=== PATIENT | male | born 1950 | race Caucasian/White ===

== ENCOUNTER 2016-12-28 08:33 | Emergency (ER) | payer MEDICARE, MEDICAID ==
[~2016-12-28 08:33] MED LIST: AMLO10TA2 PO; LORA-475 PO; PROT40TA PO
[2016-12-28 08:36] VITALS: BP 144/77; PULSE 81; RESP 14; TEMP 98; O2SAT 97
--- NOTE | 2016-12-28 09:43 | PD ---
HPI Chief Complaint: GI Complaint Time Seen by Provider: 09:16 Travel History International Travel<30 days: No Contact w/Intl Traveler<30days: No Traveled to known affect area: No History of Present Illness HPI This patient complains of having a hernia. He's had it for one month. He had extensive workup 4 days ago in [facility] emergency room including lab studies and CT of abdomen and pelvis. He was referred to general surgeon. He says he called the surgeon and they couldn't see him for a month so he came to the ER today demanding that this hernia be fix today. Patient immediately develops a hostile demeanor. He is challenging to evaluate or frankly even talk to. He is very insistent and critical and demanding. His symptoms seem quite mild. PFSH Past Medical History Anemia: Yes Anxiety: Yes Depression: Yes Cancer: No Cardiac Catheterization: Yes (stents) Cardiovascular Problems: Yes Diabetes: Yes Dialysis: Yes Endocrine: Yes Genitourinary: No Hepatitis: No Hiatal Hernia: No Immune Disorder: No Musculoskeletal: No Neurologic: No Psychiatric: No Respiratory: Yes (PULMONARY EDEMA) Myocardial Infarction: Yes Thyroid Disease: No Past Surgical History Abdominal Surgery: Yes (INGUINAL HERNIA REPAIR, CHOLECYSTECTOMY) AICD: Yes Body Medical Devices: LEFT ARM FISTULA Cardiac Surgery: Yes (AICD PLACEMENT, STENT PLACEMENT) Cholecystectomy: Yes Ear Surgery: No Endocrine Surgery: No Eye Surgery: No Genitourinary Surgery: No Gynecologic Surgery: No Joint Replacement: No Oral Surgery: No Pacemaker: No Thoracic Surgery: No Other Surgery: Yes (LUE fistula and R port) Social History Alcohol Use: No Tobacco Use: No Substance Use: No Allergies-Medications (Allergen,Severity, Reaction): Coded Allergies: penicillin G (Unverified Allergy, Severe, "WENT CRAZY" - NOT SURE OF REACTION, 10/29/16) Reported Meds & Prescriptions Reported Meds & Active Scripts Active Reported Amlodipine (Amlodipine Besylate) 10 Mg Tab 10 Mg PO NEEDED Ativan (Lorazepam) 2 Mg Tab 3 Mg PO DAILY PRN Protonix (Pantoprazole Sodium) 40 Mg Tab 1 Tab PO BID Review of Systems HENT: No: Headaches Cardiovascular: No: Chest Pain or Discomfort Respiratory: No: Cough Physical Exam Narrative GASTROINTESTINAL: Abdomen soft, non-tender, nondistended. Positive bowel sounds. No hepato-splenomegaly, or palpable masses. No guarding. He may have a very small umbilical hernia about 1 cm x 1 cm. Easily reducible. No erythema or warmth around it NECK: Symmetrical appearance, midline trachea. No mass or crepitus. Thyroid without enlargement, tenderness, or mass. Has dialysis graft in his left forearm SKIN: Focused skin assessment reveals no rash or ulcers. Skin is warm and dry. Palpation shows no induration or nodules. Data Data Last Documented VS Vital Signs Date Time Temp Pulse Resp B/P (MAP) Pulse Ox O2 Delivery O2 Flow Rate FiO2 12/28/16 08:36 98.0 81 14 144/77 (99) 97 MDM Medical Decision Making Medical Screen Exam Complete: Yes Emergency Medical Condition: Yes Medical Record Reviewed: Yes Differential Diagnosis Hernia, colitis, ileus Narrative Course I have reviewed the patient's electronic medical record. I reviewed his [place] paperwork from 4 days ago. He did have recent extensive workup I don't feel that workup is indicated to repeat. I suggested that he try a different general surgeon if the one he called couldn' t get him in for a month. He scoffed at this idea saying that he doesn't know any other surgeons. I offered to give him name and number of one to try. Patient made some disparaging remarks and stormed out of the emergency department without his paperwork He acted very immature Diagnosis Primary Impression: Umbilical hernia without obstruction and without gangrene Additional Impression: ESRD (end stage renal disease) Med/Other Pt SpecificInfo: Other Disposition: 01 DISCHARGE HOME Condition: Stable Avelino Kaur MD Dec 28, 2016 09:43
== END 2016-12-28 11:17 | disposition home or self-care (01) ==
LOC: NEPD 08:33
DX: K42.9 Umbilical hernia without obstruction or gangrene (principal); E11.22 Type 2 diabetes mellitus with diabetic chronic kidney disease; N18.6 End stage renal disease; Z99.2 Dependence on renal dialysis
CPT/HCPCS: 99281

== ENCOUNTER 2017-02-03 12:48 | Inpatient (IN) | payer MEDICARE, MEDICAID ==
[2017-02-03] VITALS (7 sets, daily range): BP systolic 105–119; BP diastolic 70–86; PULSE 64–122; RESP 16–20; TEMP 96.7–97.6; O2SAT 98–100
[~2017-02-03] VITALS: Ht 167.6 cm; Wt 59.0 kg
--- NOTE | 2017-02-03 13:14 | PD ---
HPI Chief Complaint: Respiratory Symptoms Time Seen by Provider: 13:01 Travel History International Travel<30 days: No Contact w/Intl Traveler<30days: No Traveled to known affect area: No History of Present Illness HPI 66-year-old male presents to the emergency department via EMS for evaluation of shortness of breath. Patient states he has felt short of breath for 1 month, but has been progressively worsening. Patient reports history of end-stage renal disease, liver disease, history of 5 cardiac stents, diabetes, pacemaker/ AICD. Patient denies any fevers or chills. He denies any chest pain. He states that his abdomen is getting more and more distended. He states he has had paracentesis and thoracentesis in the past, but has not had in probably 5-6 months. Patient states that he is feeling generally weak. No syncope. He is on 2 L O2 nasal cannula at home. He states he is supposed to wear 24 7, but does not wear it all the time. Patient states that he has not been eating as much because he doesn't want his abdomen to "get salcido". Patient is on hemodialysis with a fistula to the left upper extremity. He gets dialysis Thursday, , Thursday. He is due to get it today. He states that he missed 1 day last week, but does not remember which day it was. Severity is moderate. No exacerbating or alleviating factors. Patient states he is considering hospice, but is not on hospice as of yet. PFSH Past Medical History Anemia: Yes Anxiety: Yes Depression: Yes Cancer: No Cardiac Catheterization: Yes (stents) Cardiovascular Problems: Yes Diabetes: Yes Dialysis: Yes Endocrine: Yes Genitourinary: No Hepatitis: No Hiatal Hernia: No Immune Disorder: No Musculoskeletal: No Neurologic: No Psychiatric: No Respiratory: Yes (PULMONARY EDEMA) Myocardial Infarction: Yes Thyroid Disease: No Past Surgical History Abdominal Surgery: Yes (INGUINAL HERNIA REPAIR, CHOLECYSTECTOMY) AICD: Yes Body Medical Devices: LEFT ARM FISTULA Cardiac Surgery: Yes (AICD PLACEMENT, STENT PLACEMENT) Cholecystectomy: Yes Ear Surgery: No Endocrine Surgery: No Eye Surgery: No Genitourinary Surgery: No Gynecologic Surgery: No Joint Replacement: No Oral Surgery: No Pacemaker: No Thoracic Surgery: No Other Surgery: Yes (LUE fistula and R port) Social History Alcohol Use: No Tobacco Use: No Substance Use: No Allergies-Medications (Allergen,Severity, Reaction): Coded Allergies: penicillin G (Unverified Allergy, Severe, "WENT CRAZY" - NOT SURE OF REACTION, 02/03/17) Reported Meds & Prescriptions Reported Meds & Active Scripts Active Reported Carvedilol 6.25 Mg Tab 6.25 Mg PO BID [place] (Hydrocodone-Acetaminophen) 5 Mg-325 Mg Tab 1 Tab PO BID PRN Ativan (Lorazepam) 2 Mg Tab 3 Mg PO DAILY PRN Protonix (Pantoprazole Sodium) 40 Mg Tab 1 Tab PO DAILY Review of Systems Except as stated in HPI: all other systems reviewed are Neg Physical Exam Narrative GENERAL: Well-nourished, well-developed chronically ill male patient, afebrile. SKIN: Focused skin assessment warm/dry. Patient appears jaundiced. AV fistula noted to left upper extremity with positive bruit and thrill. HEAD: Normocephalic. Atraumatic. EYES: No scleral icterus. No injection or drainage. NECK: Supple, trachea midline. No JVD or lymphadenopathy. CARDIOVASCULAR: Regular rate and rhythm without murmurs, gallops, or rubs. RESPIRATORY: Breath sounds equal bilaterally. No accessory muscle use. Lungs sounds diminished in the bases. GASTROINTESTINAL: Abdomen distended, no tenderness to palpation. MUSCULOSKELETAL: No cyanosis, or edema. BACK: Nontender without obvious deformity. No CVA tenderness. Data Data Last Documented VS Vital Signs Date Time Temp Pulse Resp B/P (MAP) Pulse Ox O2 Delivery O2 Flow Rate FiO2 02/03/17 14:50 64 16 112/86 (95) 100 Room Air 02/03/17 14:37 2.00 02/03/17 13:01 97.6 Orders Orders Complete Blood Count With Diff (02/03/17 13:01) Comprehensive Metabolic Panel (02/03/17 13:01) B-Type Natriuretic Peptide (02/03/17 13:01) Act Partial Throm Time (Ptt) (02/03/17 13:01) Prothrombin Time / Inr (Pt) (02/03/17 13:01) Magnesium (Mg) (02/03/17 13:01) Ckmb (Isoenzyme) Profile (02/03/17 13:01) Troponin I (02/03/17 13:01) Iv Access Insert/Monitor (02/03/17 13:01) Electrocardiogram (02/03/17 13:01) Ecg Monitoring (02/03/17 13:01) Oximetry (02/03/17 13:01) Oxygen Administration (02/03/17 13:01) Chest, Single Ap (02/03/17 13:01) Sodium Chloride 0.9% Flush (Ns Flush) (02/03/17 13:15) Diltiazem Inj (Cardizem Inj) (02/03/17 14:45) Admit Order (Ed Use Only) (02/03/17 14:58) Consult Nephrology (02/03/17 ) Ns (Bolus) Inj (02/03/17 15:00) Labs Laboratory Tests Test 02/03/17 13:20 White Blood Count 9.9 TH/MM3 Red Blood Count 3.79 MIL/MM3 Hemoglobin 11.7 GM/DL Hematocrit 35.4 % Mean Corpuscular Volume 93.3 FL Mean Corpuscular Hemoglobin 30.8 PG Mean Corpuscular Hemoglobin Concent 33.0 % Red Cell Distribution Width 16.4 % Platelet Count 169 TH/MM3 Mean Platelet Volume 9.3 FL Neutrophils (%) (Auto) 77.9 % Lymphocytes (%) (Auto) 8.9 % Monocytes (%) (Auto) 9.0 % Eosinophils (%) (Auto) 3.0 % Basophils (%) (Auto) 1.2 % Neutrophils # (Auto) 7.7 TH/MM3 Lymphocytes # (Auto) 0.9 TH/MM3 Monocytes # (Auto) 0.9 TH/MM3 Eosinophils # (Auto) 0.3 TH/MM3 Basophils # (Auto) 0.1 TH/MM3 CBC Comment DIFF FINAL Differential Comment Prothrombin Time 13.3 SEC Prothromb Time International Ratio 1.2 RATIO Activated Partial Thromboplast Time 28.7 SEC Blood Urea Nitrogen 58 MG/DL Creatinine 5.87 MG/DL Random Glucose 197 MG/DL Total Protein 8.4 GM/DL Albumin 3.4 GM/DL Calcium Level 9.6 MG/DL Magnesium Level 1.8 MG/DL Alkaline Phosphatase 71 U/L Aspartate Amino Transf (AST/SGOT) 25 U/L Alanine Aminotransferase (ALT/SGPT) 21 U/L Total Bilirubin 0.8 MG/DL Sodium Level 132 MEQ/L Potassium Level 6.1 MEQ/L Chloride Level 100 MEQ/L Carbon Dioxide Level 24.1 MEQ/L Anion Gap 8 MEQ/L Estimat Glomerular Filtration Rate 10 ML/MIN Total Creatine Kinase 48 U/L Troponin I 0.04 NG/ML B-Type Natriuretic Peptide 2901 PG/ML MDM Medical Decision Making Medical Screen Exam Complete: Yes Emergency Medical Condition: Yes Medical Record Reviewed: Yes Interpretation(s) chest x-ray - FINDINGS: A single portable frontal view the chest shows cardiomegaly with pulmonary vascular engorgement. Small bilateral pleural effusions with bibasilar intra- alveolar infiltrates. Right-sided pacing device. No pneumothorax. Bony structures are unremarkable. CONCLUSION: Intra-alveolar pulmonary edema. Differential Diagnosis Chronic shortness breath versus pleural effusion versus ACS versus pneumonia Narrative Course 66-year-old male presents to the emergency department for evaluation of worsening shortness of breath for 1 month with history of ESRD, liver disease. EKG, CBC, CMP, BNP, CK, troponin, Magnesium, PTT, PT/INR, chest x-ray are ordered and pending. EKG shows atrial flutter/tachycardia with RVR, heart rate 107, no STEMI. CBC shows no acute abnormality. CMP . shows hyponatremia 132, hyperkalemia 6.1, BUN 58, currently 5.7, glucose 197. BNP is 2901. CK is 48. Troponin is 0.04. Magnesium is 1.8. Coags shows no acute abnormality. Chest x-ray shows and intraalveolar pulmonary edema. Patient's heart rate is in the 120s. He is given Cardizem 0.25 mg/kg. I spoke to patient's diesel mechanic, Dr. Ayala at [phone]. He recommended I contact Dr. Suarez who takes care of his patients here at [place]. Dr. Alberts accepted admission. After Cardizem, the patient became hypotensive with systolic blood pressures 69. He is given normal saline 250 mL's bolus. Blood pressure is up to [address] Alberts is at bedside and is aware. Diagnosis Primary Impression: ESRD (end stage renal disease) Additional Impressions: Pulmonary edema Qualified Codes: J81.0 - Acute pulmonary edema New onset atrial flutter Admitting Information Admitting Physician Requests: Admit Keaton Zacariasclint LEAL Feb 03, 2017 13:14
[2017-02-03] MEDS ORDERED: SODIUM CHLORIDE 0.9% FLUSH 10 ML FLUSH IVF PRN (13:15)
--- NOTE | 2017-02-03 13:40 | RADRPT ---
EXAM DATE/TIME: 02/03/2017 12:17 [facility] COMPARISON: No previous studies available for comparison. INDICATIONS : Short of breath, weakness, abdominal pain MEDICAL HISTORY : Cardiovascular disease. SURGICAL HISTORY : Pacemaker. ENCOUNTER: Initial ACUITY: 1 day PAIN SCORE: Non-responsive. LOCATION: Bilateral chest FINDINGS: A single portable frontal view the chest shows cardiomegaly with pulmonary vascular engorgement. Smal l bilateral pleural effusions with bibasilar intra-alveolar infiltrates. Right-sided pacing device. N o pneumothorax. Bony structures are unremarkable. CONCLUSION: Intra-alveolar pulmonary edema. Chico Ray Jr., MD on February 03, 2017 at 13:38 Board Certified Radiologist. This report was verified electronically.
[2017-02-03 13:55] LABS: AUTOMATED NEUTROPHIL # 7.7 TH/MM3 (1.8-7.7); BASOPHIL # 0.1 TH/MM3 (0-0.2); BASOPHIL % 1.2 % (0.0-2.0); EOSINOPHIL # 0.3 TH/MM3 (0-0.4); HEMATOCRIT 35.4 % (39.0-51.0); HEMO FLAGS DIFF FINAL; LYMPH % 8.9 % (9.0-44.0); LYMPHOCYTE # 0.9 TH/MM3 (1.0-4.8); MEAN CELL VOLUME 93.3 FL (80.0-100.0); MEAN CORPUSCULAR HEMOGLOBIN 30.8 PG (27.0-34.0); NEUT % 77.9 % (16.0-70.0); PLATELET COUNT 169 TH/MM3 (150-450); RED BLOOD COUNT 3.79 MIL/MM3 (4.50-5.90); RED CELL DISTRIBUTION WIDTH 16.4 % (11.6-17.2); WHITE BLOOD COUNT 9.9 TH/MM3 (4.0-11.0)
[2017-02-03 14:04] LABS: APTT (PATIENT) 28.7 SEC (24.3-30.1); INTERNATIONAL NORMALIZED RATIO 1.2 RATIO; PROTHROMBIN TIME - PATIENT 13.3 SEC (9.8-11.6)
[2017-02-03 14:12] LABS: ALT (GPT) 21 U/L (12-78); ANION GAP 8 MEQ/L (5-15); AST (GOT) 25 U/L (15-37); BICARBONATE 24.1 MEQ/L (21.0-32.0); BLOOD UREA NITROGEN 58 MG/DL (7-18); CHLORIDE 100 MEQ/L (98-107); GLOMERULAR FILTRATION RATE 10 ML/MIN (>89); MAGNESIUM 1.8 MG/DL (1.5-2.5); POTASSIUM 6.1 MEQ/L (3.5-5.1); SODIUM (NA) 132 MEQ/L (136-145)
[2017-02-03 14:16] LABS: ALKALINE PHOSPHATASE 71 U/L (45-117); TOTAL BILIRUBIN ADULT 0.8 MG/DL (0.2-1.0)
[2017-02-03 14:17] LABS: CREATINE KINASE 48 U/L (39-308)
[2017-02-03] MEDS ORDERED: CARV6.252 PO (14:26)
[2017-02-03] MEDS ORDERED: NORC5TAB PO (14:26)
[2017-02-03] MEDS ORDERED: DILTIAZEM HCL 25 MG/5 ML VIAL IV PUSH ONE (14:45)
[2017-02-03] MEDS ORDERED: SODIUM CHLOR 0.9% 250 ML INJ 250 ML IV ONE (15:00)
[2017-02-03] MEDS ORDERED: SODIUM CHLOR 0.9% 1000 ML INJ 1,000 ML OTHER PRN ×2 (15:09)
[2017-02-03] MEDS ORDERED: SODIUM CHLOR 0.9% 1000 ML INJ 1,000 ML IV PRN (15:09)
[2017-02-03] MEDS ORDERED: diphenhydrAMINE HCL 25 MG CAP PO PRN (15:15)
[2017-02-03] MEDS ORDERED: NALOXONE HCL 0.4 MG/ML AMP IV PUSH PRN (15:15)
[2017-02-03] MEDS ORDERED: SODIUM CHLORIDE 0.9% FLUSH 10 ML FLUSH IV FLUSH PRN ×2 (15:15)
[2017-02-03] MEDS ORDERED: ONDANSETRON HCL 4 MG/2 ML VIAL IVP PRN (15:15)
[2017-02-03] MEDS ORDERED: MANNITOL 12.5 GM/50 ML VIAL IV PRN (15:15)
[2017-02-03] MEDS ORDERED: ACETAMINOPHEN 325 MG TAB PO PRN ×3 (15:15)
[2017-02-03] MEDS ORDERED: ONDANSETRON HCL 4 MG/2 ML VIAL IV PUSH PRN (15:15)
[2017-02-03] MEDS ORDERED: PROCHLORPERAZINE 25 MG SUPP RECTAL PRN (15:15)
[2017-02-03] MEDS ORDERED: LACTULOSE SYRUP 20 GM/30 ML CUP PO PRN (15:15)
[2017-02-03] MEDS ORDERED: SENNOSIDES 8.6 MG TAB PO PRN (15:15)
[2017-02-03] MEDS ORDERED: MORPHINE SULFATE 4 MG/ML INJ IV PUSH PRN ×2 (15:15)
[2017-02-03] MEDS ORDERED: BISACODYL 10 MG SUPP RECTAL PRN (15:15)
[2017-02-03] MEDS ORDERED: MAGNESIUM HYDROXIDE SUSP 30 ML CUP PO PRN (15:15)
[2017-02-03] MEDS ORDERED: cloNIDine HCL 0.1 MG TAB PO PRN (15:15)
[2017-02-03] MEDS ORDERED: HEPARIN SODIUM - IV 10,000 UNITS/10 ML VIAL IV FLUSH PRN (15:15)
[2017-02-03] MEDS ORDERED: ALBUMIN 25% INJ 100 ML IV PRN (15:15)
[2017-02-03] MEDS ORDERED: oxyCODONE/ACETAMINOPHEN 5 MG/325 MG TAB PO PRN (15:15)
[2017-02-03] MEDS ORDERED: NITROGLYCERIN 0.4 MG SL 25 TABS/BTL SL PRN (15:15)
[2017-02-03] MEDS ORDERED: RESP: ALBUTEROL 2.5 MG/IPRATROPIUM 0.5 MG NEB (PRN) NEB (15:30)
--- NOTE | 2017-02-03 15:34 | HHI.HP ---
[facility] Primary Care Physician Unknown Admission Diagnosis ESRD on hemodialysis; hyperkalemia, pulmonary edema, atrial flutter Diagnoses: (1) Noncompliance with renal dialysis Diagnosis: Principal (2) Fluid overload Diagnosis: Principal (3) ESRD (end stage renal disease) (4) Pulmonary edema Diagnosis: Principal (5) New onset atrial flutter Diagnosis: Principal Travel History International Travel<30 Days: No Contact w/Intl Traveler <30 Da: No Traveled to Known Affected Are: No History of Present Illness Patient is a 66-year-old male who presents to the emergency department via EMS for evaluation of shortness of breath. He is felt short of breath for at least a month. Has had progressive worsening dyspnea. Patient reports history of end -stage renal disease and liver disease and history of 5 cardiac stents and diabetes and pacemaker AICD. Patient denies any fever, chills, patient denies any chest pain, and states his abdomen is getting distended states he's had a paracentesis and thoracentesis in the past 5-6 months. Patient has been feeling generally weak on 2 L by nasal cannula of oxygen at home supposed to wear 24/ does not wear it all the time. He states he has not been eating much does not want to have his abdomen get "salcido." Patient is on hemodialysis via a fistula to the left upper extremity. He is supposed to get dialysis on Thursday, , and Thursday but was due to get it today. He Missed a day last week has been poorly compliant with his dialysis Patient states he is considering hospice but not on hospice yet Review of Systems Constitutional: COMPLAINS OF: Fatigue, Change in appetite, DENIES: Diaphoretic episodes, Fever, Weight gain, Weight loss, Chills, Dizziness Endocrine: DENIES: Heat/cold intolerance, Polydipsia, Polyphagia Eyes: DENIES: Blurred vision, Diplopia Ears, nose, mouth, throat: DENIES: Tinnitus, Hearing loss, Vertigo, Nasal discharge Respiratory: COMPLAINS OF: Cough, DENIES: Apneas, Snoring, Wheezing Cardiovascular: DENIES: Chest pain, Palpitations, Syncope, Dyspnea on Exertion Gastrointestinal: COMPLAINS OF: Abdominal pain, DENIES: Black stools, Bloody stools, Constipation, Diarrhea, Nausea Genitourinary: DENIES: Sexual dysfunction, Urinary frequency Musculoskeletal: DENIES: Joint pain, Muscle aches, Stiffness Integumentary: DENIES: Abnormal pigmentation, Nail changes Hematologic/lymphatic: DENIES: Bruising, Lymphadenopathy Immunologic/allergic: DENIES: Eczema Neurologic: COMPLAINS OF: Abnormal gait, DENIES: Headache, Localized weakness, Paresthesias, Seizures, Speech Problems Psychiatric: COMPLAINS OF: Anxiety, Depression, Agitation, DENIES: Confusion, Mood changes, Hallucinations Except as stated in HPI: all other systems reviewed are Neg Past Family Social History Past Medical History Anemia Chronic anxiety Chronic depression History of cardiac catheterization history of 5 stents History of cardiovascular disease Diabetes mellitus History of end-stage renal disease on hemodialysis History of pulmonary edema history of myocardial infarction Past Surgical History Inguinal hernia repair Cholecystectomy AICD Left upper extremity AV fistula Cardiac stents 5 Multiple eye surgeries History of right-sided port Reported Medications Reported Meds & Active Scripts Active Reported Carvedilol 6.25 Mg Tab 6.25 Mg PO BID [place] (Hydrocodone-Acetaminophen) 5 Mg-325 Mg Tab 1 Tab PO BID PRN Ativan (Lorazepam) 2 Mg Tab 3 Mg PO DAILY PRN Protonix (Pantoprazole Sodium) 40 Mg Tab 1 Tab PO DAILY Allergies: Coded Allergies: penicillin G (Unverified Allergy, Severe, "WENT CRAZY" - NOT SURE OF REACTION, 02/03/17) Active Ordered Medications Current Medications Sodium Chloride (NS Flush) 2 ml UNSCH PRN IVF FLUSH AFTER USING IV ACCESS; Start 02/03/17 at 13:15 Diltiazem HCl (Cardizem Inj) 15 mg BOLUS ONCE IV PUSH Last administered on t 14:42; Start 02/03/17 at 14:45; Stop 02/03/17 at 14:46; Status DC Sodium Chloride 250 ml @ 250 mls/hr BOLUS ONCE IV ; Start 02/03/17 at 15:00; Stop 02/03/17 at 15:59 Sodium Chloride 1,000 ml @ 0 mls/hr Q0M PRN OTHER For Prime & Rinse Back; Start 02/03/17 at 15:09 Heparin Sodium (Porcine) (Heparin Inj) 8,000 units UNSCH PRN IV FLUSH WITH DIALYSIS; Start 02/03/17 at 15:15 Sodium Chloride 1,000 ml @ 200 mls/hr Q5H PRN IV WITH DIALYSIS; Start at 15:09; Status UNV Sodium Chloride 1,000 ml @ 0 mls/hr Q0M PRN OTHER WITH DIALYSIS; Start at 15:09; Status UNV Mannitol (Mannitol Inj) 12.5 gm UNSCH PRN IV WITH DIALYSIS; Start 02/03/17 at 15:15; Status UNV Albumin Human 100 ml @ 60 mls/hr UNSCH PRN IV WITH DIALYSIS; Start 02/03/17 at 15:15; Status UNV Sodium Chloride (NS Flush) 5 ml UNSCH PRN IV FLUSH WITH DIALYSIS; Start at 15:15; Status UNV Ondansetron HCl (Zofran Inj) 4 mg UNSCH PRN IV PUSH WITH DIALYSIS; Start 02/03 at 15:15; Status UNV Acetaminophen (Tylenol) 650 mg UNSCH PRN PO for headach, pain, temp > 101F; Start 02/03/17 at 15:15; Status UNV Diphenhydramine HCl (Benadryl) 25 mg UNSCH PRN PO for hives/itching/anaphylaxis ; Start 02/03/17 at 15:15; Status UNV Nitroglycerin (Nitrostat Sl) 0.4 mg UNSCH PRN SL CHEST PAIN; Start 02/03/17 at 15:15; Status UNV Clonidine (Catapres) 0.1 mg UNSCH PRN PO for BP > 180/100 X 2 readings; Start 02/03/17 at 15:15; Status UNV Epoetin Arias (Epogen Inj) 4,000 units UNSCH PRN IV PUSH WITH DIALYSIS; Start 02/03/17 at 15:15; Status UNV Gelatin (Gelfoam 12 Mm/7 Mm Top) 1 foam UNSCH PRN TOP SEE LABEL COMMENTS; Start 02/03/17 at 15:15; Status UNV Sodium Chloride (NS Flush) 2 ml UNSCH PRN IV FLUSH FLUSH AFTER USING IV ACCESS ; Start 02/03/17 at 15:15; Status UNV Sodium Chloride (NS Flush) 2 ml BID IV FLUSH ; Start 02/03/17 at 21:00; Status UNV Acetaminophen (Tylenol) 650 mg Q4H PRN PO TEMP > 100.4; Start 02/03/17 at 15: 15; Status UNV Ondansetron HCl (Zofran Inj) 4 mg Q6H PRN IVP NAUSEA OR VOMITING; Start at 15:15; Status UNV Prochlorperazine (Compazine Supp) 25 mg Q12H PRN AK NAUSEA OR VOMITING; Start 02/03/17 at 15:15; Status UNV Acetaminophen (Tylenol) 650 mg Q6H PRN PO PAIN SCALE 1 TO 2; Start 02/03/17 at 15:15; Status UNV Oxycodone/ Acetaminophen (Percocet 5-325 Mg) 1 tab Q6H PRN PO PAIN SCALE 3 TO 5; Start 02/03/17 at 15:15; Status UNV Oxycodone/ Acetaminophen (Percocet 10-325 Mg) 1 tab Q6H PRN PO PAIN SCALE 6 TO 10; Start 02/03/17 at 15:15; Status UNV Morphine Sulfate (Morphine Inj) 2 mg Q3H PRN IV PUSH Pain 3-5; if unable to take PO; Start 02/03/17 at 15:15; Status UNV Morphine Sulfate (Morphine Inj) 4 mg Q3H PRN IV PUSH Pain 6-10;if unable to take PO; Start 02/03/17 at 15:15; Status UNV Naloxone HCl (Narcan Inj) 0.4 mg UNSCH PRN IV PUSH SEE LABEL COMMENTS; Start 02/03/17 at 15:15; Status UNV Senna/Docusate Sodium (Althea-Colace) 1 tab BID PO ; Start 02/03/17 at 21:00; Status UNV Magnesium Hydroxide (Milk Of Magnesia Liq) 30 ml Q12H PRN PO Mild constipation ; Start 02/03/17 at 15:15; Status UNV Sennosides (Senokot) 17.2 mg Q12H PRN PO Moderate constipation; Start at 15:15; Status UNV Family History Noncontributory at this time Social History Denies any tobacco alcohol or illicits at this moment had done tobacco and alcohol previously Physical Exam Vital Signs Vital Signs Date Time Temp Pulse Resp B/P (MAP) Pulse Ox O2 Delivery O2 Flow Rate FiO2 02/03/17 14:50 64 16 112/86 (95) 100 Room Air 02/03/17 14:37 120 20 112/86 (95) 100 Nasal Cannula 2.00 02/03/17 13:03 121 17 106/75 (85) 100 Nasal Cannula 2.00 02/03/17 13:03 100 Nasal Cannula 2.00 02/03/17 13:01 97.6 122 18 106/75 (85) 98 Physical Exam GENERAL: This is a well-nourished, well-developed patient, in moderate distress. SKIN: No rashes, ecchymoses or lesions. Cool and dry. HEAD: Atraumatic. Normocephalic. No temporal or scalp tenderness. EYES: Pupils equal round and reactive. Extraocular motions intact. No scleral icterus. No injection or drainage. ENT: Nose without bleeding, purulent drainage or septal hematoma. Throat without erythema, tonsillar hypertrophy or exudate. Uvula midline. Airway patent. NECK: Trachea midline. No JVD or lymphadenopathy. Supple, nontender, no meningeal signs. CARDIOVASCULAR: IRRegular rate and rhythm without murmurs, gallops, or rubs. S1 and S2 no S3 or S4 RESPIRATORY: Some rhonchi No wheezes, rales, or rhonchi. Coarse breath sounds bilaterally GASTROINTESTINAL: Abdomen soft, non-tender, nondistended. No hepato-splenomegaly , or palpable masses. No guarding. MUSCULOSKELETAL: Extremities without clubbing, cyanosis, or edema. No joint tenderness, effusion, or edema noted. No calf tenderness. Negative Homans sign bilaterally. NEUROLOGICAL: Awake and alert. Cranial nerves II through XII intact. Motor and sensory grossly within normal limits. 4 out of 5 muscle strength in all muscle groups. Normal speech. Insight and judgment is limited Mood and behavior is somewhat appropriate Laboratory Laboratory Tests Test 02/03/17 13:20 White Blood Count 9.9 Red Blood Count 3.79 Hemoglobin 11.7 Hematocrit 35.4 Mean Corpuscular Volume 93.3 Mean Corpuscular Hemoglobin 30.8 Mean Corpuscular Hemoglobin Concent 33.0 Red Cell Distribution Width 16.4 Platelet Count 169 Mean Platelet Volume 9.3 Neutrophils (%) (Auto) 77.9 Lymphocytes (%) (Auto) 8.9 Monocytes (%) (Auto) 9.0 Eosinophils (%) (Auto) 3.0 Basophils (%) (Auto) 1.2 Neutrophils # (Auto) 7.7 Lymphocytes # (Auto) 0.9 Monocytes # (Auto) 0.9 Eosinophils # (Auto) 0.3 Basophils # (Auto) 0.1 CBC Comment DIFF FINAL Differential Comment Prothrombin Time 13.3 Prothromb Time International Ratio 1.2 Activated Partial Thromboplast Time 28.7 Blood Urea Nitrogen 58 Creatinine 5.87 Random Glucose 197 Total Protein 8.4 Albumin 3.4 Calcium Level 9.6 Magnesium Level 1.8 Alkaline Phosphatase 71 Aspartate Amino Transf (AST/SGOT) 25 Alanine Aminotransferase (ALT/SGPT) 21 Total Bilirubin 0.8 Sodium Level 132 Potassium Level 6.1 Chloride Level 100 Carbon Dioxide Level 24.1 Anion Gap 8 Estimat Glomerular Filtration Rate 10 Total Creatine Kinase 48 Troponin I 0.04 B-Type Natriuretic Peptide 2901 Result Diagram: 02/03/17 1320 02/03/17 1320 Imaging Last Impressions Chest X-Ray 02/03/17 1301 Signed Impressions: Service Date/Time: Friday, February 03, 2017 12:17 - CONCLUSION: Intra-alveolar pulmonary edema. MD Bree Aguirre Jr. VTE Risk Assessment Caprini VTE Risk Assessment: Mod/High Risk (score >= 2) Caprini Risk Assessment Model Point Value = 1 Point Value = 2 Point Value = 3 Point Value = 5 Age 41-60 Minor surgery BMI > 25 kg/m2 Swollen legs Varicose veins or History of unexplained or recurrent spontaneous Oral contraceptives or hormone replacement Sepsis (< 1 month) Serious lung disease, including pneumonia (< 1 month) Abnormal pulmonary function Acute myocardial infarction Congestive heart failure (< 1 month) History of inflammatory bowel disease Medical patient at bed rest Age 61-74 Arthroscopic surgery Major open surgery (> 45 min) Laparoscopic surgery (> 45 min) Malignancy Confined to bed (> 72 hours) Immobilizing plaster cast Central venous access Age >= 75 History of VTE Family history of VTE Factor V Leiden Prothrombin [id number] Lupus anticoagulant Anticardiolipin antibodies Elevated serum homocysteine Heparin-induced thrombocytopenia Other congenital or acquired thrombophilia Stroke (< 1 month) Elective arthroplasty Hip, pelvis, or leg fracture Acute spinal cord injury (< 1 month) Prophylaxis Regimen Total Risk Factor Score Risk Level Prophylaxis Regimen 0-1 Low Early ambulation 2 Moderate Order ONE of the following: *Sequential Compression Device (SCD) *Heparin 5000 units SQ BID 3-4 Higher Order ONE of the following medications: *Heparin 5000 units SQ TID *Enoxaparin/Lovenox 40 mg SQ daily (WT < 150 kg, CrCl > 30 mL/min) *Enoxaparin/Lovenox 30 mg SQ daily (WT < 150 kg, CrCl > 10-29 mL/min) *Enoxaparin/Lovenox 30 mg SQ BID (WT < 150 kg, CrCl > 30 mL/min) AND/OR *Sequential Compression Device (SCD) 5 or more Highest Order ONE of the following medications: *Heparin 5000 units SQ TID (Preferred with Epidurals) *Enoxaparin/Lovenox 40 mg SQ daily (WT < 150 kg, CrCl > 30 mL/min) *Enoxaparin/Lovenox 30 mg SQ daily (WT < 150 kg, CrCl > 10-29 mL/min) *Enoxaparin/Lovenox 30 mg SQ BID (WT < 150 kg, CrCl > 30 mL/min) AND *Sequential Compression Device (SCD) Assessment and Plan Assessment and Plan End-stage renal disease with noncompliance with fluid intake and dialysis Consult nephrology Hopefully to have hemodialysis today Hyperkalemia consult nephrology hopefully to have hemodialysis today Pulmonary edema due to noncompliance consult nephrology for dialysis Hypertension/A. fib/flutter by history continue on Coreg once blood pressure stable Noncompliance Hypotension currently will give fluids Physical therapy and occupational therapy to eval and treat Case management consult Palliative care consult Possible hospice consult Await nephrology eval and treat We'll check sugars before meals and at bedtime sliding scale coverage Code Status Full code at this time Discussed Condition With Discussed with the emergency room EXPLOSIVE OPERATOR GRENADE and patient and RN Physician Certification 2 Midnight Certification Type: Admission for Inpatient Services Order for Inpatient Services The services are ordered in accordance with Medicare regulations or non- Medicare payer requirements, as applicable. In the case of services not specified as inpatient-only, they are appropriately provided as inpatient services in accordance with the 2-midnight benchmark. Estimated LOS (days): 3 3 days is the estimated time the patient will need to remain in the hospital, assuming treatment plan goals are met and no additional complications. Post-Hospital Plan: Not yet determined Problem Qualifiers (1) Pulmonary edema: Qualified Codes: J81.0 - Acute pulmonary edema Amari Alberts DO Feb 03, 2017 15:34
[2017-02-03] MEDS ORDERED: DEXTROSE 50% IN WATER 50 ML VIAL(D50) IV PUSH PRN (15:45)
[2017-02-03] MEDS ORDERED: GLUCAGON 1 MG/ML VIAL OTHER PRN (15:45)
[2017-02-03] MEDS: GELATIN 12 MM/7 MM FOAM TOP PRN (16:40)
[2017-02-03] MEDS: INSULIN ASPART SUPPLEMENTAL SCALE SQ SCH ×2 (17:00→23:23)
--- NOTE | 2017-02-03 18:17 | PD.CONS ---
HPI Service Nephrology Consult Requested By [place] LEAL Reason for Consult ESRD CHF Primary Care Physician Unknown History of Present Illness Patient is a 66-year-old white male who has end-stage renal disease on hemodialysis, cardiomyopathy, congestive heart failure he stated that he was with Dr. QUIROS and then moved to this area and saw Dr. Amado, he misses dialysis yesterday and came to hospital with increasing shortness of breath, congestive heart failure, he was seen at dialysis and decided to sign off and go to the hospice as he is feeling sick he said that he has generalized anasarca , pleural effusion abdominal fluid buildup and he is not going to stay on dialysis Review of Systems Constitutional: COMPLAINS OF: Fatigue Respiratory: COMPLAINS OF: Shortness of breath Cardiovascular: COMPLAINS OF: Chest pain, Lower Extremity Edema, Orthopnea Gastrointestinal: COMPLAINS OF: Anorexia Musculoskeletal: COMPLAINS OF: Joint pain, Muscle aches Neurologic: COMPLAINS OF: Abnormal gait Psychiatric: COMPLAINS OF: Depression Past Family Social History Allergies: Coded Allergies: penicillin G (Verified Allergy, Severe, "WENT CRAZY" - NOT SURE OF REACTION, 02/03/17) Past Medical History Diabetes Hypertension Coronary artery disease Cardiomyopathy AICD CHF Anemia Anasarca Past Surgical History Inguinal hernia repair AV fistula left forearm Coronary artery stents 5 AICD placement Reported Medications Reported Meds & Active Scripts Active Reported Carvedilol 6.25 Mg Tab 6.25 Mg PO BID [place] (Hydrocodone-Acetaminophen) 5 Mg-325 Mg Tab 1 Tab PO BID PRN Ativan (Lorazepam) 2 Mg Tab 3 Mg PO DAILY PRN Protonix (Pantoprazole Sodium) 40 Mg Tab 1 Tab PO DAILY Active Ordered Medications Current Medications Medications (Trade) Dose Ordered Sig/Ayla Route Start Time Stop Time Status Last Admin Sodium Chloride 1,000 ml @ 0 mls/hr Q0M PRN OTHER 02/03/17 15:09 (Heparin Inj) 8,000 units UNSCH PRN IV FLUSH 02/03/17 15:15 Sodium Chloride 1,000 ml @ 200 mls/hr Q5H PRN IV 02/03/17 15:09 Sodium Chloride 1,000 ml @ 0 mls/hr Q0M PRN OTHER 02/03/17 15:09 (Mannitol Inj) 12.5 gm UNSCH PRN IV 02/03/17 15:15 Albumin Human 100 ml @ 60 mls/hr UNSCH PRN IV 02/03/17 15:15 (NS Flush) 5 ml UNSCH PRN IV FLUSH 02/03/17 15:15 (Zofran Inj) 4 mg UNSCH PRN IV PUSH 02/03/17 15:15 (Tylenol) 650 mg UNSCH PRN PO 02/03/17 15:15 (Benadryl) 25 mg UNSCH PRN PO 02/03/17 15:15 (Nitrostat Sl) 0.4 mg UNSCH PRN SL 02/03/17 15:15 (Catapres) 0.1 mg UNSCH PRN PO 02/03/17 15:15 (Epogen Inj) 4,000 units UNSCH PRN IV PUSH 02/03/17 15:15 (Gelfoam 12 Mm/7 Mm Top) 1 foam UNSCH PRN TOP 02/03/17 15:15 (NS Flush) 2 ml UNSCH PRN IV FLUSH 02/03/17 15:15 (NS Flush) 2 ml BID IV FLUSH 02/03/17 21:00 (Tylenol) 650 mg Q4H PRN PO 02/03/17 15:15 (Zofran Inj) 4 mg Q6H PRN IVP 02/03/17 15:15 (Compazine Supp) 25 mg Q12H PRN RECTAL 02/03/17 15:15 (Tylenol) 650 mg Q6H PRN PO 02/03/17 15:15 (Percocet 5-325 Mg) 1 tab Q6H PRN PO 02/03/17 15:15 (Percocet 10-325 Mg) 1 tab Q6H PRN PO 02/03/17 15:15 (Morphine Inj) 2 mg Q3H PRN IV PUSH 02/03/17 15:15 (Morphine Inj) 4 mg Q3H PRN IV PUSH 02/03/17 15:15 (Narcan Inj) 0.4 mg UNSCH PRN IV PUSH 02/03/17 15:15 (Althea-Colace) 1 tab BID PO 02/03/17 21:00 (Milk Of Magnesia Liq) 30 ml Q12H PRN PO 02/03/17 15:15 (Senokot) 17.2 mg Q12H PRN PO 02/03/17 15:15 (Dulcolax Supp) 10 mg DAILY PRN RECTAL 02/03/17 15:15 (Lactulose Liq) 30 ml DAILY PRN PO 02/03/17 15:15 (Coreg) 6.25 mg BID PO 02/03/17 21:00 (Protonix) 40 mg DAILY PO 02/04/17 09:00 (Duoneb Neb) 1 ampule Q4HR NEB PRN NEB 02/03/17 15:30 (D50w (Vial) Inj) 50 ml UNSCH PRN IV PUSH 02/03/17 15:45 (Glucagon Inj) 1 mg UNSCH PRN OTHER 02/03/17 15:45 (NovoLOG SUPPLEMENTAL SCALE) 1 ACHS SLIDING SCALE SQ 02/03/17 17:00 Family History Noncontributory Social History He denies smoking or alcohol use Physical Exam Vital Signs Vital Signs Date Time Temp Pulse Resp B/P (MAP) Pulse Ox O2 Delivery O2 Flow Rate FiO2 02/03/17 15:47 100 Nasal Cannula 2.00 02/03/17 14:50 64 16 112/86 (95) 100 Room Air 02/03/17 14:37 120 20 112/86 (95) 100 Nasal Cannula 2.00 02/03/17 13:03 121 17 106/75 (85) 100 Nasal Cannula 2.00 02/03/17 13:03 100 Nasal Cannula 2.00 02/03/17 13:01 97.6 122 18 106/75 (85) 98 Physical Exam GENERAL: Malnourished, well-developed patient. SKIN: Warm and dry. HEAD: Normocephalic. EYES: No scleral icterus. No injection or drainage. NECK: Supple, trachea midline. No JVD or lymphadenopathy. CARDIOVASCULAR: Irregular AICD in place RESPIRATORY: Diminished at bases GASTROINTESTINAL: Abdomen soft, non-tender, nondistended. EXTREMITIES: No cyanosis, mild edema. NEUROLOGICAL: Awake, alert, and oriented x 3. Non-focal. Laboratory Laboratory Tests Test 02/03/17 13:20 White Blood Count 9.9 Red Blood Count 3.79 Hemoglobin 11.7 Hematocrit 35.4 Mean Corpuscular Volume 93.3 Mean Corpuscular Hemoglobin 30.8 Mean Corpuscular Hemoglobin Concent 33.0 Red Cell Distribution Width 16.4 Platelet Count 169 Mean Platelet Volume 9.3 Neutrophils (%) (Auto) 77.9 Lymphocytes (%) (Auto) 8.9 Monocytes (%) (Auto) 9.0 Eosinophils (%) (Auto) 3.0 Basophils (%) (Auto) 1.2 Neutrophils # (Auto) 7.7 Lymphocytes # (Auto) 0.9 Monocytes # (Auto) 0.9 Eosinophils # (Auto) 0.3 Basophils # (Auto) 0.1 CBC Comment DIFF FINAL Differential Comment Prothrombin Time 13.3 Prothromb Time International Ratio 1.2 Activated Partial Thromboplast Time 28.7 Blood Urea Nitrogen 58 Creatinine 5.87 Random Glucose 197 Total Protein 8.4 Albumin 3.4 Calcium Level 9.6 Magnesium Level 1.8 Alkaline Phosphatase 71 Aspartate Amino Transf (AST/SGOT) 25 Alanine Aminotransferase (ALT/SGPT) 21 Total Bilirubin 0.8 Sodium Level 132 Potassium Level 6.1 Chloride Level 100 Carbon Dioxide Level 24.1 Anion Gap 8 Estimat Glomerular Filtration Rate 10 Total Creatine Kinase 48 Troponin I 0.04 B-Type Natriuretic Peptide 2901 Result Diagram: 02/03/17 1320 02/03/17 1320 Imaging Last Impressions Chest X-Ray 02/03/17 1301 Signed Impressions: Service Date/Time: Friday, February 03, 2017 12:17 - CONCLUSION: Intra-alveolar pulmonary edema. Chico Ray Jr., MD Assessment and Plan Problem List: (1) ESRD (end stage renal disease) ICD Codes: N18.6 - End stage renal disease Status: Acute Plan: Patient signed AMA and wanted to go to hospice, he stopped his dialysis and had partial dialysis with 400 cc removed He was told the consequences of not doing the dialysis including He is fully aware and wants to make that decision as he is not feeling any better (2) Pulmonary edema ICD Codes: J81.1 - Chronic pulmonary edema Status: Acute Plan: Patient stopping dialysis now and going to hospice Problem Qualifiers (1) Pulmonary edema: Qualified Codes: J81.0 - Acute pulmonary edema Ara Suarez MD Feb 03, 2017 18:17
[2017-02-03] MEDS: oxyCODONE/ACETAMINOPHEN 10 MG/325 MG TAB PO PRN (20:04)
[2017-02-03] MEDS: DOCUSATE SODIUM 50 MG/SENNA 8.6 MG TAB PO SCH (23:24)
[2017-02-03] MEDS: CARVEDILOL 6.25 MG TAB PO SCH (23:25)
[2017-02-04] MEDS: SODIUM CHLORIDE 0.9% FLUSH 10 ML FLUSH IV FLUSH SCH ×3 (01:29→21:39)
[2017-02-04] MEDS: oxyCODONE/ACETAMINOPHEN 10 MG/325 MG TAB PO PRN ×3 (03:10→17:24)
[2017-02-04 04:00] VITALS: BP 99/64; PULSE 93; RESP 20; TEMP 96.7; O2SAT 94
[2017-02-04 05:23] LABS: AUTOMATED NEUTROPHIL # 5.4 TH/MM3 (1.8-7.7); BASOPHIL # 0.1 TH/MM3 (0-0.2); BASOPHIL % 1.4 % (0.0-2.0); EOSINOPHIL # 0.3 TH/MM3 (0-0.4); EOSINOPHIL % 3.5 % (0.0-4.0); HEMATOCRIT 33.3 % (39.0-51.0); HEMO FLAGS DIFF FINAL; LYMPH % 14.3 % (9.0-44.0); LYMPHOCYTE # 1.1 TH/MM3 (1.0-4.8); MEAN CELL VOLUME 92.2 FL (80.0-100.0); MEAN CORPUSCULAR HEMOGLOBIN 30.2 PG (27.0-34.0); MEAN CORPUSCULAR HGB CONC 32.8 % (32.0-36.0); MONO % 13.1 % (0.0-8.0); NEUT % 67.7 % (16.0-70.0); PLATELET COUNT 133 TH/MM3 (150-450); RED BLOOD COUNT 3.61 MIL/MM3 (4.50-5.90); RED CELL DISTRIBUTION WIDTH 16.4 % (11.6-17.2)
[2017-02-04 05:50] LABS: ALT (GPT) 25 U/L (12-78); ANION GAP 11 MEQ/L (5-15); AST (GOT) 22 U/L (15-37); BICARBONATE 24.6 MEQ/L (21.0-32.0); BLOOD UREA NITROGEN 52 MG/DL (7-18); CHLORIDE 102 MEQ/L (98-107); GLOMERULAR FILTRATION RATE 10 ML/MIN (>89); MAGNESIUM 1.7 MG/DL (1.5-2.5); POTASSIUM 5.4 MEQ/L (3.5-5.1); SODIUM (NA) 138 MEQ/L (136-145)
[2017-02-04 05:59] LABS: ALKALINE PHOSPHATASE 64 U/L (45-117); FREE T4 1.05 NG/DL (0.76-1.46); TOTAL BILIRUBIN ADULT 0.8 MG/DL (0.2-1.0)
[2017-02-04 06:00] LABS: CREATINE KINASE 32 U/L (39-308)
[2017-02-04] MEDS: INSULIN ASPART SUPPLEMENTAL SCALE SQ SCH ×4 (08:00→21:23)
[2017-02-04 08:19] VITALS: BP 110/70; PULSE 97; RESP 17; TEMP 97.4; O2SAT 94
[2017-02-04] MEDS: DOCUSATE SODIUM 50 MG/SENNA 8.6 MG TAB PO SCH ×2 (08:25→21:39)
[2017-02-04] MEDS: CARVEDILOL 6.25 MG TAB PO SCH ×2 (09:00→21:39)
[2017-02-04] MEDS: PANTOPRAZOLE SOD 40 MG DELAYED RELEASE TAB PO SCH (09:13)
--- NOTE | 2017-02-04 09:58 | EKG ---
Date Performed: 02/03/2017 Time Performed: 15:14:58 PTAGE: 66 years EKG: ECTOPIC ATRIAL BRADYCARDIA LOW QRS VOLTAGE IN EXTREMITY LEADS SEPTAL MYOCARDIAL INFARCTION ABNORMAL ECG PREVIOUS TRACING : 02/03/2017 13.28 DOCTOR: Juan Pablo Krause Interpretating Date/Time 02/04/2017 09:56:01
--- NOTE | 2017-02-04 10:04 | EKG ---
Date Performed: 02/03/2017 Time Performed: 13:28:10 PTAGE: 66 years EKG: ATRIAL FLUTTER/TACHYCARDIA WITH RAPID VENTRICULAR RESPONSE LOW QRS VOLTAGE IN EXTREMITY MARIE DS SEPTAL MYOCARDIAL INFARCTION ABNORMAL ECG NO PREVIOUS TRACING DOCTOR: Juan Pablo Krause Interpretating Date/Time 02/04/2017 10:02:41
--- NOTE | 2017-02-04 11:22 | HHI.HCPN ---
Palliative care consulted to assist with goals of care for Mr. Vann. Appears later in the evening he indicated he wanted to transition to comfort focused care supported by hospice services. Hospice consult was placed. Palliative care will remain available should Mr. Vann decide not to engage hospice services. Sunshine Ray, SALVAGE INSPECTOR Feb 04, 2017 11:22
--- NOTE | 2017-02-04 11:38 | HHI.PR ---
Subjective Remarks Patient is a 66-year-old male who presents to the emergency department via EMS for evaluation of shortness of breath. He is felt short of breath for at least a month. Has had progressive worsening dyspnea. Patient reports history of end -stage renal disease and liver disease and history of 5 cardiac stents and diabetes and pacemaker AICD. Patient denies any fever, chills, patient denies any chest pain, and states his abdomen is getting distended states he's had a paracentesis and thoracentesis in the past 5-6 months. Patient has been feeling generally weak on 2 L by nasal cannula of oxygen at home supposed to wear 06/10 does not wear it all the time. He states he has not been eating much does not want to have his abdomen get "salcido." Patient is on hemodialysis via a fistula to the left upper extremity. He is supposed to get dialysis on Thursday, , and Thursday but was due to get it today. He Missed a day last week has been poorly compliant with his dialysis Patient states he is considering hospice but not on hospice yet Patient is a 66-year-old white male who has end-stage renal disease on hemodialysis, cardiomyopathy, congestive heart failure he stated that he was with Dr. QUIROS and then moved to this area and saw Dr. Amado, he misses dialysis yesterday and came to hospital with increasing shortness of breath, congestive heart failure, he was seen at dialysis and decided to sign off and go to the hospice as he is feeling sick he said that he has generalized anasarca , pleural effusion abdominal fluid buildup and he is not going to stay on dialysis 02-04 patient stopped dialysis yesterday Patient is considering hospice but per our discussion it appears he wants procedures done which does not fit with hospice Patient is very anxious. Wants Ativan We'll get physical therapy and occupational therapy to eval and treat We'll get a.m. labs Possible discharge later this week Objective Vitals Vital Signs Date Time Temp Pulse Resp B/P (MAP) Pulse Ox O2 Delivery O2 Flow Rate FiO2 02/04/17 10:13 18 02/04/17 08:19 97.4 97 17 110/70 (83) 94 02/04/17 04:00 96.7 93 20 99/64 (76) 94 02/03/17 23:16 96.7 86 105/70 (82) 98 02/03/17 20:00 97.0 85 20 119/71 (87) 99 02/03/17 15:47 100 Nasal Cannula 2.00 02/03/17 14:50 64 16 112/86 (95) 100 Room Air 02/03/17 14:37 120 20 112/86 (95) 100 Nasal Cannula 2.00 02/03/17 13:03 121 17 106/75 (85) 100 Nasal Cannula 2.00 02/03/17 13:03 100 Nasal Cannula 2.00 02/03/17 13:01 97.6 122 18 106/75 (85) 98 I/O 02/03/17 02/03/17 02/03/17 02/04/17 02/04/17 02/04/17 07:00 15:00 23:00 07:00 15:00 23:00 Intake Total 120 ml 120 ml Output Total 500 ml Balance -380 ml 120 ml Intake Oral 120 ml 120 ml Output Hemodialysis 500 ml Result Diagram: 02/04/17 0440 02/04/17 0440 Other Results Laboratory Tests Test 02/03/17 13:20 02/04/17 04:40 White Blood Count 9.9 TH/MM3 8.0 TH/MM3 Red Blood Count 3.79 MIL/MM3 3.61 MIL/MM3 Hemoglobin 11.7 GM/DL 10.9 GM/DL Hematocrit 35.4 % 33.3 % Mean Corpuscular Volume 93.3 FL 92.2 FL Mean Corpuscular Hemoglobin 30.8 PG 30.2 PG Mean Corpuscular Hemoglobin Concent 33.0 % 32.8 % Red Cell Distribution Width 16.4 % 16.4 % Platelet Count 169 TH/MM3 133 TH/MM3 Mean Platelet Volume 9.3 FL 9.5 FL Neutrophils (%) (Auto) 77.9 % 67.7 % Lymphocytes (%) (Auto) 8.9 % 14.3 % Monocytes (%) (Auto) 9.0 % 13.1 % Eosinophils (%) (Auto) 3.0 % 3.5 % Basophils (%) (Auto) 1.2 % 1.4 % Neutrophils # (Auto) 7.7 TH/MM3 5.4 TH/MM3 Lymphocytes # (Auto) 0.9 TH/MM3 1.1 TH/MM3 Monocytes # (Auto) 0.9 TH/MM3 1.0 TH/MM3 Eosinophils # (Auto) 0.3 TH/MM3 0.3 TH/MM3 Basophils # (Auto) 0.1 TH/MM3 0.1 TH/MM3 CBC Comment DIFF FINAL DIFF FINAL Differential Comment Prothrombin Time 13.3 SEC Prothromb Time International Ratio 1.2 RATIO Activated Partial Thromboplast Time 28.7 SEC Blood Urea Nitrogen 58 MG/DL 52 MG/DL Creatinine 5.87 MG/DL 5.56 MG/DL Random Glucose 197 MG/DL 136 MG/DL Total Protein 8.4 GM/DL 7.7 GM/DL Albumin 3.4 GM/DL 3.6 GM/DL Calcium Level 9.6 MG/DL 8.9 MG/DL Magnesium Level 1.8 MG/DL 1.7 MG/DL Alkaline Phosphatase 71 U/L 64 U/L Aspartate Amino Transf (AST/SGOT) 25 U/L 22 U/L Alanine Aminotransferase (ALT/SGPT) 21 U/L 25 U/L Total Bilirubin 0.8 MG/DL 0.8 MG/DL Sodium Level 132 MEQ/L 138 MEQ/L Potassium Level 6.1 MEQ/L 5.4 MEQ/L Chloride Level 100 MEQ/L 102 MEQ/L Carbon Dioxide Level 24.1 MEQ/L 24.6 MEQ/L Anion Gap 8 MEQ/L 11 MEQ/L Estimat Glomerular Filtration Rate 10 ML/MIN 10 ML/MIN Total Creatine Kinase 48 U/L 32 U/L Troponin I 0.04 NG/ML 0.03 NG/ML B-Type Natriuretic Peptide 2901 PG/ML Phosphorus Level 4.4 MG/DL Free Thyroxine 1.05 NG/DL Thyroid Stimulating Hormone 3rd Gen 3.060 uIU/ML Imaging Last Impressions Chest X-Ray 02/03/17 1301 Signed Impressions: Service Date/Time: Friday, February 03, 2017 12:17 - CONCLUSION: Intra-alveolar pulmonary edema. Chico Ray Jr., MD Objective Remarks GENERAL: Awake and alert talkative and anxious has not made up his mind about hospice SKIN: Warm and dry. HEAD: Atraumatic. Normocephalic. EYES: Pupils equal and round. No scleral icterus. No injection or drainage. Extraocular muscles intact ENT: No nasal bleeding or discharge. Mucous membranes pink and moist. Tongue is midline NECK: Trachea midline. No JVD. Neck is supple CARDIOVASCULAR: Regular rate and rhythm. S1 and S2 no S3 or S4 RESPIRATORY: No accessory muscle use. Clear to auscultation. Breath sounds equal bilaterally. GASTROINTESTINAL: Abdomen soft, non-tender, nondistended. Hepatic and splenic margins not palpable. MUSCULOSKELETAL: Extremities without clubbing, cyanosis, or edema. No obvious deformities. NEUROLOGICAL: Awake and alert. No obvious cranial nerve deficits. Motor grossly within normal limits. 4 out of 5 muscle strength in the arms and legs. Normal speech. PSYCHIATRIC: INAppropriate mood and affect; insight and judgment ABnormal. Procedures Hemodialysis Medications and IVs Current Medications Sodium Chloride (NS Flush) 2 ml UNSCH PRN IVF FLUSH AFTER USING IV ACCESS; Start 02/03/17 at 13:15; Stop 02/03/17 at 15:35; Status DC Diltiazem HCl (Cardizem Inj) 15 mg BOLUS ONCE IV PUSH Last administered on 14:42; Start 02/03/17 at 14:45; Stop 02/03/17 at 14:46; Status DC Sodium Chloride 250 ml @ 250 mls/hr BOLUS ONCE IV Last administered on 15:31; Start 02/03/17 at 15:00; Stop 02/03/17 at 15:59; Status DC Sodium Chloride 1,000 ml @ 0 mls/hr Q0M PRN OTHER For Prime & Rinse Back Last administered on 02/03/17 16:40; Start 02/03/17 at 15:09 Heparin Sodium (Porcine) (Heparin Inj) 8,000 units UNSCH PRN IV FLUSH WITH DIALYSIS; Start 02/03/17 at 15:15 Sodium Chloride 1,000 ml @ 200 mls/hr Q5H PRN IV WITH DIALYSIS; Start at 15:09 Sodium Chloride 1,000 ml @ 0 mls/hr Q0M PRN OTHER WITH DIALYSIS; Start at 15:09 Mannitol (Mannitol Inj) 12.5 gm UNSCH PRN IV WITH DIALYSIS Last administered on 02/03/17 16:40; Start 02/03/17 at 15:15 Albumin Human 100 ml @ 60 mls/hr UNSCH PRN IV WITH DIALYSIS; Start 02/03/17 at 15:15 Sodium Chloride (NS Flush) 5 ml UNSCH PRN IV FLUSH WITH DIALYSIS; Start at 15:15 Ondansetron HCl (Zofran Inj) 4 mg UNSCH PRN IV PUSH WITH DIALYSIS; Start 02/03 at 15:15 Acetaminophen (Tylenol) 650 mg UNSCH PRN PO for headach, pain, temp > 101F; Start 02/03/17 at 15:15 Diphenhydramine HCl (Benadryl) 25 mg UNSCH PRN PO for hives/itching/anaphylaxis ; Start 02/03/17 at 15:15 Nitroglycerin (Nitrostat Sl) 0.4 mg UNSCH PRN SL CHEST PAIN; Start 02/03/17 at 15:15 Clonidine (Catapres) 0.1 mg UNSCH PRN PO for BP > 180/100 X 2 readings; Start 02/03/17 at 15:15 Epoetin Arias (Epogen Inj) 4,000 units UNSCH PRN IV PUSH WITH DIALYSIS; Start 02/03/17 at 15:15 Gelatin (Gelfoam 12 Mm/7 Mm Top) 1 foam UNSCH PRN TOP SEE LABEL COMMENTS Last administered on 02/03/17t 16:40; Start 02/03/17 at 15:15 Sodium Chloride (NS Flush) 2 ml UNSCH PRN IV FLUSH FLUSH AFTER USING IV ACCESS ; Start 02/03/17 at 15:15 Sodium Chloride (NS Flush) 2 ml BID IV FLUSH Last administered on 02/04/17t 09 :00; Start 02/03/17 at 21:00 Acetaminophen (Tylenol) 650 mg Q4H PRN PO TEMP > 100.4; Start 02/03/17 at 15: 15 Ondansetron HCl (Zofran Inj) 4 mg Q6H PRN IVP NAUSEA OR VOMITING; Start at 15:15 Prochlorperazine (Compazine Supp) 25 mg Q12H PRN RECTAL NAUSEA OR VOMITING; Start 02/03/17 at 15:15 Acetaminophen (Tylenol) 650 mg Q6H PRN PO PAIN SCALE 1 TO 2; Start 02/03/17 at 15:15 Oxycodone/ Acetaminophen (Percocet 5-325 Mg) 1 tab Q6H PRN PO PAIN SCALE 3 TO 5; Start 02/03/17 at 15:15 Oxycodone/ Acetaminophen (Percocet 10-325 Mg) 1 tab Q6H PRN PO PAIN SCALE 6 TO 10 Last administered on 02/04/17 09:13; Start 02/03/17 at 15:15 Morphine Sulfate (Morphine Inj) 2 mg Q3H PRN IV PUSH Pain 3-5; if unable to take PO; Start 02/03/17 at 15:15 Morphine Sulfate (Morphine Inj) 4 mg Q3H PRN IV PUSH Pain 6-10;if unable to take PO; Start 02/03/17 at 15:15 Naloxone HCl (Narcan Inj) 0.4 mg UNSCH PRN IV PUSH SEE LABEL COMMENTS; Start 02/03/17 at 15:15 Senna/Docusate Sodium (Althea-Colace) 1 tab BID PO ; Start 02/03/17 at 21:00 Magnesium Hydroxide (Milk Of Magnesia Liq) 30 ml Q12H PRN PO Mild constipation ; Start 02/03/17 at 15:15 Sennosides (Senokot) 17.2 mg Q12H PRN PO Moderate constipation; Start at 15:15 Bisacodyl (Dulcolax Supp) 10 mg DAILY PRN RECTAL SEVERE CONSITIPATION; Start 02/03/17 at 15:15 Lactulose (Lactulose Liq) 30 ml DAILY PRN PO SEVERE CONSITIPATION; Start 02/03 at 15:15 Carvedilol (Coreg) 6.25 mg BID PO ; Start 02/03/17 at 21:00 Pantoprazole Sodium (Protonix) 40 mg DAILY PO Last administered on 02/04/17 09:13; Start 02/04/17 at 09:00 Albuterol/ Ipratropium (Duoneb Neb) 1 ampule Q4HR NEB PRN NEB SHORTNESS OF BREATH; Start 02/03/17 at 15:30 Dextrose (D50w (Vial) Inj) 50 ml UNSCH PRN IV PUSH HYPOGLYCEMIA-SEE COMMENTS; Start 02/03/17 at 15:45 Glucagon (Glucagon Inj) 1 mg UNSCH PRN OTHER HYPOGLYCEMIA-SEE COMMENTS; Start 02/03/17 at 15:45 Insulin Aspart (NovoLOG SUPPLEMENTAL SCALE) 1 ACHS SLIDING SCALE SQ ; Start at 17:00 A/P Problem List: (1) Noncompliance with renal dialysis ICD Code: Z91.15 - Patient's noncompliance with renal dialysis (2) Fluid overload ICD Code: E87.70 - Fluid overload, unspecified (3) ESRD (end stage renal disease) ICD Code: N18.6 - End stage renal disease Status: Acute (4) Pulmonary edema ICD Code: J81.1 - Chronic pulmonary edema Status: Acute (5) New onset atrial flutter ICD Code: I48.92 - Unspecified atrial flutter Status: Acute Assessment and Plan End-stage renal disease with noncompliance with fluid intake and dialysis Consult nephrology Hopefully to have hemodialysis today Hyperkalemia consult nephrology hopefully to have hemodialysis today Pulmonary edema due to noncompliance consult nephrology for dialysis Hypertension/A. fib/flutter by history continue on Coreg once blood pressure stable Noncompliance Hypotension currently will give fluids-resolved Anxiety continue on Ativan Physical therapy and occupational therapy to eval and treat Case management consult Palliative care consult Possible hospice consult--it appears patient still wants procedures and dialysis which does not fit with the auspices of hospice Therefore we will let him investigate hospice but it does not appear that he will select hospice Await nephrology eval and treat We'll check sugars before meals and at bedtime sliding scale coverage A.m. labs Discharge Planning Pending clearance by nephrology Problem Qualifiers (1) Pulmonary edema: Qualified Codes: J81.0 - Acute pulmonary edema Amari Alberts DO Feb 04, 2017 11:38
[2017-02-04 12:00] VITALS: BP 111/80; PULSE 102; RESP 18; TEMP 97; O2SAT 98; O2SAT 99
[2017-02-04] MEDS: LORazepam 1 MG TAB PO PRN (12:23)
--- NOTE | 2017-02-04 13:03 | HHI.NPPN ---
Subjective History of Present Illness 66 year old male with CHF/AICD , ESRD Interval History He wanted hospice Additional Remarks now changed his mind and want to do Hemodialysis Objective Data Data Vital Signs Date Time Temp Pulse Resp B/P (MAP) Pulse Ox O2 Delivery O2 Flow Rate FiO2 02/04/17 12:00 97.0 102 18 111/80 (90) 99 02/04/17 10:13 18 02/04/17 08:19 97.4 97 17 110/70 (83) 94 02/04/17 04:00 96.7 93 20 99/64 (76) 94 02/03/17 23:16 96.7 86 105/70 (82) 98 02/03/17 20:00 97.0 85 20 119/71 (87) 99 02/03/17 15:47 100 Nasal Cannula 2.00 02/03/17 14:50 64 16 112/86 (95) 100 Room Air 02/03/17 14:37 120 20 112/86 (95) 100 Nasal Cannula 2.00 02/03/17 13:03 121 17 106/75 (85) 100 Nasal Cannula 2.00 02/03/17 13:03 100 Nasal Cannula 2.00 02/03/17 13:01 97.6 122 18 106/75 (85) 98 -: 02/04/17 0440 02/04/17 0440 Physical Exam General Appearance: Well Developed Pulmonary Resp Exam: Decreased Bases Cardiology CV Exam: Irregular Gastrointestinal/Abdomen GI Exam: Soft, Non-Tender Extremeties Extremities Exam: Trace Edema Neurologic Neuro Exam: Alert, Awake, Oriented Assessment/Plan Problem List: (1) ESRD (end stage renal disease) ICD Codes: N18.6 - End stage renal disease Status: Acute Plan: Patient signed AMA and wanted to go to hospice, now changed his mind he will continue with hemodialysis called hemodialysis ctr and updated them at [place] today and then Thursday (2) Pulmonary edema ICD Codes: J81.1 - Chronic pulmonary edema Status: Acute Plan: Patient changed his mind about hospice Problem Qualifiers (1) Pulmonary edema: Qualified Codes: J81.0 - Acute pulmonary edema Ara Suarez MD Feb 04, 2017 13:03
[2017-02-04 13:04] LABS: HEMOGLOBIN A1a 1.3 %; HEMOGLOBIN A1b 2.5 %; HEMOGLOBIN Ao 80.8 %; HEMOGLOBIN LA1C 2.5 %; HEMOGLOBIN P3 7.1 %
--- NOTE | 2017-02-04 15:53 | PD.CONS ---
Consult Service Palliative Care Consult Requested By MD Aristeo. Primary Care Physician Unknown Reason for Consultation a. To assist with evaluation and management of symptoms including: Debility. b. To assist medical decision maker(s) with: better understanding of current medical conditions; weighing benefits/burdens of medical treatment options; making medical treatment decisions. . HPI History of Present Illness Mr. vann is a 66-year-old male with a medical history significant for end- stage renal disease -on hemodialysis for the past 6 years, significant cardiac history to include cardiac stents x 5, pacer/AICD and 2 prior MIs, diabetes mellitus, liver disease. Patient presented to ED on 02/03/17 via EMS for evaluation of shortness of breath. Patient reported progressive shortness of breath for the past month. Patient with history of hemodialysis noncompliance. Upon ED arrival, heart rate in the 120s. Patient was given Cardizem and became hypotensive with systolic blood pressure in the 60s. He was given a bolus of normal saline with good effect. ED laboratory workup revealing WBC 9.9 , Hgb 11.7, platelet count 169. Sodium 132, potassium 6.1, BUN/creatinine 58/ 5.57. BNP 2901. Chest x-ray revealing pulmonary edema. Patient was admitted for further evaluation and management. Nephrology, Dr. Suarez consulted on 02/03/17. As per medical records, patient signed AMA and verbalized wishing to discontinue hemodialysis and enrolling into hospice services. Patient previously only does hospice for an undetermined amount of time in 2010. On 02/04/17, patient verbalized wishing to continue hemodialysis. Further verbalizing not being ready for hospice. Patient was reevaluated by nephrology, Dr. Suarez. Palliative care has been consulted for clarifications of goals of care. Patient was seen during dialysis treatment. He was resting in bed in no acute distress. Endorsing abdominal pain secondary to umbilical hernia, mild shortness of breath and physical exertion. Denies nausea/vomiting. Patient alert and oriented x self, place and situation. verbal, able to communicate needs. Patient with a fair understanding of his complicated medical issues. He tells me that he was considering hospice services as he is "tired" of hemodialysis. Patient has been on hemodialysis for the past 5-6 years. He was residing independently prior to these acute hospitalization. Reporting progressive physical decline and symptom burden to include shortness of breath, fatigue and edema. Patient tells me that he will like his umbilical hernia repair. Reviewed with patient significant cardiac history, patient not likely a surgical candidate for hernia repair/anesthesia given the above. Patient tells me that he has been told this previously but he will like to follow-up with a different physician. Patient tells me that he is not ready for hospice at this time. Reviewed risks, benefits and limitations of CPR given his ESRD and significant cardiac history. Patient tells me that he has previously signed a comminuted DNR while at [facility]. Patient electing no code during this hospitalization. Obtained daughters information with contact numbers. Telephone conversation with patient's daughter Juhi Jeff and patient's sister Daria Virgen. Medical update provided. They both share concerns of patient's clinical condition and ability to return home for independent living. Family in favor of comfort directed care with hospice, however, wishing to follow patient's wishes. Reviewed that if patient elects to continue hemodialysis, he will likely require long-term placement given increased needs. Patient and family receptive to palliative care follow up on Thursday02/06/17 in the a.m. for further goals of care conversation. Case discussed with Lana family preservation caseworker. . Function/Cognitive Trajectory Patient residing independently prior to this hospitalization. Endorsing progressive decline, physical deconditioning and increased symptom burden such as shortness of breath and edema. Ambulating with no assistive device. Oxygen at home, however, noncompliant. . Review of Systems Constitutional: COMPLAINS OF: Fatigue, Pain, Generalized weakness, DENIES: Fever, Change in appetite, Night Sweats Endocrine: DENIES: Heat/cold intolerance Eyes: DENIES: Eye inflammation, Eye pain Ears, nose, mouth, throat: COMPLAINS OF: Hearing loss, DENIES: Nasal discharge , Oral lesions, Ear Pain, Running Nose Respiratory: COMPLAINS OF: Apneas, Shortness of breath, DENIES: Cough Cardiovascular: COMPLAINS OF: Dyspnea on Exertion, Lower Extremity Edema, DENIES: Chest pain Gastrointestinal: DENIES: Black stools, Diarrhea, Nausea, Vomiting Genitourinary: COMPLAINS OF: Urinary incontinence Musculoskeletal: DENIES: Joint pain, Stiffness, Decreased range of motion Integumentary: DENIES: Abnormal pigmentation, Rash Hematologic/Lymphatics: COMPLAINS OF: Bruising Immunologic/Allergic: DENIES: Eczema Neurologic: COMPLAINS OF: Poor Balance, DENIES: Headache, Seizures Psychiatric: COMPLAINS OF: Anxiety, Depression, DENIES: Agitation Past Family Social History Coded Allergies: penicillin G (Verified Allergy, Severe, "WENT CRAZY" - NOT SURE OF REACTION, 02/03/17) Past Medical History Anemia Chronic anxiety Chronic depression History of cardiac catheterization history of 5 stents History of cardiovascular disease Diabetes mellitus History of end-stage renal disease on hemodialysis for the past 5-6 years History of pulmonary edema history of myocardial infarction x 2 . Past Surgical History Inguinal hernia repair Cholecystectomy AICD Left upper extremity AV fistula Cardiac stents 5 Multiple eye surgeries History of right-sided port . Reported Medications Carvedilol 6.25 Mg Tab 6.25 Mg PO BID [facility] (Hydrocodone-Acetaminophen) 5 Mg-325 Mg Tab 1 Tab PO BID PRN Ativan (Lorazepam) 2 Mg Tab 3 Mg PO DAILY PRN Protonix (Pantoprazole Sodium) 40 Mg Tab 1 Tab PO DAILY . Current Medications Medications (Trade) Dose Ordered Sig/Ayla Route Start Time Stop Time Status Last Admin Sodium Chloride 1,000 ml @ 0 mls/hr Q0M PRN OTHER 02/03/17 15:09 02/03/17 16:40 (Heparin Inj) 8,000 units UNSCH PRN IV FLUSH 02/03/17 15:15 Sodium Chloride 1,000 ml @ 200 mls/hr Q5H PRN IV 02/03/17 15:09 Sodium Chloride 1,000 ml @ 0 mls/hr Q0M PRN OTHER 02/03/17 15:09 (Mannitol Inj) 12.5 gm UNSCH PRN IV 02/03/17 15:15 02/03/17 16:40 Albumin Human 100 ml @ 60 mls/hr UNSCH PRN IV 02/03/17 15:15 (NS Flush) 5 ml UNSCH PRN IV FLUSH 02/03/17 15:15 (Zofran Inj) 4 mg UNSCH PRN IV PUSH 02/03/17 15:15 (Tylenol) 650 mg UNSCH PRN PO 02/03/17 15:15 (Benadryl) 25 mg UNSCH PRN PO 02/03/17 15:15 (Nitrostat Sl) 0.4 mg UNSCH PRN SL 02/03/17 15:15 (Catapres) 0.1 mg UNSCH PRN PO 02/03/17 15:15 (Epogen Inj) 4,000 units UNSCH PRN IV PUSH 02/03/17 15:15 (Gelfoam 12 Mm/7 Mm Top) 1 foam UNSCH PRN TOP 02/03/17 15:15 02/03/17 16:40 (NS Flush) 2 ml UNSCH PRN IV FLUSH 02/03/17 15:15 (NS Flush) 2 ml BID IV FLUSH 02/03/17 21:00 02/04/17 09:00 (Tylenol) 650 mg Q4H PRN PO 02/03/17 15:15 (Zofran Inj) 4 mg Q6H PRN IVP 02/03/17 15:15 (Compazine Supp) 25 mg Q12H PRN RECTAL 02/03/17 15:15 (Tylenol) 650 mg Q6H PRN PO 02/03/17 15:15 (Percocet 5-325 Mg) 1 tab Q6H PRN PO 02/03/17 15:15 (Percocet 10-325 Mg) 1 tab Q6H PRN PO 02/03/17 15:15 02/04/17 09:13 (Morphine Inj) 2 mg Q3H PRN IV PUSH 02/03/17 15:15 (Morphine Inj) 4 mg Q3H PRN IV PUSH 02/03/17 15:15 (Narcan Inj) 0.4 mg UNSCH PRN IV PUSH 02/03/17 15:15 (Althea-Colace) 1 tab BID PO 02/03/17 21:00 (Milk Of Magnesia Liq) 30 ml Q12H PRN PO 02/03/17 15:15 (Senokot) 17.2 mg Q12H PRN PO 02/03/17 15:15 (Dulcolax Supp) 10 mg DAILY PRN RECTAL 02/03/17 15:15 (Lactulose Liq) 30 ml DAILY PRN PO 02/03/17 15:15 (Coreg) 6.25 mg BID PO 02/03/17 21:00 (Protonix) 40 mg DAILY PO 02/04/17 09:00 02/04/17 09:13 (Duoneb Neb) 1 ampule Q4HR NEB PRN NEB 02/03/17 15:30 (D50w (Vial) Inj) 50 ml UNSCH PRN IV PUSH 02/03/17 15:45 (Glucagon Inj) 1 mg UNSCH PRN OTHER 02/03/17 15:45 (NovoLOG SUPPLEMENTAL SCALE) 1 ACHS SLIDING SCALE SQ 02/03/17 17:00 (Ativan) 3 mg Q6H PRN PO 02/04/17 12:15 02/04/17 12:23 Family History History of coronary artery disease. Son secondary to EtOH use and abuse. . Substance Use Tobacco: Denies. Alcohol: Denies. Prescription med abuse: Denies. Illicits: Denies. . Psychosocial History Patient originally from [place]. Lived in [place] for approximately 20 years. Moved to [place] 10 years ago. Patient is , has 3 children. 2 daughters Juhi and Aneta. Son 2 days ago secondary to EtOH use and abuse. 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 . Spiritual/Cultural Factors No congregation affiliation. . Living Will: Never completed Health Care Surrogate: Never completed Health Care Surrogate(s): Patient reports that no advance directives have been completed. Patient is . As per [place] statute, healthcare proxy decision making falls to the majority of patient's children for which he has 2. Patient declined completion of designation of healthcare surrogate during this visit. . Today's verbally stated goals: No code. DNR/DNI. Continue conservative management to include hemodialysis. . Family/friends goals: Family supportive of patient's wishes. . Ethical and Legal Issues No ethical legal issues have been identified this time. . Physical Exam Vital Signs Date Time Temp Pulse Resp B/P (MAP) Pulse Ox O2 Delivery O2 Flow Rate FiO2 02/04/17 12:00 98 Nasal Cannula 2.00 02/04/17 12:00 97.0 102 18 111/80 (90) 99 02/04/17 10:13 18 02/04/17 08:19 97.4 97 17 110/70 (83) 94 02/04/17 04:00 96.7 93 20 99/64 (76) 94 02/03/17 23:16 96.7 86 105/70 (82) 98 02/03/17 20:00 97.0 85 20 119/71 (87) 99 02/03/17 15:47 100 Nasal Cannula 2.00 Exam CONSTITUTIONAL/GENERAL: This is an elderly patient resting bed in no acute distress. Patient appears older than stated age. TUBES/LINES/DRAINS: PIV. Nasal cannula. SKIN: No jaundice, rashes, or lesions. Ecchymoses on upper extremities. No wounds seen anteriorly. Skin temperature appropriate. Stasis dermatitis to bilateral lower extremities. Dry skin. HEAD: Atraumatic. Normocephalic. EYES: Pupils equal and round and reactive. Extraocular motions intact. No scleral icterus. No injection or drainage ENT: Hearing grossly normal. Nose without bleeding or purulent drainage. Moist oral mucosa. NECK: Trachea midline. Supple, nontender. CARDIOVASCULAR: Regular rate and rhythm. Peripheral pulses symmetric. Trace edema to bilateral lower extremities. RESPIRATORY/CHEST: Symmetric, unlabored respirations. Coarse breath sounds anteriorly. GASTROINTESTINAL: Abdomen soft, non-tender, nondistended. Umbilical hernia. Bowel sounds present. GENITOURINARY: Without palpable bladder distension. MUSCULOSKELETAL: Extremities without clubbing, cyanosis. No mottling or clubbing. NEUROLOGICAL: Awake and alert. Motor and sensory grossly within normal limits. Follows commands. Moves all extremities. PSYCHIATRIC: Calm. pleasant and cooperative. . Diagnostic Tests Laboratory Laboratory Tests Test 02/03/17 13:20 02/04/17 04:40 White Blood Count 9.9 TH/MM3 (4.0-11.0) 8.0 TH/MM3 (4.0-11.0) Red Blood Count 3.79 MIL/MM3 (4.50-5.90) 3.61 MIL/MM3 (4.50-5.90) Hemoglobin 11.7 GM/DL (13.0-17.0) 10.9 GM/DL (13.0-17.0) Hematocrit 35.4 % (39.0-51.0) 33.3 % (39.0-51.0) Mean Corpuscular Volume 93.3 FL (80.0-100.0) 92.2 FL (80.0-100.0) Mean Corpuscular Hemoglobin 30.8 PG (27.0-34.0) 30.2 PG (27.0-34.0) Mean Corpuscular Hemoglobin Concent 33.0 % (32.0-36.0) 32.8 % (32.0-36.0) Red Cell Distribution Width 16.4 % (11.6-17.2) 16.4 % (11.6-17.2) Platelet Count 169 TH/MM3 (150-450) 133 TH/MM3 (150-450) Mean Platelet Volume 9.3 FL (7.0-11.0) 9.5 FL (7.0-11.0) Neutrophils (%) (Auto) 77.9 % (16.0-70.0) 67.7 % (16.0-70.0) Lymphocytes (%) (Auto) 8.9 % (9.0-44.0) 14.3 % (9.0-44.0) Monocytes (%) (Auto) 9.0 % (0.0-8.0) 13.1 % (0.0-8.0) Eosinophils (%) (Auto) 3.0 % (0.0-4.0) 3.5 % (0.0-4.0) Basophils (%) (Auto) 1.2 % (0.0-2.0) 1.4 % (0.0-2.0) Neutrophils # (Auto) 7.7 TH/MM3 (1.8-7.7) 5.4 TH/MM3 (1.8-7.7) Lymphocytes # (Auto) 0.9 TH/MM3 (1.0-4.8) 1.1 TH/MM3 (1.0-4.8) Monocytes # (Auto) 0.9 TH/MM3 (0-0.9) 1.0 TH/MM3 (0-0.9) Eosinophils # (Auto) 0.3 TH/MM3 (0-0.4) 0.3 TH/MM3 (0-0.4) Basophils # (Auto) 0.1 TH/MM3 (0-0.2) 0.1 TH/MM3 (0-0.2) CBC Comment DIFF FINAL DIFF FINAL Differential Comment Prothrombin Time 13.3 SEC (9.8-11.6) Prothromb Time International Ratio 1.2 RATIO Activated Partial Thromboplast Time 28.7 SEC (24.3-30.1) Blood Urea Nitrogen 58 MG/DL (7-18) 52 MG/DL (7-18) Creatinine 5.87 MG/DL (0.60-1.30) 5.56 MG/DL (0.60-1.30) Random Glucose 197 MG/DL (74-106) 136 MG/DL (74-106) Total Protein 8.4 GM/DL (6.4-8.2) 7.7 GM/DL (6.4-8.2) Albumin 3.4 GM/DL (3.4-5.0) 3.6 GM/DL (3.4-5.0) Calcium Level 9.6 MG/DL (8.5-10.1) 8.9 MG/DL (8.5-10.1) Magnesium Level 1.8 MG/DL (1.5-2.5) 1.7 MG/DL (1.5-2.5) Alkaline Phosphatase 71 U/L (45-117) 64 U/L (45-117) Aspartate Amino Transf (AST/SGOT) 25 U/L (15-37) 22 U/L (15-37) Alanine Aminotransferase (ALT/SGPT) 21 U/L (12-78) 25 U/L (12-78) Total Bilirubin 0.8 MG/DL (0.2-1.0) 0.8 MG/DL (0.2-1.0) Sodium Level 132 MEQ/L (136-145) 138 MEQ/L (136-145) Potassium Level 6.1 MEQ/L (3.5-5.1) 5.4 MEQ/L (3.5-5.1) Chloride Level 100 MEQ/L (98-107) 102 MEQ/L (98-107) Carbon Dioxide Level 24.1 MEQ/L (21.0-32.0) 24.6 MEQ/L (21.0-32.0) Anion Gap 8 MEQ/L (5-15) 11 MEQ/L (5-15) Estimat Glomerular Filtration Rate 10 ML/MIN (>89) 10 ML/MIN (>89) Total Creatine Kinase 48 U/L (39-308) 32 U/L (39-308) Troponin I 0.04 NG/ML (0.02-0.05) 0.03 NG/ML (0.02-0.05) B-Type Natriuretic Peptide 2901 PG/ML (0-100) Phosphorus Level 4.4 MG/DL (2.5-4.9) Free Thyroxine 1.05 NG/DL (0.76-1.46) Thyroid Stimulating Hormone 3rd Gen 3.060 uIU/ML (0.358-3.740) Result Diagram: 02/04/17 0440 02/04/17 0440 Imaging Last Impressions Chest X-Ray 02/03/17 1301 Signed Impressions: Service Date/Time: Friday, February 03, 2017 12:17 - CONCLUSION: Intra-alveolar pulmonary edema. Chico Ray Jr., MD Patient/Family Conference Present at Family Conference: Daughter Juhi and patient's sister Daria Virgen. Family Conference Time (mins): 42 Family Conference Location: Telephone Issues Discussed: * Palliative care role, purpose, approach * Additional medical, psychosocial, and spiritual history * Patients general health, functional status, and cognitive changes in the months leading up to the current hospitalization * Patient/family understanding of the current medical problems -end-stage renal disease, significant cardiac history, CHF * Patient/family understanding of prognosis -poor prognosis for a prolonged survival * Patients goals of care as best understood from advance directives and/or conversations and/or values * Current medical treatment options and benefits/burdens of those options * Likely scenarios comparing ongoing aggressive care with a transition to comfort measures only * Questions answered to the best of my ability * Palliative care contact information provided * Hospice philosophy and benefits * Risks, benefits and limitations of CPR, intubation and mechanical ventilation . Assessment and Plan Disease Oriented Problem List: (1) ESRD (end stage renal disease) (2) Congestive heart failure (3) Cardiomyopathy (4) Pulmonary edema (5) Physical deconditioning (6) Coronary artery disease Symptom Scale: (1) Dyspnea 0-10 Scale: Unable to quantify Comment: Secondary to CHF, end-stage renal disease. (2) Pain 0-10 Scale: 5 Comment: Secondary to umbilical hernia. Pertinent Non-Medical Issues Psychosocial: Patient originally from [place]. Lived in [place] for approximately 20 years. Moved to [place] 10 years ago. Patient is , has 3 children. 2 daughters Juhi and Aneta. Son 2 days ago secondary to EtOH use and abuse. 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 Spiritual: No congregation affiliation. Legal: No advance directives completed. Ethical issues impacting care: No ethical issues identified. . Important Contacts Daughter Juhi Jim Daughter Aneta Darron -pending contact number Patient's sister Daria Virgen . Prognosis Mr. vann is a 66-year-old male with a medical history significant for end- stage renal disease -on hemodialysis for the past 6 years, significant cardiac history to include cardiac stents x 5, pacer/AICD and 2 prior MIs, diabetes mellitus, liver disease. Patient presented to ED on 02/03/17 via EMS for evaluation of shortness of breath. Patient admitted secondary to CHF, end- stage renal disease requiring hemodialysis. Patient's overall prognosis is fair poor for a prolonged survival given end-stage renal disease, non- compliance with hemodialysis, significant cardiac history, multiple other comorbidities, progressive decline, profound physical deconditioning. Patient appears hospice appropriate should he elects to comfort directed care. . Code Status: No Code Plan * CODE STATUS: No code. DNR/DNI. Patient reported that he has previously signed a community DNR while at [facility]. Patient's daughter Juhi and sister Daria in agreement with no CODE STATUS. * HEALTHCARE DECISION-MAKING: Patient participating in medical decision-making. He appears to have a fair understanding of his complicated clinical condition and overall poor prognosis, however, unclear if patient fully understands the risks versus burdens of treatment options. No advance directives completed. Patient is . As per [place] statute, healthcare proxy decision-making falls to the majority of patient's children for which he has 2. Palliative care recommends shared decision-making with daughters Juhi and Aneta given the above. * GOALS OF CARE: No code. DNR/DNI. Patient electing to continue conservative management short of no code to include hemodialysis. Patient verbalized wishing to pursue umbilical hernia repair, he feels that he is not ready for hospice as of yet. Patient and daughters are receptive to palliative care follow-up this Thursday02/06/17 in AM for further goals of care conversation. * SYMPTOMS: = Dyspnea: Secondary to CHF, end-stage renal disease. Currently tolerating O2 via nasal cannula. Receiving hemodialysis. Nephrology following. =Pain: Secondary to umbilical hernia. Percocet available as needed. Has required 2 doses in the past to 4 hours. Morphine 2-4 mg IV available as needed. Palliative care recommends discontinuation of morphine in the setting of ESRD given high risk for neuro toxicity. = Bowel: Exacerbated by opioid use and bedrest. Senokot, milk of magnesia, lactulose and o'clock suppository available as needed. * Case discussed with family preservation caseworker Lana. Family shared concerns of patient discharge, they feel that patient is not safe to return to independent living given higher level of needs. If patient elects to continue hemodialysis, he will likely require long-term placement. * Palliative care contact information has been provided to patient and family. * Palliative care will continue to follow-up for further clarifications of goals of care as patient's clinical course continues to evolve. . Time Spent Total Floor Time (mins): 77 (Total time to include review and summarization of available medical records to include prior ED visits, physical exam, goals of care conversation with patient, telephone conversation with daughter Juhi, separate telephone conversation with sister Aneta, case discussion with family preservation caseworker.) >50% Counseling/Coord of Care: Yes Thank you for the opportunity to participate in the care of Mr. Vann. Attestation To help prompt me to consider important information that might be impacting today's encounter and assessment, information from prior notes written by myself or my colleagues may have been "brought forward" into today's note. My signature on this note, however, is an attestation that I personally performed the exam, history, and/or decision-making noted today, and, unless otherwise indicated, the interactions with patient, family, and staff as well as the review of records all occurred today. I also attest that the listed assessment and stated plan reflect my best clinical judgment today based on the combination of historical information, prior notes, and today's exam/ interactions. When time spent is documented, it refers only to time spent today by the signer, or if indicated, combined time spent today by collaborating physician/nurse practitioner. Lindsay Brock Feb 04, 2017 15:52
[2017-02-04 20:00] VITALS: BP 106/52; PULSE 117; RESP 16; TEMP 97.6; O2SAT 92
[2017-02-05 00:36] VITALS: BP 113/85; PULSE 116; RESP 18; TEMP 97.3; O2SAT 97
[2017-02-05 05:18] LABS: AUTOMATED NEUTROPHIL # 9.8 TH/MM3 (1.8-7.7); BASOPHIL # 0.1 TH/MM3 (0-0.2); BASOPHIL % 1.2 % (0.0-2.0); EOSINOPHIL # 0.4 TH/MM3 (0-0.4); EOSINOPHIL % 3.2 % (0.0-4.0); HEMATOCRIT 35.4 % (39.0-51.0); HEMO FLAGS DIFF FINAL; LYMPH % 6.2 % (9.0-44.0); LYMPHOCYTE # 0.8 TH/MM3 (1.0-4.8); MEAN CELL VOLUME 92.4 FL (80.0-100.0); MEAN CORPUSCULAR HEMOGLOBIN 30.4 PG (27.0-34.0); MEAN CORPUSCULAR HGB CONC 32.9 % (32.0-36.0); MONO % 9.7 % (0.0-8.0); NEUT % 79.7 % (16.0-70.0); PLATELET COUNT 146 TH/MM3 (150-450); RED BLOOD COUNT 3.83 MIL/MM3 (4.50-5.90); RED CELL DISTRIBUTION WIDTH 16.6 % (11.6-17.2); WHITE BLOOD COUNT 12.2 TH/MM3 (4.0-11.0)
[2017-02-05 05:48] LABS: ANION GAP 11 MEQ/L (5-15); AST (GOT) 25 U/L (15-37); BICARBONATE 27.1 MEQ/L (21.0-32.0); BLOOD UREA NITROGEN 46 MG/DL (7-18); CHLORIDE 99 MEQ/L (98-107); GLOMERULAR FILTRATION RATE 11 ML/MIN (>89); POTASSIUM 4.8 MEQ/L (3.5-5.1); SODIUM (NA) 137 MEQ/L (136-145)
[2017-02-05 05:58] LABS: ALKALINE PHOSPHATASE 73 U/L (45-117); ALT (GPT) 24 U/L (12-78); MAGNESIUM 1.7 MG/DL (1.5-2.5); TOTAL BILIRUBIN ADULT 0.8 MG/DL (0.2-1.0)
[2017-02-05 06:32] VITALS: BP 129/90
[2017-02-05] MEDS: LORazepam 1 MG TAB PO PRN ×3 (06:33→21:11)
[2017-02-05 08:00] VITALS: BP 100/81; PULSE 121; RESP 21; TEMP 97; O2SAT 91
[2017-02-05] MEDS: INSULIN ASPART SUPPLEMENTAL SCALE SQ SCH ×4 (08:00→21:00)
[2017-02-05] MEDS: oxyCODONE/ACETAMINOPHEN 10 MG/325 MG TAB PO PRN ×2 (08:02→21:11)
[2017-02-05] MEDS: PANTOPRAZOLE SOD 40 MG DELAYED RELEASE TAB PO SCH (08:02)
[2017-02-05] MEDS: CARVEDILOL 6.25 MG TAB PO SCH ×2 (08:02→08:05)
[2017-02-05] MEDS: DOCUSATE SODIUM 50 MG/SENNA 8.6 MG TAB PO SCH ×2 (08:02→21:10)
[2017-02-05] MEDS: SODIUM CHLORIDE 0.9% FLUSH 10 ML FLUSH IV FLUSH SCH ×2 (08:03→21:10)
--- NOTE | 2017-02-05 08:25 | HHI.PR ---
Subjective Remarks Pt requesting protonix. states he has chronic pain, not new. denies any nausea or vomiting. Breathing is improved since dialysis but pt states "after I eat, I' ll get worst again and when I walk too" Objective Vitals Vital Signs Date Time Temp Pulse Resp B/P (MAP) Pulse Ox O2 Delivery O2 Flow Rate FiO2 02/05/17 06:32 129/90 (103) 02/05/17 00:36 97.3 116 18 113/85 (94) 97 02/04/17 20:00 97.6 117 16 106/52 (70) 92 02/04/17 12:00 98 Nasal Cannula 2.00 02/04/17 12:00 97.0 102 18 111/80 (90) 99 02/04/17 10:13 18 02/04/17 08:19 97.4 97 17 110/70 (83) 94 I/O 02/04/17 02/04/17 02/04/17 02/05/17 02/05/17 02/05/17 07:00 15:00 23:00 07:00 15:00 23:00 Intake Total 120 ml 600 ml Output Total 2000 ml Balance 120 ml -1400 ml Intake Oral 120 ml 600 ml Output Hemodialysis 2000 ml # Voids 0 0 # Bowel Movements 0 Result Diagram: 02/05/17 0405 02/05/17 0405 Imaging Last Impressions Chest X-Ray 02/03/17 1301 Signed Impressions: Service Date/Time: Friday, February 03, 2017 12:17 - CONCLUSION: Intra-alveolar pulmonary edema. Chico Ray Jr., MD Objective Remarks GENERAL: Awake and alert, preparing to eat breakfast EYES: Extraocular muscles intact NECK: Trachea midline. CARDIOVASCULAR: Regular rate and rhythm. RESPIRATORY: No accessory muscle use. appear clear to auscultation however somewhat decrease at the base. GASTROINTESTINAL: Abdomen soft, non-tender, nondistended. MUSCULOSKELETAL: Extremities without edema. No obvious deformities. NEUROLOGICAL: Awake and alert. No obvious cranial nerve deficits. Normal speech. Procedures Hemodialysis A/P Problem List: (1) Noncompliance with renal dialysis ICD Code: Z91.15 - Patient's noncompliance with renal dialysis (2) Fluid overload ICD Code: E87.70 - Fluid overload, unspecified (3) ESRD (end stage renal disease) ICD Code: N18.6 - End stage renal disease Status: Acute (4) Pulmonary edema ICD Code: J81.1 - Chronic pulmonary edema Status: Acute (5) New onset atrial flutter ICD Code: I48.92 - Unspecified atrial flutter Status: Acute Assessment and Plan End-stage renal disease with noncompliance with fluid intake and dialysis Nephrology following. Palliative care following. Pt not yet ready for hospice. s/p HD yesterday and will having HD tomorrow. Hyperkalemia resolved post HD. nephrology following. Pulmonary edema due to noncompliance. Caution IVFs. none at this time. Hypertension/A. fib/flutter by history continue on Coreg once blood pressure stable Noncompliance Hypotension -resolved Anxiety continue on Ativan Physical therapy and occupational therapy to eval and treat Case management consult for d/c planning. Palliative care consult it appears patient still wants procedures and dialysis which does not fit with the auspices of hospice Discharge Planning scheduled for HD tomorrow. Meeting w palliative care tomorrow as well. Problem Qualifiers (1) Pulmonary edema: Qualified Codes: J81.0 - Acute pulmonary edema Gabby Priest MD Feb 05, 2017 08:25
[2017-02-05 10:50] LABS: HEMOGLOBIN A1a 1.5 %; HEMOGLOBIN A1b 2.3 %; HEMOGLOBIN Ao 81.2 %; HEMOGLOBIN LA1C 2.3 %; HEMOGLOBIN P3 6.9 %
[2017-02-05 12:00] VITALS: BP 113/79; PULSE 118; RESP 16; TEMP 97.2; O2SAT 97
--- NOTE | 2017-02-05 15:21 | HHI.NPPN ---
Subjective History of Present Illness 66 year old male with CHF/AICD , ESRD Additional Remarks feels better but tired Objective Data Data Vital Signs Date Time Temp Pulse Resp B/P (MAP) Pulse Ox O2 Delivery O2 Flow Rate FiO2 02/05/17 12:00 97.2 118 16 113/79 (90) 97 02/05/17 08:00 97.0 121 21 100/81 (87) 91 02/05/17 06:32 129/90 (103) 02/05/17 00:36 97.3 116 18 113/85 (94) 97 02/04/17 20:00 97.6 117 16 106/52 (70) 92 -: 02/05/17 0405 02/05/17 0405 Physical Exam General Appearance: Well Developed Pulmonary Resp Exam: Crackles, Decreased Bases Cardiology CV Exam: Irregular Gastrointestinal/Abdomen GI Exam: Soft, Non-Tender Extremeties Extremities Exam: Trace Edema Neurologic Neuro Exam: Alert, Awake, Oriented Assessment/Plan Problem List: (1) ESRD (end stage renal disease) ICD Codes: N18.6 - End stage renal disease Status: Acute Plan: Patient had hemodialysis yesterday 2 L off next on Thursday then MWF follow with Dr. Amado patient not ready for hospice (2) Pulmonary edema ICD Codes: J81.1 - Chronic pulmonary edema Status: Acute Plan: Patient changed his mind about hospice Problem Qualifiers (1) Pulmonary edema: Qualified Codes: J81.0 - Acute pulmonary edema Ara Suarez MD Feb 05, 2017 15:21
[2017-02-05 16:00] VITALS: BP 96/62; PULSE 105; RESP 20; TEMP 97.6; O2SAT 91
--- NOTE | 2017-02-05 18:07 | ECHRPT ---
Indication: CVA/TIA CONCLUSIONS The left ventricular systolic function is severely reduced with an estimated ejection fraction in th e range of 25-30%. Mild concentric left ventricular hypertrophy. Normal left ventricular size. There is moderate tricuspid regurgitation. The estimated pulmonary arterial pressure is 53 mmHg. Mild aortic valve regurgitation. Diffuse calcification of the aortic valve. Moderate to severe aortic valve stenosis. Aortic valve area is 0.70 cm. Aortic valve mean gradient is 11.7 mmHg. Moderate mitral valve regurgitation. Moderate mitral annular calcification. A small left sided pleural effusion is noted. There is a small pericardial effusion present. BP: 99 / 64 HR: 93 Rhythm: Atrial fibrillation MEASUREMENTS (Male / Female) Normal Values Technical Quality:Good 2D ECHO LV Diastolic Diameter PLAX 4.6 cm 4.2 - 5.9 / 3.9 - 5.3 cm LV Systolic Diameter PLAX 4.1 cm IVS Diastolic Thickness 1.0 cm 0.6 - 1.0 / 0.6 - 0.9 cm LVPW Diastolic Thickness 1.2 cm 0.6 - 1.0 / 0.6 - 0.9 cm LV Relative Wall Thickness 0.5 LVOT Diameter 1.8 cm M-MODE Aortic Root Diameter MM 2.2 cm LA Systolic Diameter MM 4.2 cm LA Ao Ratio MM 1.9 AV Cusp Separation MM 1.7 cm DOPPLER AV Peak Velocity 212.4 cm/s AV Peak Gradient 18.0 mmHg AV Mean Gradient 11.7 mmHg AV Velocity Time Integral 32.7 cm AI Peak Velocity 391.0 cm/s AI Peak Gradient 61.2 mmHg AI Pressure Half Time 348.0 ms LVOT Peak Velocity 50.3 cm/s LVOT Peak Gradient 1.0 mmHg AV Area Cont Eq pk 0.6 cm MR Peak Velocity 434.5 cm/s MR Peak Gradient 75.5 mmHg TR Peak Velocity 328.0 cm/s TR Peak Gradient 43.0 mmHg Right Atrial Pressure 10.0 mmHg Pulmonary Artery Systolic Pressu 53.0 mmHg Right Ventricular Systolic Press 53.0 mmHg FINDINGS LEFT VENTRICLE The left ventricular systolic function is severely reduced with an estimated ejection fraction in th e range of 25-30%. Mild concentric left ventricular hypertrophy. Normal left ventricular size. RIGHT VENTRICLE Normal right ventricular size and systolic function. LEFT ATRIUM The left atrial size is normal. RIGHT ATRIUM The right atrial size is normal. ATRIAL SEPTUM Normal atrial septal thickness without atrial level shunting by limited color doppler interrogation. AORTA The aortic root and proximal ascending aorta are normal in size on limited imaging. MITRAL VALVE Moderate mitral valve regurgitation. Moderate mitral annular calcification. AORTIC VALVE Mild aortic valve regurgitation. Diffuse calcification of the aortic valve. Mild to moderate aortic valve stenosis. Aortic valve area is 0.70 cm. Aortic valve mean gradient is 11.7 mmHg. TRICUSPID VALVE There is moderate tricuspid regurgitation. The estimated pulmonary arterial pressure is 53 mmHg. PULMONARY VALVE No pulmonary valve regurgitation or stenosis. VESSELS The inferior vena cava is normal in size. PERICARDIUM A small left sided pleural effusion is noted. There is a small pericardial effusion present. Hever Pitt MD (Electronically Signed) Final Date:05 February 2017 18:06
[2017-02-05 20:00] VITALS: BP 108/81; PULSE 103; RESP 19; TEMP 97.8; O2SAT 100
[2017-02-06] VITALS: BP 106/79; PULSE 83; RESP 19; TEMP 97; O2SAT 99
[2017-02-06] MEDS: oxyCODONE/ACETAMINOPHEN 10 MG/325 MG TAB PO PRN ×2 (03:43→12:27)
[2017-02-06] MEDS: LORazepam 1 MG TAB PO PRN (03:44)
[2017-02-06 06:08] LABS: AUTOMATED NEUTROPHIL # 5.9 TH/MM3 (1.8-7.7); BASOPHIL # 0.1 TH/MM3 (0-0.2); BASOPHIL % 1.3 % (0.0-2.0); EOSINOPHIL # 0.3 TH/MM3 (0-0.4); EOSINOPHIL % 3.9 % (0.0-4.0); HEMATOCRIT 35.7 % (39.0-51.0); HEMO FLAGS DIFF FINAL; MEAN CELL VOLUME 94.1 FL (80.0-100.0); MEAN CORPUSCULAR HEMOGLOBIN 30.4 PG (27.0-34.0); MEAN CORPUSCULAR HGB CONC 32.4 % (32.0-36.0); MONO % 12.3 % (0.0-8.0); NEUT % 70.5 % (16.0-70.0); PLATELET COUNT 131 TH/MM3 (150-450); RED BLOOD COUNT 3.79 MIL/MM3 (4.50-5.90); RED CELL DISTRIBUTION WIDTH 16.5 % (11.6-17.2); WHITE BLOOD COUNT 8.3 TH/MM3 (4.0-11.0)
[2017-02-06 06:37] LABS: BICARBONATE 24.4 MEQ/L (21.0-32.0); POTASSIUM 5.2 MEQ/L (3.5-5.1)
[2017-02-06 08:00] VITALS: BP 106/83; PULSE 117; RESP 18; TEMP 96.5; O2SAT 96
[2017-02-06] MEDS: INSULIN ASPART SUPPLEMENTAL SCALE SQ SCH ×4 (08:00→21:00)
[2017-02-06] MEDS: SODIUM CHLORIDE 0.9% FLUSH 10 ML FLUSH IV FLUSH SCH ×2 (09:00→21:14)
[2017-02-06] MEDS: PANTOPRAZOLE SOD 40 MG DELAYED RELEASE TAB PO SCH (09:00)
[2017-02-06] MEDS: DOCUSATE SODIUM 50 MG/SENNA 8.6 MG TAB PO SCH ×2 (09:00→21:00)
[2017-02-06] MEDS: CARVEDILOL 6.25 MG TAB PO SCH ×2 (09:00→21:00)
[2017-02-06] MEDS ORDERED: MORPHINE SULFATE 4 MG/ML INJ IV PUSH PRN (09:30)
[2017-02-06] MEDS: EPOETIN ALFA 10,000 UNITS/ML VIAL IV PUSH PRN (09:51)
[2017-02-06] MEDS: GELATIN 12 MM/7 MM FOAM TOP PRN (09:52)
--- NOTE | 2017-02-06 10:51 | HHI.NPPN ---
Subjective History of Present Illness 66 year old male with CHF/AICD , ESRD Additional Remarks feels better but tired Objective Data Data Vital Signs Date Time Temp Pulse Resp B/P (MAP) Pulse Ox O2 Delivery O2 Flow Rate FiO2 02/06/17 08:00 96.5 117 18 106/83 (91) 96 02/06/17 00:00 97.0 83 19 106/79 (88) 99 02/05/17 20:00 97.8 103 19 108/81 (90) 100 02/05/17 16:00 97.6 105 20 96/62 (73) 91 02/05/17 12:00 97.2 118 16 113/79 (90) 97 -: 02/06/17 0530 02/06/17 0530 Physical Exam General Appearance: Well Developed Pulmonary Resp Exam: Crackles, Decreased Bases Cardiology CV Exam: Irregular Gastrointestinal/Abdomen GI Exam: Soft, Non-Tender Extremeties Extremities Exam: Trace Edema Neurologic Neuro Exam: Alert, Awake, Oriented Assessment/Plan Problem List: (1) ESRD (end stage renal disease) ICD Codes: N18.6 - End stage renal disease Status: Acute Plan: Patient had hemodialysis proceedings noted 1.5 L UF 2 K [facility] then MWF follow with Dr. Amado patient not ready for hospice dc plans per Dr. Priest (2) Pulmonary edema ICD Codes: J81.1 - Chronic pulmonary edema Status: Acute Plan: Patient changed his mind about hospice Problem Qualifiers (1) Pulmonary edema: Qualified Codes: J81.0 - Acute pulmonary edema Ara Suarez MD Feb 06, 2017 10:51
--- NOTE | 2017-02-06 14:01 | HHI.PR ---
Subjective Remarks Pt had dialysis. feels ok. ate some of his lunch when asked if he has a rehabilitation caseworker, he states that he sees Dr. Brady. States "sometimes I see him sometimes I don't". When asked if he was supposed to be on a diuretic he said yes and tells me that he stopped it himself because he thinks it made him bleed. Pt is a poor historian and laughs at some of my questions, then closes his eyes and goes to sleep. Objective Vitals Vital Signs Date Time Temp Pulse Resp B/P (MAP) Pulse Ox O2 Delivery O2 Flow Rate FiO2 02/06/17 08:00 96.5 117 18 106/83 (91) 96 02/06/17 00:00 97.0 83 19 106/79 (88) 99 02/05/17 20:00 97.8 103 19 108/81 (90) 100 02/05/17 16:00 97.6 105 20 96/62 (73) 91 I/O 02/05/17 02/05/17 02/05/17 02/06/17 02/06/17 02/06/17 07:00 15:00 23:00 07:00 15:00 23:00 Intake Total 800 ml 240 ml Output Total 1500 ml Balance 800 ml 240 ml -1500 ml Intake Oral 800 ml 240 ml Output Hemodialysis 1500 ml # Voids 0 1 1 Result Diagram: 02/06/17 0530 02/06/17 0530 Imaging Last Impressions Chest X-Ray 02/03/17 1301 Signed Impressions: Service Date/Time: Friday, February 03, 2017 12:17 - CONCLUSION: Intra-alveolar pulmonary edema. Chico Ray Jr., MD Objective Remarks GENERAL: laying in bed, asleep but arousable. EYES: Extraocular muscles intact NECK: Trachea midline. CARDIOVASCULAR: Regular rate and rhythm. RESPIRATORY: No accessory muscle use. appear clear to auscultation however somewhat decrease at the base. GASTROINTESTINAL: Abdomen soft, non-tender, nondistended. MUSCULOSKELETAL: Extremities without edema. No obvious deformities. NEUROLOGICAL: Awake and alert. No obvious cranial nerve deficits. Normal speech. Procedures Hemodialysis A/P Problem List: (1) Noncompliance with renal dialysis ICD Code: Z91.15 - Patient's noncompliance with renal dialysis (2) Fluid overload ICD Code: E87.70 - Fluid overload, unspecified (3) ESRD (end stage renal disease) ICD Code: N18.6 - End stage renal disease Status: Acute (4) Pulmonary edema ICD Code: J81.1 - Chronic pulmonary edema Status: Acute (5) New onset atrial flutter ICD Code: I48.92 - Unspecified atrial flutter Status: Acute Assessment and Plan End-stage renal disease with noncompliance with fluid intake and dialysis Nephrology following. Palliative care following. Pt not yet ready for hospice. s/p HD today. Pt does have CHF as EF is 25-30%. Pt is non complaint w seeing his rehabilitation caseworker as well. apparently he quit taking his lasix. Admits to not following up regularly w his rehabilitation caseworker, Dr. Brady, at this time, will start him on lasix 20mg po daily and titrate up as tolerated. Pt's BNP was in the 1999 on admission. continue fluid restriction due to low EF. avoid IVFs Hyperkalemia resolved post HD. nephrology following. Pulmonary edema due to noncompliance. no IVFs. Hypertension/A. fib/flutter by history continue on Coreg once blood pressure stable Noncompliance Hypotension -resolved Anxiety continue on Ativan Physical therapy and occupational therapy to eval and treat Case management consult for d/c planning. it appears patient still wants procedures and dialysis which does not fit with the auspices of hospice. Palliative care is to meet w patient today Discharge Planning Meeting w palliative care today Problem Qualifiers (1) Pulmonary edema: Qualified Codes: J81.0 - Acute pulmonary edema Gabby Priest MD Feb 06, 2017 14:01
--- NOTE | 2017-02-06 15:20 | HHI.HCPN ---
Reason for visit a. To assist with evaluation and management of symptoms including: Debility. b. To assist medical decision maker(s) with: better understanding of current medical conditions; weighing benefits/burdens of medical treatment options; making medical treatment decisions. . Subjective/Interval History Mr. Vann is a 66-year-old male with a medical history significant for end- stage renal disease -on hemodialysis for the past 6 years, significant cardiac history to include cardiac stents x 5, pacer/AICD and 2 prior MIs, diabetes mellitus, liver disease. Patient presented to ED on 02/03/17 via EMS for evaluation of shortness of breath. Patient with history of HD noncompliance, verbalizing not wishing to continue hemodialysis. Palliative Care was consulted for further clarifications of goals of care given the above. Patient seen in his room. Resting in bed in no acute distress. Alert and oriented times x self, place and situation. Verbal, communicating needs. Patient received hemodialysis today, 1.5 L removed. Patient remains afebrile, stable hemodynamically. Laboratory workup today revealing WBC 8.3, Hgb is stable at 11.6, platelet count 131. Potassium 5.2, BUN/creatinine 59/6.14, labs drawn prior to hemodialysis. No new imaging for review. Reviewed goals of care, patient tells me that he doesn't feel ready to discontinue hemodialysis as of yet. He is looking into umbilical hernia repair by the end of the year. Patient verbalized understanding that he may not be able to return to independent living given higher level of needs. Patient considering long-term placement. Telephone conversation with patient's daughter Juhi Jeff. Medical update provided. Family in favor of comfort directed care with hospice, however, wishing to follow patient's wishes. Family was encouraged to continue goals of care conversation with patient. Case discussed with case preparer and liner Lana. Patient requiring long-term placement given higher level of needs. . Family/friend interactions See interval note. . Advance Directives Living Will: Never completed Health Care Surrogate: Never completed Advance Directive Specifics Health Care Surrogate(s): Patient reports that no advance directives have been completed. Patient is . As per [place] statute, healthcare proxy decision making falls to the majority of patient's children for which he has 2. Patient declined completion of designation of healthcare surrogate during this visit. . Significant change in goals: Patient wishing to continue full aggressive management short of no code. . Objective Vital Signs Date Time Temp Pulse Resp B/P (MAP) Pulse Ox O2 Delivery O2 Flow Rate FiO2 02/06/17 08:00 96.5 117 18 106/83 (91) 96 02/06/17 00:00 97.0 83 19 106/79 (88) 99 02/05/17 20:00 97.8 103 19 108/81 (90) 100 02/05/17 16:00 97.6 105 20 96/62 (73) 91 Intake & Output 02/06/17 02/06/17 07:00 19:00 Intake Total 240 ml Output Total 1500 ml Balance 240 ml -1500 ml Intake Oral 240 ml Output Hemodialysis 1500 ml # Voids 1 Physical Exam CONSTITUTIONAL/GENERAL: This is an elderly patient resting bed in no acute distress. Patient appears older than stated age. TUBES/LINES/DRAINS: PIV. Nasal cannula. SKIN: No jaundice, rashes, or lesions. Ecchymoses on upper extremities. No wounds seen anteriorly. Skin temperature appropriate. Stasis dermatitis to bilateral lower extremities. Dry skin. HEAD: Atraumatic. Normocephalic. EYES: Pupils equal and round and reactive. Extraocular motions intact. No scleral icterus. No injection or drainage ENT: Hearing grossly normal. Nose without bleeding or purulent drainage. Moist oral mucosa. NECK: Trachea midline. Supple, nontender. CARDIOVASCULAR: Regular rate and rhythm. Peripheral pulses symmetric. Trace edema to bilateral lower extremities. RESPIRATORY/CHEST: Symmetric, unlabored respirations. Coarse breath sounds anteriorly. GASTROINTESTINAL: Abdomen soft, non-tender, nondistended. Umbilical hernia. Bowel sounds present. GENITOURINARY: Without palpable bladder distension. MUSCULOSKELETAL: Extremities without clubbing, cyanosis. No mottling or clubbing. NEUROLOGICAL: Awake and alert. Motor and sensory grossly within normal limits. Follows commands. Moves all extremities. PSYCHIATRIC: Calm. pleasant and cooperative. . Diagnostic Tests Laboratory Laboratory Tests Test 02/04/17 04:40 02/05/17 04:05 02/06/17 05:30 White Blood Count 8.0 TH/MM3 (4.0-11.0) 12.2 TH/MM3 (4.0-11.0) 8.3 TH/MM3 (4.0-11.0) Red Blood Count 3.61 MIL/MM3 (4.50-5.90) 3.83 MIL/MM3 (4.50-5.90) 3.79 MIL/MM3 (4.50-5.90) Hemoglobin 10.9 GM/DL (13.0-17.0) 11.6 GM/DL (13.0-17.0) 11.6 GM/DL (13.0-17.0) Hematocrit 33.3 % (39.0-51.0) 35.4 % (39.0-51.0) 35.7 % (39.0-51.0) Mean Corpuscular Volume 92.2 FL (80.0-100.0) 92.4 FL (80.0-100.0) 94.1 FL (80.0-100.0) Mean Corpuscular Hemoglobin 30.2 PG (27.0-34.0) 30.4 PG (27.0-34.0) 30.4 PG (27.0-34.0) Mean Corpuscular Hemoglobin Concent 32.8 % (32.0-36.0) 32.9 % (32.0-36.0) 32.4 % (32.0-36.0) Red Cell Distribution Width 16.4 % (11.6-17.2) 16.6 % (11.6-17.2) 16.5 % (11.6-17.2) Platelet Count 133 TH/MM3 (150-450) 146 TH/MM3 (150-450) 131 TH/MM3 (150-450) Mean Platelet Volume 9.5 FL (7.0-11.0) 9.8 FL (7.0-11.0) 9.2 FL (7.0-11.0) Neutrophils (%) (Auto) 67.7 % (16.0-70.0) 79.7 % (16.0-70.0) 70.5 % (16.0-70.0) Lymphocytes (%) (Auto) 14.3 % (9.0-44.0) 6.2 % (9.0-44.0) 12.0 % (9.0-44.0) Monocytes (%) (Auto) 13.1 % (0.0-8.0) 9.7 % (0.0-8.0) 12.3 % (0.0-8.0) Eosinophils (%) (Auto) 3.5 % (0.0-4.0) 3.2 % (0.0-4.0) 3.9 % (0.0-4.0) Basophils (%) (Auto) 1.4 % (0.0-2.0) 1.2 % (0.0-2.0) 1.3 % (0.0-2.0) Neutrophils # (Auto) 5.4 TH/MM3 (1.8-7.7) 9.8 TH/MM3 (1.8-7.7) 5.9 TH/MM3 (1.8-7.7) Lymphocytes # (Auto) 1.1 TH/MM3 (1.0-4.8) 0.8 TH/MM3 (1.0-4.8) 1.0 TH/MM3 (1.0-4.8) Monocytes # (Auto) 1.0 TH/MM3 (0-0.9) 1.2 TH/MM3 (0-0.9) 1.0 TH/MM3 (0-0.9) Eosinophils # (Auto) 0.3 TH/MM3 (0-0.4) 0.4 TH/MM3 (0-0.4) 0.3 TH/MM3 (0-0.4) Basophils # (Auto) 0.1 TH/MM3 (0-0.2) 0.1 TH/MM3 (0-0.2) 0.1 TH/MM3 (0-0.2) CBC Comment DIFF FINAL DIFF FINAL DIFF FINAL Differential Comment Blood Urea Nitrogen 52 MG/DL (7-18) 46 MG/DL (7-18) 59 MG/DL (7-18) Creatinine 5.56 MG/DL (0.60-1.30) 5.12 MG/DL (0.60-1.30) 6.14 MG/DL (0.60-1.30) Random Glucose 136 MG/DL (74-106) 121 MG/DL (74-106) 130 MG/DL (74-106) Total Protein 7.7 GM/DL (6.4-8.2) 8.2 GM/DL (6.4-8.2) Albumin 3.6 GM/DL (3.4-5.0) 3.7 GM/DL (3.4-5.0) Calcium Level 8.9 MG/DL (8.5-10.1) 9.2 MG/DL (8.5-10.1) 8.9 MG/DL (8.5-10.1) Phosphorus Level 4.4 MG/DL (2.5-4.9) 4.4 MG/DL (2.5-4.9) Magnesium Level 1.7 MG/DL (1.5-2.5) 1.7 MG/DL (1.5-2.5) Alkaline Phosphatase 64 U/L (45-117) 73 U/L (45-117) Aspartate Amino Transf (AST/SGOT) 22 U/L (15-37) 25 U/L (15-37) Alanine Aminotransferase (ALT/SGPT) 25 U/L (12-78) 24 U/L (12-78) Total Bilirubin 0.8 MG/DL (0.2-1.0) 0.8 MG/DL (0.2-1.0) Sodium Level 138 MEQ/L (136-145) 137 MEQ/L (136-145) 135 MEQ/L (136-145) Potassium Level 5.4 MEQ/L (3.5-5.1) 4.8 MEQ/L (3.5-5.1) 5.2 MEQ/L (3.5-5.1) Chloride Level 102 MEQ/L (98-107) 99 MEQ/L (98-107) 99 MEQ/L (98-107) Carbon Dioxide Level 24.6 MEQ/L (21.0-32.0) 27.1 MEQ/L (21.0-32.0) 24.4 MEQ/L (21.0-32.0) Anion Gap 11 MEQ/L (5-15) 11 MEQ/L (5-15) 12 MEQ/L (5-15) Estimat Glomerular Filtration Rate 10 ML/MIN (>89) 11 ML/MIN (>89) 9 ML/MIN (>89) Hemoglobin A1c 7.2 % (4.3-6.0) 7.0 % (4.3-6.0) Total Creatine Kinase 32 U/L (39-308) Troponin I 0.03 NG/ML (0.02-0.05) Free Thyroxine 1.05 NG/DL (0.76-1.46) 1.20 NG/DL (0.76-1.46) Thyroid Stimulating Hormone 3rd Gen 3.060 uIU/ML (0.358-3.740) 3.660 uIU/ML (0.358-3.740) Result Diagram: 02/06/17 0530 02/06/17 0530 Assessment and Plan Disease Oriented Problem List: (1) ESRD (end stage renal disease) (2) Congestive heart failure (3) Cardiomyopathy (4) Pulmonary edema (5) Physical deconditioning (6) Coronary artery disease Symptom Scale: (1) Dyspnea 0-10 Scale: Unable to quantify Comment: Secondary to CHF, end-stage renal disease. (2) Pain 0-10 Scale: 0 Comment: Secondary to umbilical hernia. Pertinent Non-Medical Issues Psychosocial: Patient originally from [place]. Lived in [place] for approximately 20 years. Moved to [place] 10 years ago. Patient is , has 3 children. 2 daughters Juhi and Aneta. Son 2 days ago secondary to EtOH use and abuse. 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 Spiritual: No anglican affiliation. Legal: No advance directives completed. Ethical issues impacting care: No ethical issues identified. . Important Contacts Daughter Juhi Jim Daughter Aneta Rob -pending contact number Patient's sister Daria Virgen . Prognosis Mr. vann is a 66-year-old male with a medical history significant for end- stage renal disease -on hemodialysis for the past 6 years, significant cardiac history to include cardiac stents x 5, pacer/AICD and 2 prior MIs, diabetes mellitus, liver disease. Patient presented to ED on 02/03/17 via EMS for evaluation of shortness of breath. Patient admitted secondary to CHF, end- stage renal disease requiring hemodialysis. Patient's overall prognosis is fair poor for a prolonged survival given end-stage renal disease, non- compliance with hemodialysis, significant cardiac history, multiple other comorbidities, progressive decline, profound physical deconditioning. Patient appears hospice appropriate should he elects to comfort directed care. . Code Status: No Code Plan * CODE STATUS: No code. DNR/DNI. Patient reported that he has previously signed a community DNR while at [facility]. Patient's daughter Juhi and sister Darai in agreement with no CODE STATUS. * HEALTHCARE DECISION-MAKING: Patient participating in medical decision-making. He appears to have a fair understanding of his complicated clinical condition and overall poor prognosis, however, unclear if patient fully understands the risks versus burdens of treatment options. No advance directives completed. Patient is . As per [place] statute, healthcare proxy decision-making falls to the majority of patient's children for which he has 2. Palliative care recommends shared decision-making with daughters Juhi and Aneta given the above. * GOALS OF CARE: Patient electing to continue aggressive management short of no code. Patient verbalized wishing to continue hemodialysis and pursuing umbilical hernia repair, he feels that he is not ready for hospice as of yet. Patient verbalized understanding that he may not be able to return to independent living given higher level of needs. Patient considering long-term placement. Family in favor of comfort directed care with hospice, however, following patient's wishes. Family was encouraged to continue goals of care conversation with patient. * SYMPTOMS: = Dyspnea: Secondary to CHF, end-stage renal disease. Currently tolerating O2 via nasal cannula. Receiving hemodialysis. Nephrology following. =Pain: Secondary to umbilical hernia. Percocet available as needed. Has required 3 doses in the past to 24 hours. = Bowel: Exacerbated by opioid use and bedrest. Senokot, milk of magnesia, lactulose and Dulcolax suppository available as needed. * Case discussed with case preparer and liner Lana. Patient requiring long-term placement given higher level of needs. * Palliative care contact information has been provided to patient and family. * Palliative care will continue to follow-up for further clarifications of goals of care as patient's clinical course continues to evolve. . Time Spent Total Floor Time (mins): 32 (Total time to include review medical records, physical exam, goals of care conversation with patient, telephone conversation with patient's daughter Juhi, case discussion with case preparer and liner.) >50% Counseling/Coord of Care: Yes Attestation To help prompt me to consider important information that might be impacting today's encounter and assessment, information from prior notes written by myself or my colleagues may have been "brought forward" into today's note. My signature on this note, however, is an attestation that I personally performed the exam, history, and/or decision-making noted today, and, unless otherwise indicated, the interactions with patient, family, and staff as well as the review of records all occurred today. I also attest that the listed assessment and stated plan reflect my best clinical judgment today based on the combination of historical information, prior notes, and today's exam/ interactions. When time spent is documented, it refers only to time spent today by the signer, or if indicated, combined time spent today by collaborating physician/nurse practitioner. Lindsay Brock Feb 06, 2017 15:20
[2017-02-06 15:54] VITALS: BP 91/62
[2017-02-06 16:00] VITALS: BP 91/62; PULSE 118; RESP 17; TEMP 96.7; O2SAT 92
[2017-02-06 20:53] VITALS: BP 114/80; PULSE 118; RESP 18; TEMP 96.5; O2SAT 95
[2017-02-06 23:27] VITALS: O2SAT 95
[2017-02-07 00:55] VITALS: BP 96/57; PULSE 113; RESP 16; TEMP 96.5; O2SAT 92
[2017-02-07 07:45] LABS: BICARBONATE 24.9 MEQ/L (21.0-32.0)
[2017-02-07 08:00] VITALS: BP 103/57; PULSE 112; RESP 20; TEMP 97; O2SAT 91
[2017-02-07] MEDS: INSULIN ASPART SUPPLEMENTAL SCALE SQ SCH ×4 (08:00→20:08)
[2017-02-07] MEDS ORDERED: FUROSEMIDE 20 MG TAB PO SCH (09:00)
[2017-02-07] MEDS ORDERED: CARV6.252 PO (10:43)
[2017-02-07] MEDS ORDERED: LORA-475 PO (10:43)
[2017-02-07] MEDS ORDERED: NORC5TAB PO (10:43)
--- NOTE | 2017-02-07 10:43 | HHI.DS ---
Discharge Summary Admission Date Feb 03, 2017 at 15:05 Discharge Date: Feb 07, 2017 Admitting Diagnosis ESRD on hemodialysis; hyperkalemia, pulmonary edema, atrial flutter (1) Noncompliance with renal dialysis ICD Code: Z91.15 - Patient's noncompliance with renal dialysis Diagnosis: Principal (2) Fluid overload ICD Code: E87.70 - Fluid overload, unspecified Diagnosis: Principal (3) ESRD (end stage renal disease) ICD Code: N18.6 - End stage renal disease Status: Acute (4) Pulmonary edema ICD Code: J81.1 - Chronic pulmonary edema Diagnosis: Principal Status: Acute (5) New onset atrial flutter ICD Code: I48.92 - Unspecified atrial flutter Diagnosis: Principal Status: Acute Procedures Hemodialysis Brief History - From Admission Patient is a 66-year-old male who presents to the emergency department via EMS for evaluation of shortness of breath. He is felt short of breath for at least a month. Has had progressive worsening dyspnea. Patient reports history of end -stage renal disease and liver disease and history of 5 cardiac stents and diabetes and pacemaker AICD. Patient denies any fever, chills, patient denies any chest pain, and states his abdomen is getting distended states he's had a paracentesis and thoracentesis in the past 5-6 months. Patient has been feeling generally weak on 2 L by nasal cannula of oxygen at home supposed to wear 06/10 does not wear it all the time. He states he has not been eating much does not want to have his abdomen get "salcido." Patient is on hemodialysis via a fistula to the left upper extremity. He is supposed to get dialysis on Thursday, , and Thursday but was due to get it today. He Missed a day last week has been poorly compliant with his dialysis Patient states he is considering hospice but not on hospice yet CBC/BMP: 02/06/17 0530 02/07/17 0455 Significant Findings Laboratory Tests Test 02/05/17 04:05 02/06/17 05:30 02/07/17 04:55 White Blood Count 12.2 TH/MM3 (4.0-11.0) Red Blood Count 3.83 MIL/MM3 (4.50-5.90) 3.79 MIL/MM3 (4.50-5.90) Hemoglobin 11.6 GM/DL (13.0-17.0) 11.6 GM/DL (13.0-17.0) Hematocrit 35.4 % (39.0-51.0) 35.7 % (39.0-51.0) Platelet Count 146 TH/MM3 (150-450) 131 TH/MM3 (150-450) Neutrophils (%) (Auto) 79.7 % (16.0-70.0) 70.5 % (16.0-70.0) Lymphocytes (%) (Auto) 6.2 % (9.0-44.0) Monocytes (%) (Auto) 9.7 % (0.0-8.0) 12.3 % (0.0-8.0) Neutrophils # (Auto) 9.8 TH/MM3 (1.8-7.7) Lymphocytes # (Auto) 0.8 TH/MM3 (1.0-4.8) Monocytes # (Auto) 1.2 TH/MM3 (0-0.9) 1.0 TH/MM3 (0-0.9) Blood Urea Nitrogen 46 MG/DL (7-18) 59 MG/DL (7-18) 42 MG/DL (7-18) Creatinine 5.12 MG/DL (0.60-1.30) 6.14 MG/DL (0.60-1.30) 4.81 MG/DL (0.60-1.30) Random Glucose 121 MG/DL (74-106) 130 MG/DL (74-106) 107 MG/DL (74-106) Estimat Glomerular Filtration Rate 11 ML/MIN (>89) 9 ML/MIN (>89) 12 ML/MIN (>89) Hemoglobin A1c 7.0 % (4.3-6.0) Sodium Level 135 MEQ/L (136-145) Potassium Level 5.2 MEQ/L (3.5-5.1) Imaging Last Impressions Chest X-Ray 02/03/17 1301 Signed Impressions: Service Date/Time: Friday, February 03, 2017 12:17 - CONCLUSION: Intra-alveolar pulmonary edema. Chico Ray Jr., MD PE at Discharge GENERAL: laying in bed, asleep but arousable. EYES: Extraocular muscles intact NECK: Trachea midline. CARDIOVASCULAR: Regular rate and rhythm. RESPIRATORY: No accessory muscle use. appear clear to auscultation however somewhat decrease at the base. GASTROINTESTINAL: Abdomen soft, non-tender, nondistended. MUSCULOSKELETAL: Extremities without edema. No obvious deformities. NEUROLOGICAL: Awake and alert. No obvious cranial nerve deficits. Normal speech. Pt update on day of discharge Pt feels well, tells me that he doesn't remember why he came here. Wants to eat his breakfast. States that he wants to proceed w HD and wants repair of his hernia, doesn't want hospice. Denies any SOB, CP, nausea or vomiting. denies any pain Hospital Course End-stage renal disease with noncompliance with fluid intake and dialysis Nephrology following. Palliative care following. Pt not yet ready for hospice. Palliative care did speak w him and family. Pt wants aggressive management i.e continue HD and get his hernia repaired. Family supportive of patient's wishes. s/p HD yesterday. Next would be Thursday. Gets dialysis MWF. Discussed w Dr. Suarez , day camp counselor, and from his standpoint, pt can be discharged. Per Palliative care recs, pt does require long-term placement given higher level of needs. Pt does have CHF as EF is 25-30%. Pt is non complaint w seeing his engineering team supervisor as well. apparently he quit taking his lasix. Admits to not following up regularly w his engineering team supervisor, Dr. Brady, at this time. He tells me this morning that he has an appt w him in 1 week. Because pt's BP are low, will hold off on giving him lasix. continue to fluid restrict at 1500ml/day. avoid IVFs Hyperkalemia resolved post HD. nephrology following. Pulmonary edema due to noncompliance. no IVFs. Hypertension/A. fib/flutter by history continue on Coreg once blood pressure stable Pt Condition on Discharge: Stable Discharge Disposition: Discharge to SNF Discharge Time: > 30 minutes Discharge Instructions DIET: Follow Instructions for: Renal Failure Diet Fluid Restrictions: 1500 ml/day Activities you can perform: Regular-No Restrictions Follow up Referrals: Cardiology - 1 Week Nephrology - 02/09/17 PCP Follow-up - 2 Weeks Changed Medications: Lorazepam (Ativan) 2 Mg Tab 2 MG PO DAILY PRN for ANXIETY AND/OR AGITATION, #2 TAB 0 Refills (Changed from: 3 MG) Continued Medications: Carvedilol (Carvedilol) 6.25 Mg Tab 6.25 MG PO BID, #60 TAB 0 Refills (This prescription has been renewed) Hydrocodone-Acetaminophen (Gray) 5 Mg-325 Mg Tab 1 TAB PO BID PRN for PAIN, #20 TAB 0 Refills (This prescription has been renewed ) Pantoprazole (Protonix) 40 Mg Tab 1 TAB PO DAILY for Reflux, #30 TAB 0 Refills Gabby Priest MD Feb 07, 2017 10:43
[2017-02-07] MEDS: DOCUSATE SODIUM 50 MG/SENNA 8.6 MG TAB PO SCH ×2 (10:54→20:13)
[2017-02-07] MEDS: CARVEDILOL 6.25 MG TAB PO SCH ×2 (10:55→20:08)
[2017-02-07] MEDS: PANTOPRAZOLE SOD 40 MG DELAYED RELEASE TAB PO SCH (10:55)
[2017-02-07] MEDS: SODIUM CHLORIDE 0.9% FLUSH 10 ML FLUSH IV FLUSH SCH ×2 (10:58→20:13)
[2017-02-07 12:00] VITALS: BP 108/67; PULSE 114; RESP 22; TEMP 96.8; O2SAT 91
[2017-02-07] MEDS: LORazepam 1 MG TAB PO PRN (12:13)
[2017-02-07 16:00] VITALS: BP 97/65; PULSE 116; RESP 20; TEMP 98.1; O2SAT 93
[2017-02-07 20:00] VITALS: BP 96/70; PULSE 115; RESP 20; TEMP 97.9; O2SAT 98
[2017-02-08] MEDS: LORazepam 1 MG TAB PO PRN (01:17)
[2017-02-08 01:23] VITALS: BP 108/78; PULSE 114; RESP 20; TEMP 96.6; O2SAT 97
[2017-02-08 08:00] VITALS: BP 94/60; PULSE 114; RESP 21; TEMP 96.4; O2SAT 91
[2017-02-08] MEDS: INSULIN ASPART SUPPLEMENTAL SCALE SQ SCH ×4 (08:00→20:29)
[2017-02-08] MEDS: CARVEDILOL 6.25 MG TAB PO SCH ×2 (08:39→20:29)
[2017-02-08] MEDS: DOCUSATE SODIUM 50 MG/SENNA 8.6 MG TAB PO SCH ×2 (08:40→20:30)
[2017-02-08] MEDS: PANTOPRAZOLE SOD 40 MG DELAYED RELEASE TAB PO SCH (08:40)
[2017-02-08] MEDS: SODIUM CHLORIDE 0.9% FLUSH 10 ML FLUSH IV FLUSH SCH ×2 (08:44→20:29)
--- NOTE | 2017-02-08 11:07 | HHI.PR ---
Subjective Remarks Seen earlier. Pt wants a big mac at [facility]. wants his pain meds. no other complaints yesterday evening fell but pt denies hitting his head Objective Vitals Vital Signs Date Time Temp Pulse Resp B/P (MAP) Pulse Ox O2 Delivery O2 Flow Rate FiO2 02/08/17 08:00 96.4 114 21 94/60 (71) 91 02/08/17 01:23 96.6 114 20 108/78 (88) 97 02/07/17 20:00 97.9 115 20 96/70 (79) 98 02/07/17 16:00 98.1 116 20 97/65 (76) 93 02/07/17 12:00 96.8 114 22 108/67 (81) 91 I/O 02/07/17 02/07/17 02/07/17 02/08/17 02/08/17 02/08/17 07:00 15:00 23:00 07:00 15:00 23:00 Intake Total 1800 ml 240 ml Output Total 0 ml Balance 1800 ml 240 ml Intake Oral 1800 ml 240 ml Output Urine Total 0 ml # Voids 0 3 # Bowel Movements 0 1 Result Diagram: 02/06/17 0530 02/07/17 0455 Imaging Last Impressions Chest X-Ray 02/03/17 1301 Signed Impressions: Service Date/Time: Friday, February 03, 2017 12:17 - CONCLUSION: Intra-alveolar pulmonary edema. Chico Ray Jr., MD Objective Remarks GENERAL: laying in bed, asleep but arousable. EYES: Extraocular muscles intact NECK: Trachea midline. CARDIOVASCULAR: Regular rate and rhythm. RESPIRATORY: No accessory muscle use. appear clear to auscultation however somewhat decrease at the base. GASTROINTESTINAL: Abdomen soft, non-tender, nondistended. MUSCULOSKELETAL: Extremities without edema. No obvious deformities. NEUROLOGICAL: Awake and alert. No obvious cranial nerve deficits. Normal speech. Procedures Hemodialysis A/P Problem List: (1) Noncompliance with renal dialysis ICD Code: Z91.15 - Patient's noncompliance with renal dialysis (2) Fluid overload ICD Code: E87.70 - Fluid overload, unspecified (3) ESRD (end stage renal disease) ICD Code: N18.6 - End stage renal disease Status: Acute (4) Pulmonary edema ICD Code: J81.1 - Chronic pulmonary edema Status: Acute (5) New onset atrial flutter ICD Code: I48.92 - Unspecified atrial flutter Status: Acute Assessment and Plan End-stage renal disease with noncompliance with fluid intake and dialysis Nephrology following. Palliative care following. Pt not yet ready for hospice. Palliative care did speak w him and family. Pt wants aggressive management i.e continue HD and get his hernia repaired. Family supportive of patient's wishes. Getting HD. Next would be Thursday. Gets dialysis MWF. Discussed w Dr. Suarez, automobile club travel counselor, and from his standpoint, pt can be discharged. Per Palliative care recs, pt does require long-term placement given higher level of needs. CM assisting w placement Pt does have CHF as EF is 25-30%. Pt is non complaint w seeing his secondary set up man as well. apparently he quit taking his lasix,however bp's here are low as well. Admits to not following up regularly w his secondary set up man, Dr. Brady, at this time. Pt told me that he has an appt w him in 1 week. Because pt's BP are low, will hold off on giving him lasix. continue to fluid restrict at 1500ml/day. avoid IVFs Hyperkalemia resolved post HD. nephrology following. Pulmonary edema due to noncompliance. no IVFs. Hypertension/A. fib/flutter by history continue on Coreg once blood pressure stable Discharge Planning discharge orders to SNF in place Problem Qualifiers (1) Pulmonary edema: Qualified Codes: J81.0 - Acute pulmonary edema Gabby Priest MD Feb 08, 2017 11:07
[2017-02-08 12:00] VITALS: BP 93/66; PULSE 115; RESP 16; TEMP 95.6; O2SAT 93
[2017-02-08 16:00] VITALS: BP 95/68; PULSE 116; RESP 20; TEMP 96.7; O2SAT 92
[2017-02-08] MEDS ORDERED: LORazepam 1 MG TAB PO ONE (17:00)
--- NOTE | 2017-02-08 17:02 | HHI.NPPN ---
Subjective History of Present Illness 66 year old male with CHF/AICD , ESRD Additional Remarks feels better but tired Objective Data Data Vital Signs Date Time Temp Pulse Resp B/P (MAP) Pulse Ox O2 Delivery O2 Flow Rate FiO2 02/08/17 16:00 96.7 116 20 95/68 (77) 92 02/08/17 12:00 95.6 115 16 93/66 (75) 93 02/08/17 08:00 96.4 114 21 94/60 (71) 91 02/08/17 01:23 96.6 114 20 108/78 (88) 97 02/07/17 20:00 97.9 115 20 96/70 (79) 98 -: 02/06/17 0530 02/07/17 0455 Physical Exam General Appearance: Well Developed Pulmonary Resp Exam: Crackles, Decreased Bases Cardiology CV Exam: Irregular Gastrointestinal/Abdomen GI Exam: Soft, Non-Tender Extremeties Extremities Exam: Trace Edema Neurologic Neuro Exam: Alert, Awake, Oriented Assessment/Plan Problem List: (1) ESRD (end stage renal disease) ICD Codes: N18.6 - End stage renal disease Status: Acute Plan: Patient had hemodialysis Thursday 1.5 L UF 2 [facility] then MWF follow with Dr. Amado patient not ready for hospice dc plans per Dr. Priest apparently had a fall with no injury HD in am (2) Pulmonary edema ICD Codes: J81.1 - Chronic pulmonary edema Status: Acute Plan: Patient changed his mind about hospice Problem Qualifiers (1) Pulmonary edema: Qualified Codes: J81.0 - Acute pulmonary edema Ara Suarez MD Feb 08, 2017 17:02
[2017-02-08 20:00] VITALS: BP 96/75; PULSE 116; RESP 18; TEMP 97.1; O2SAT 99
[2017-02-08 20:26] VITALS: PULSE 114
[2017-02-08] MEDS: LORazepam 2 MG TAB PO PRN (23:41)
[2017-02-09] VITALS: BP 130/66; PULSE 116; RESP 18; TEMP 96.7; O2SAT 96
[2017-02-09 08:00] VITALS: BP 96/76; PULSE 115; RESP 18; TEMP 96.6; O2SAT 97
[2017-02-09] MEDS: INSULIN ASPART SUPPLEMENTAL SCALE SQ SCH ×4 (08:00→21:00)
[2017-02-09] MEDS: DOCUSATE SODIUM 50 MG/SENNA 8.6 MG TAB PO SCH ×2 (08:38→21:00)
[2017-02-09] MEDS: CARVEDILOL 6.25 MG TAB PO SCH ×2 (08:39→21:00)
[2017-02-09] MEDS: PANTOPRAZOLE SOD 40 MG DELAYED RELEASE TAB PO SCH (08:39)
[2017-02-09] MEDS: SODIUM CHLORIDE 0.9% FLUSH 10 ML FLUSH IV FLUSH SCH ×2 (09:00→21:25)
--- NOTE | 2017-02-09 11:33 | HHI.PR ---
Subjective Remarks no acute issue awaiting placement Objective Vitals Vital Signs Date Time Temp Pulse Resp B/P (MAP) Pulse Ox O2 Delivery O2 Flow Rate FiO2 02/09/17 08:00 96.6 115 18 96/76 (83) 97 02/09/17 00:00 96.7 116 18 130/66 (87) 96 02/08/17 20:26 114 02/08/17 20:00 97.1 116 18 96/75 (82) 99 02/08/17 16:00 96.7 116 20 95/68 (77) 92 02/08/17 12:00 95.6 115 16 93/66 (75) 93 I/O 02/08/17 02/08/17 02/08/17 02/09/17 02/09/17 02/09/17 07:00 15:00 23:00 07:00 15:00 23:00 Intake Total 240 ml 800 ml 0 ml Output Total 0 ml Balance 240 ml 800 ml 0 ml Intake Oral 240 ml 800 ml 0 ml Output Urine Total 0 ml # Voids 3 0 # Bowel Movements 1 0 0 Result Diagram: 02/06/17 0530 02/07/17 0455 Objective Remarks GENERAL: This is a well-nourished, well-developed patient, in no apparent distress. CARDIOVASCULAR: Regular rate and rhythm without murmurs, gallops, or rubs. RESPIRATORY: Clear to auscultation. Breath sounds equal bilaterally. No wheezes , rales, or rhonchi. GASTROINTESTINAL: Abdomen soft, non-tender, nondistended. Normal active bowel sounds MUSCULOSKELETAL: Extremities without clubbing, cyanosis, or edema. NEURO: Alert & Oriented x4 to person, place, time, situation. Moves all ext x4 Procedures Hemodialysis A/P Problem List: (1) Noncompliance with renal dialysis ICD Code: Z91.15 - Patient's noncompliance with renal dialysis (2) Fluid overload ICD Code: E87.70 - Fluid overload, unspecified (3) ESRD (end stage renal disease) ICD Code: N18.6 - End stage renal disease Status: Acute (4) Pulmonary edema ICD Code: J81.1 - Chronic pulmonary edema Status: Acute (5) New onset atrial flutter ICD Code: I48.92 - Unspecified atrial flutter Status: Acute Assessment and Plan End-stage renal disease with noncompliance with fluid intake and dialysis Nephrology following. Palliative care following. Pt not yet ready for hospice. Palliative care did speak w him and family. Pt wants aggressive management i.e continue HD and get his hernia repaired. Family supportive of patient's wishes. Getting HD. Next would be Thursday. Gets dialysis MWF. Discussed w Dr. Suarez, director of strategy & mobile, and from his standpoint, pt can be discharged. Per Palliative care recs, pt does require long-term placement given higher level of needs. CM assisting w placement Pt does have CHF as EF is 25-30%. Pt is non complaint w seeing his human resources consultant as well. apparently he quit taking his lasix,however bp's here are low as well. Admits to not following up regularly w his human resources consultant, Dr. Brady, at this time. Pt told me that he has an appt w him in 1 week. Because pt's BP are low, will hold off on giving him lasix. continue to fluid restrict at 1500ml/day. avoid IVFs Hyperkalemia resolved post HD. nephrology following. Pulmonary edema due to noncompliance. no IVFs. Hypertension/A. fib/flutter by history continue on Coreg once blood pressure stable 02/09: cont placement effort Problem Qualifiers (1) Pulmonary edema: Qualified Codes: J81.0 - Acute pulmonary edema Cory Driscoll MD Feb 09, 2017 11:33
[2017-02-09 12:00] VITALS: BP 102/74; PULSE 116; RESP 18; TEMP 97.9; O2SAT 96
--- NOTE | 2017-02-09 14:01 | HHI.HCPN ---
Reason for visit a. To assist with evaluation and management of symptoms including: Debility. b. To assist medical decision maker(s) with: better understanding of current medical conditions; weighing benefits/burdens of medical treatment options; making medical treatment decisions. . Subjective/Interval History Mr. Vann is a 66-year-old male with a medical history significant for end- stage renal disease -on hemodialysis for the past 6 years, significant cardiac history to include cardiac stents x 5, pacer/AICD and 2 prior MIs, diabetes mellitus, liver disease. Patient presented to ED on 02/03/17 via EMS for evaluation of shortness of breath. Patient with history of HD noncompliance, verbalizing not wishing to continue hemodialysis. Palliative Care was consulted for further clarifications of goals of care given the above. Patient seen in his room. Resting in bed in no acute distress. Alert and oriented times x self, place and situation, sleepy. Verbal, communicating needs. Endorsing feeling very tired. Most recent laboratory work 02/06/17 revealing BUN/creatinine 42/4.81. Pending hemodialysis this afternoon. Patient confirmed wishing for long-term placement, verbalized NOT being ready to stop hemodialysis/transition to hospice at this time. Telephone conversation with patient's daughter Juhi. Medical update provided. Reviewed ongoing plan for disposition, pending insurance verification at the [facility] and rehabilitation. Telephone conversation with patient's private pro leeroy social work assistant Danae Reza, she reports no advance directives or community DNR on record. Assisted patient with completion of community DNR. Family supportive of patient's wishes. . Family/friend interactions See interval note. . Advance Directives Living Will: Never completed Health Care Surrogate: Never completed Advance Directive Specifics Health Care Surrogate(s): Patient reports that no advance directives have been completed. Patient is . As per [place] statute, healthcare proxy decision making falls to the majority of patient's children for which he has 2. Patient declined completion of designation of healthcare surrogate during this visit. . Significant change in goals: No code. DNR/DNI. Patient electing to continue aggressive management short of no code. Pending placement in long-term facility. . Objective Vital Signs Date Time Temp Pulse Resp B/P (MAP) Pulse Ox O2 Delivery O2 Flow Rate FiO2 02/09/17 12:00 97.9 116 18 102/74 (83) 96 02/09/17 08:00 96.6 115 18 96/76 (83) 97 02/09/17 00:00 96.7 116 18 130/66 (87) 96 02/08/17 20:26 114 02/08/17 20:00 97.1 116 18 96/75 (82) 99 02/08/17 16:00 96.7 116 20 95/68 (77) 92 Intake & Output 02/09/17 02/09/17 07:00 19:00 Intake Total 0 ml Balance 0 ml Intake Oral 0 ml # Voids 0 # Bowel Movements 0 Physical Exam CONSTITUTIONAL/GENERAL: This is an elderly patient resting bed in no acute distress. Patient appears older than stated age. TUBES/LINES/DRAINS: PIV. Nasal cannula. SKIN: No jaundice, rashes, or lesions. Ecchymoses on upper extremities. No wounds seen anteriorly. Skin temperature appropriate. Stasis dermatitis to bilateral lower extremities. Dry skin. HEAD: Atraumatic. Normocephalic. EYES: Pupils equal and round and reactive. Extraocular motions intact. No scleral icterus. No injection or drainage ENT: Hearing grossly normal. Nose without bleeding or purulent drainage. Moist oral mucosa. NECK: Trachea midline. Supple, nontender. CARDIOVASCULAR: Regular rate and rhythm. Peripheral pulses symmetric. Trace edema to bilateral lower extremities. RESPIRATORY/CHEST: Symmetric, unlabored respirations. Coarse breath sounds anteriorly. GASTROINTESTINAL: Abdomen soft, non-tender, nondistended. Umbilical hernia. Bowel sounds present. GENITOURINARY: Without palpable bladder distension. MUSCULOSKELETAL: Extremities without clubbing, cyanosis. No mottling or clubbing. NEUROLOGICAL: Awake and alert. Motor and sensory grossly within normal limits. Follows commands. Moves all extremities. PSYCHIATRIC: Calm. pleasant and cooperative. . Diagnostic Tests Laboratory Laboratory Tests Test 02/07/17 04:55 Blood Urea Nitrogen 42 MG/DL (7-18) Creatinine 4.81 MG/DL (0.60-1.30) Random Glucose 107 MG/DL (74-106) Calcium Level 9.0 MG/DL (8.5-10.1) Sodium Level 137 MEQ/L (136-145) Potassium Level 5.0 MEQ/L (3.5-5.1) Chloride Level 98 MEQ/L (98-107) Carbon Dioxide Level 24.9 MEQ/L (21.0-32.0) Anion Gap 14 MEQ/L (5-15) Estimat Glomerular Filtration Rate 12 ML/MIN (>89) Result Diagram: 02/06/17 0530 02/07/17 8771 Assessment and Plan Disease Oriented Problem List: (1) ESRD (end stage renal disease) (2) Congestive heart failure (3) Cardiomyopathy (4) Pulmonary edema (5) Physical deconditioning (6) Coronary artery disease Symptom Scale: (1) Dyspnea 0-10 Scale: Unable to quantify Comment: Secondary to CHF, end-stage renal disease. (2) Pain 0-10 Scale: 0 Comment: Secondary to umbilical hernia. Pertinent Non-Medical Issues Psychosocial: Patient originally from [place]. Lived in [place] for approximately 20 years. Moved to [place] 10 years ago. Patient is , has 3 children. 2 daughters Juhi and Aneta. Son 2 days ago secondary to EtOH use and abuse. 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 Spiritual: No scientology affiliation. Legal: No advance directives completed. Ethical issues impacting care: No ethical issues identified. . Important Contacts Daughter Juhi Jim Daughter Aneta Rob -pending contact number Patient's sister Daria Virgen . Prognosis Mr. vann is a 66-year-old male with a medical history significant for end- stage renal disease -on hemodialysis for the past 6 years, significant cardiac history to include cardiac stents x 5, pacer/AICD and 2 prior MIs, diabetes mellitus, liver disease. Patient presented to ED on 02/03/17 via EMS for evaluation of shortness of breath. Patient admitted secondary to CHF, end- stage renal disease requiring hemodialysis. Patient's overall prognosis is fair poor for a prolonged survival given end-stage renal disease, non- compliance with hemodialysis, significant cardiac history, multiple other comorbidities, progressive decline, profound physical deconditioning. Patient appears hospice appropriate should he elects to comfort directed care. . Code Status: No Code Plan * CODE STATUS: No code. DNR/DNI. Community DNR signed. Family in agreement with DNR status. * HEALTHCARE DECISION-MAKING: Patient participating in medical decision-making. He appears to have a fair understanding of his complicated clinical condition and overall poor prognosis, however, unclear if patient fully understands the risks versus burdens of treatment options. No advance directives completed. Patient is . As per [place] statute, healthcare proxy decision-making falls to the majority of patient's children for which he has 2. Palliative care recommends shared decision-making with daughters Juhi and Aneta given the above. * GOALS OF CARE: Patient electing to continue aggressive management short of no code. Patient verbalized wishing to continue hemodialysis and pursuing umbilical hernia repair, he feels that he is not ready for hospice as of yet. Patient requiring long-term placement secondary to higher level of needs, case management working on dispo. Patient's family supportive of patient's wishes. * SYMPTOMS: = Dyspnea: Secondary to CHF, end-stage renal disease. Currently tolerating O2 via nasal cannula. Receiving hemodialysis. Nephrology following. =Pain: Secondary to umbilical hernia. Percocet available as needed. Has required 3 doses in the past to 24 hours. Morphine available as needed. Palliative care recommends discontinuation of morphine due to high risk for neurotoxicity in the setting of ESRD. = Bowel: Exacerbated by opioid use and bedrest. Senokot, milk of magnesia, lactulose and Dulcolax suppository available as needed. * Palliative care contact information has been provided to patient and family. * Palliative care will continue to follow-up for further clarifications of goals of care as patient's clinical course continues to evolve. . Time Spent Total Floor Time (mins): 28 (Total time to include review medical records, physical exam, assistance with completion of [place] DO NOT RESUSCITATE order, telephone conversation with patient's daughter in private social work assistant Danae Reza. ) >50% Counseling/Coord of Care: Yes Attestation To help prompt me to consider important information that might be impacting today's encounter and assessment, information from prior notes written by myself or my colleagues may have been "brought forward" into today's note. My signature on this note, however, is an attestation that I personally performed the exam, history, and/or decision-making noted today, and, unless otherwise indicated, the interactions with patient, family, and staff as well as the review of records all occurred today. I also attest that the listed assessment and stated plan reflect my best clinical judgment today based on the combination of historical information, prior notes, and today's exam/ interactions. When time spent is documented, it refers only to time spent today by the signer, or if indicated, combined time spent today by collaborating physician/nurse practitioner. Lindsay Brock Feb 09, 2017 14:00
--- NOTE | 2017-02-09 14:47 | HHI.NPPN ---
Subjective History of Present Illness 66 year old male with CHF/AICD , ESRD Additional Remarks seen at HD attempted HD but AVF clotted Objective Data Data Vital Signs Date Time Temp Pulse Resp B/P (MAP) Pulse Ox O2 Delivery O2 Flow Rate FiO2 02/09/17 12:00 97.9 116 18 102/74 (83) 96 02/09/17 08:00 96.6 115 18 96/76 (83) 97 02/09/17 00:00 96.7 116 18 130/66 (87) 96 02/08/17 20:26 114 02/08/17 20:00 97.1 116 18 96/75 (82) 99 02/08/17 16:00 96.7 116 20 95/68 (77) 92 -: 02/06/17 0530 02/07/17 0455 Physical Exam General Appearance: Well Developed Pulmonary Resp Exam: Crackles, Decreased Bases Cardiology CV Exam: Irregular Gastrointestinal/Abdomen GI Exam: Soft, Non-Tender Extremeties Extremities Exam: Trace Edema Neurologic Neuro Exam: Alert, Awake, Oriented Assessment/Plan Problem List: (1) ESRD (end stage renal disease) ICD Codes: N18.6 - End stage renal disease Status: Acute Plan: Patient had hemodialysis attempted AVF poor flow clots, need intervention with Thrombectomy angioplasty follow with Dr. Amado patient not ready for hospice dc plans per Dr. Priest apparently had a fall with no injury HD again in am (2) Pulmonary edema ICD Codes: J81.1 - Chronic pulmonary edema Status: Acute Plan: Patient changed his mind about hospice Problem Qualifiers (1) Pulmonary edema: Qualified Codes: J81.0 - Acute pulmonary edema Ara Suarez MD Feb 09, 2017 14:47
[2017-02-09] MEDS: LORazepam 2 MG TAB PO PRN (15:39)
[2017-02-09 16:00] VITALS: BP 100/75; PULSE 118; RESP 20; TEMP 96.9; O2SAT 93
[2017-02-09 20:00] VITALS: BP 104/71; PULSE 96; RESP 17; TEMP 97.2; O2SAT 94
[2017-02-10] VITALS (7 sets, daily range): BP systolic 94–119; BP diastolic 65–88; PULSE 72–119; RESP 17–20; TEMP 96.6–98.6; O2SAT 92–95
[2017-02-10] MEDS: INSULIN ASPART SUPPLEMENTAL SCALE SQ SCH ×4 (08:00→21:00)
[2017-02-10 08:13] LABS: AUTOMATED NEUTROPHIL # 7.5 TH/MM3 (1.8-7.7); BASOPHIL # 0.1 TH/MM3 (0-0.2); BASOPHIL % 1.3 % (0.0-2.0); EOSINOPHIL # 0.5 TH/MM3 (0-0.4); EOSINOPHIL % 4.4 % (0.0-4.0); HEMO FLAGS DIFF FINAL; LYMPH % 8.2 % (9.0-44.0); LYMPHOCYTE # 0.9 TH/MM3 (1.0-4.8); MEAN CELL VOLUME 94.1 FL (80.0-100.0); MEAN CORPUSCULAR HEMOGLOBIN 30.8 PG (27.0-34.0); MEAN CORPUSCULAR HGB CONC 32.8 % (32.0-36.0); NEUT % 70.1 % (16.0-70.0); PLATELET COUNT 160 TH/MM3 (150-450); RED BLOOD COUNT 4.25 MIL/MM3 (4.50-5.90); RED CELL DISTRIBUTION WIDTH 16.6 % (11.6-17.2); WHITE BLOOD COUNT 10.7 TH/MM3 (4.0-11.0)
[2017-02-10] MEDS: PANTOPRAZOLE SOD 40 MG DELAYED RELEASE TAB PO SCH (08:21)
[2017-02-10] MEDS: CARVEDILOL 6.25 MG TAB PO SCH ×2 (08:21→21:00)
[2017-02-10] MEDS: DOCUSATE SODIUM 50 MG/SENNA 8.6 MG TAB PO SCH ×2 (08:21→21:37)
[2017-02-10] MEDS: SODIUM CHLORIDE 0.9% FLUSH 10 ML FLUSH IV FLUSH SCH ×2 (08:22→21:38)
[2017-02-10] MEDS: LORazepam 2 MG TAB PO PRN (08:30)
[2017-02-10 08:50] LABS: BICARBONATE 21.9 MEQ/L (21.0-32.0); POTASSIUM 4.8 MEQ/L (3.5-5.1)
[2017-02-10] MEDS ORDERED: STERILE WATER FOR INJECTION 10 ML VIAL ONE ×2 (11:05→12:10)
[2017-02-10] MEDS ORDERED: MIDAZOLAM HCL 2 MG/2 ML VIAL ONE ×2 (11:05→12:27)
[2017-02-10] MEDS ORDERED: ALTEPLASE RECOMBINANT 2 MG VIAL I-ARTERIAL ONE (12:00)
[2017-02-10] MEDS ORDERED: HEPARIN SODIUM - IV 10,000 UNITS/10 ML VIAL ONE (12:10)
--- NOTE | 2017-02-10 12:42 | PD.RAD ---
Post Procedure Progress Note Pre Procedure Diagnosis: (1) Arteriovenous fistula occlusion (2) ESRD (end stage renal disease) Post Procedure Diagnosis: (1) Arteriovenous fistula occlusion (2) ESRD (end stage renal disease) Procedure Date: Feb 10, 2017 Supervising Radiologist: Matthew Slater Estimated blood loss: 10cc Anesthesia: Local, Conscious Sedation Plan of Activity Patient to Unit: Nursing Unit Patient Condition: Poor Additional Comments: Left upper extremity AV fistula declotted without difficulty. Excellent flow post procedure. Full dictated report to follow See PACS Report for procedural detail/treatment Matthew Slater MD Feb 10, 2017 12:42
[2017-02-10] MEDS ORDERED: IODIXANOL 320 MG/ML 50 ML VIAL (for RAD SPEC) I-ARTERIAL ONE (12:58)
--- NOTE | 2017-02-10 14:18 | RADRPT ---
EXAM DATE/TIME: 02/10/2017 10:51 [facility] COMPARISON: US GUIDED VASCULAR ACCESS, LEFT, February 10, 2017, 0:00. INDICATIONS : Patient with clotted left arm AV fistula in need of angioplasty. MEDICAL HISTORY : ESRD on hemodialysis, CHF, Hepatitis C, Liver disease, Diabetes, Anemia, Cardiovascular disease, Pulm onary edema, [place] SURGICAL HISTORY : Cholecystectomy, AICD, Left upper extremity AV fistula, Cardiac stents X5, Port placement ENCOUNTER: Initial ACUITY: 1 week PAIN SCORE: 10/10 LOCATION: Low back FLUORO TIME: 15.3 minutes IMAGE SERIES: 12 ACCESS SITE: Left AV fistula X2 SEDATION TIME: 60 minutes CONTRAST: 1.) 75 cc Visipaque (iodixanol) MEDICATION(S): 1.) 2 mg midazolam (Versed) IV 2.) 100 mcg fentanyl (Sublimaze) IV DEVICE(S): 1.) Left AV fistula PNEUMATIC TUBE OPERATOR balloon Grants Manager [id number] 2.) Left AV fistula PNEUMATIC TUBE OPERATOR balloon Grants Manager [id number] 3.) Left AV fistula Syvek PROCEDURE : 1. Ultrasound guided puncture of the arterial limb of the fistula. 2. Ultrasound guided puncture of the venous limb of the fistula. 3. Evaluation of dialysis fistula. 4. Angioplasty of the proximal venous outflow. 5. Angioplasty of the arterial anastomosis. 6. Upper extremity venogram. 7. Superior venacavogram. 8. Conscious sedation with continuous EKG and oximetry monitoring. The risks, benefits and alternatives to the procedure were explained and verbal and written consent w as obtained. The site was prepped in sterile fashion. Full sterile technique was used, including ca p, mask, sterile gloves and gown and a large sterile sheet. Hand hygiene and 2% chlorhexidine and/or betadine/alcohol prep was utilized per protocol for cutaneous antisepsis. Sterile gel and sterile p robe cover were utilized for ultrasound guidance. The skin and subcutaneous tissues were infiltrated with local anesthetic solution With ultrasound and fluoroscopic guidance the arterial limb of the fistula was punctured directed tow michael the venous outflow. Evaluation of the venous outflow in the left upper extremity was performed. Results: The brachial and basilic veins are widely patent. The axillary vein, subclavian vein and SVC are wide ly patent. The catheter was pulled back. A small amount contrast was placed into the proximal fistula. This was occluded. 5 mg of TPA was placed in the proximal outflow vein. The proximal outflow vein was accessed directed towards the arterial anastomosis. A 0.035 wire and glide catheter were advanced across the arterial anastomosis. The arterial anastomosis was highly stenotic and occluded. This was treated wit h a 4 mm angioplasty balloon. Followup angioplasty to 5 mm was performed as well. The arterial anastomosis and outflow venous system was evaluated. There was fairly brisk flow through the fistula. There was some narrowing of the proximal outflow vein however this was easily as large as the inflow artery which was via the radial. There was good flow through the fistula with a palpabl e thrill. The patient tolerated the procedure well and there were no complications. Conscious sedation was per formed with the prescribed dosages and duration as above in the presence of an independent trained ra diology nurse to assist in the monitoring of the patient. EKG and oximetry remained stable throughou t the procedure. CONCLUSION: 1. Successful declotting of the patient's occluded arteriovenous fistula in the left wrist. Post proc edure, there was good flow evident. Matthew Slater MD on February 10, 2017 at 14:11 Board Certified Radiologist. This report was verified electronically.
--- NOTE | 2017-02-10 15:42 | HHI.NPPN ---
Subjective History of Present Illness 66 year old male with CHF/AICD , ESRD Additional Remarks seen at HD Objective Data Data Vital Signs Date Time Temp Pulse Resp B/P (MAP) Pulse Ox O2 Delivery O2 Flow Rate FiO2 02/10/17 12:50 97.5 117 20 107/88 (94) 92 02/10/17 08:00 96.6 119 18 119/83 (95) 92 02/10/17 00:00 98.6 72 17 100/70 (80) 94 02/09/17 20:00 97.2 96 17 104/71 (82) 94 02/09/17 16:00 96.9 118 20 100/75 (83) 93 -: 02/10/17 0727 02/10/17 0727 Physical Exam General Appearance: Well Developed Pulmonary Resp Exam: Crackles, Decreased Bases Cardiology CV Exam: Irregular Gastrointestinal/Abdomen GI Exam: Soft, Non-Tender Extremeties Extremities Exam: Trace Edema Neurologic Neuro Exam: Alert, Awake, Oriented Assessment/Plan Problem List: (1) ESRD (end stage renal disease) ICD Codes: N18.6 - End stage renal disease Status: Acute Plan: Patient seen at hemodialysis AVF declotted working well UF 1/2 to [address] Amado patient not ready for hospice dc plans per Dr. Priest Confused tired HD again in am (2) Pulmonary edema ICD Codes: J81.1 - Chronic pulmonary edema Status: Acute Plan: Patient changed his mind about hospice Problem Qualifiers (1) Pulmonary edema: Qualified Codes: J81.0 - Acute pulmonary edema Ara Suarez MD Feb 10, 2017 15:42
--- NOTE | 2017-02-10 17:26 | HHI.PR ---
Subjective Remarks Follow-up 66-year-old with PMH ESRD, CHF, pulmonary edema, who presented to the ED after progressive SOB. Patient is non-compliant with cardiology follow up. Patient had clotting of right arm AVF and underwent IR declotting today. He is seen while having HD in the dialysis department. Patient is sleepy but does answer questions and moves all extremities spontaneously. He is oriented to self , denies SOB, chest pain, nausea, vomiting or diarrhea. He does not appear to be in any acute distress. Objective Vitals Vital Signs Date Time Temp Pulse Resp B/P (MAP) Pulse Ox O2 Delivery O2 Flow Rate FiO2 02/10/17 13:50 110 20 102/66 (78) 92 02/10/17 13:20 117 20 94/65 (75) 92 02/10/17 13:05 115 20 101/66 (78) 95 02/10/17 12:50 97.5 117 20 107/88 (94) 92 02/10/17 08:00 96.6 119 18 119/83 (95) 92 02/10/17 00:00 98.6 72 17 100/70 (80) 94 02/09/17 20:00 97.2 96 17 104/71 (82) 94 I/O 02/09/17 02/09/17 02/09/17 02/10/17 02/10/17 02/10/17 07:00 15:00 23:00 07:00 15:00 23:00 Intake Total 0 ml 480 ml 0 ml Balance 0 ml 480 ml 0 ml Intake Oral 0 ml 480 ml 0 ml # Voids 0 0 2 # Bowel Movements 0 0 Result Diagram: 02/10/17 0727 02/10/17 0727 Imaging Last Impressions Shunt Study 02/10/17 0000 Signed Impressions: Service Date/Time: Friday, February 10, 2017 10:51 - CONCLUSION: 1. Successful declotting of the patient's occluded arteriovenous fistula in the left wrist. Post procedure, there was good flow evident. Matthew Slater MD Chest X-Ray 02/03/17 1301 Signed Impressions: Service Date/Time: Friday, February 03, 2017 12:17 - CONCLUSION: Intra-alveolar pulmonary edema. Chico Ray Jr., MD Objective Remarks GENERAL: Drowsy but will wake up and answer questions. NECK: Trachea midline. CARDIOVASCULAR: Regular rate and rhythm. RESPIRATORY: No accessory muscle use. clear to auscultation decrease at the base. GASTROINTESTINAL: Abdomen soft, non-tender, nondistended. MUSCULOSKELETAL: Extremities without edema. No obvious deformities. Left AVF with HD in progress. NEUROLOGICAL: Appears sleepy. No obvious cranial nerve deficits. Normal speech. Procedures Hemodialysis A/P Problem List: (1) Noncompliance with renal dialysis ICD Code: Z91.15 - Patient's noncompliance with renal dialysis (2) Fluid overload ICD Code: E87.70 - Fluid overload, unspecified (3) ESRD (end stage renal disease) ICD Code: N18.6 - End stage renal disease Status: Acute (4) Pulmonary edema ICD Code: J81.1 - Chronic pulmonary edema Status: Acute (5) New onset atrial flutter ICD Code: I48.92 - Unspecified atrial flutter Status: Acute Assessment and Plan Patient is a 66-year-old male who presents to the emergency department via EMS for evaluation of shortness of breath. Reports of progressive worsening dyspnea. Patient reports history of end-stage renal disease and liver disease and history of 5 cardiac stents and diabetes and pacemaker AICD. End-stage renal disease with noncompliance with fluid intake and dialysis - Nephrology consulted and following. - Underwent HD today, after AVF was declotted by IR, continue HD per nephrology. - Palliative care following, has spoke to family who are not yet ready for Hospice. Family did agree to make patient a DNR, no code status. - CM assisting w placement CHF with reduced EF is 25-30%. - Secondary to non-compliance with cardiology follow up as well as medications. - Continue fluid restrict at 1500ml/day. avoid IVFs - Continue home Coreg. Confusion/drowsy, acute Possibly secondary conscious sedation from IR given for procedure combined with elevated creatinine and BUN from missing HD yesterday -Currently undergoing HD now, monitor for mental status changes. Hyperkalemia resolved post HD. nephrology following. Pulmonary edema due to noncompliance. - HD today - Avoid IVFs, fluid restrictions. Hypertension/A. fib/flutter by history - Continue on Coreg VTE SCD's and TEDs Problem Qualifiers (1) Pulmonary edema: Qualified Codes: J81.0 - Acute pulmonary edema Bon Austin Feb 10, 2017 17:26
[2017-02-11] VITALS: BP 98/62; PULSE 108; RESP 17; TEMP 96.2; O2SAT 94
[2017-02-11 06:13] LABS: AUTOMATED NEUTROPHIL # 5.6 TH/MM3 (1.8-7.7); BASOPHIL # 0.2 TH/MM3 (0-0.2); BASOPHIL % 2.3 % (0.0-2.0); EOSINOPHIL # 0.2 TH/MM3 (0-0.4); EOSINOPHIL % 2.6 % (0.0-4.0); HEMATOCRIT 36.7 % (39.0-51.0); HEMO FLAGS DIFF FINAL; LYMPH % 5.9 % (9.0-44.0); LYMPHOCYTE # 0.4 TH/MM3 (1.0-4.8); MEAN CORPUSCULAR HEMOGLOBIN 31.2 PG (27.0-34.0); MEAN CORPUSCULAR HGB CONC 33.2 % (32.0-36.0); MONO % 11.2 % (0.0-8.0); PLATELET COUNT 128 TH/MM3 (150-450); RED BLOOD COUNT 3.91 MIL/MM3 (4.50-5.90); WHITE BLOOD COUNT 7.2 TH/MM3 (4.0-11.0)
[2017-02-11 06:42] LABS: ALKALINE PHOSPHATASE 83 U/L (45-117); ALT (GPT) 18 U/L (12-78); ANION GAP 11 MEQ/L (5-15); AST (GOT) 20 U/L (15-37); BICARBONATE 26.7 MEQ/L (21.0-32.0); BLOOD UREA NITROGEN 51 MG/DL (7-18); CHLORIDE 96 MEQ/L (98-107); GLOMERULAR FILTRATION RATE 11 ML/MIN (>89); POTASSIUM 4.3 MEQ/L (3.5-5.1); SODIUM (NA) 134 MEQ/L (136-145); TOTAL BILIRUBIN ADULT 1.1 MG/DL (0.2-1.0)
[2017-02-11 08:00] VITALS: BP 99/71; PULSE 116; RESP 15; TEMP 96.6; O2SAT 93
[2017-02-11] MEDS: INSULIN ASPART SUPPLEMENTAL SCALE SQ SCH ×3 (08:00→16:13)
[2017-02-11] MEDS: PANTOPRAZOLE SOD 40 MG DELAYED RELEASE TAB PO SCH (08:35)
[2017-02-11] MEDS: CARVEDILOL 6.25 MG TAB PO SCH (08:38)
[2017-02-11] MEDS: SODIUM CHLORIDE 0.9% FLUSH 10 ML FLUSH IV FLUSH SCH (08:41)
[2017-02-11 10:07] VITALS: O2SAT 93
[2017-02-11] MEDS: EPOETIN ALFA 10,000 UNITS/ML VIAL IV PUSH PRN (11:35)
--- NOTE | 2017-02-11 11:49 | HHI.NPPN ---
Subjective History of Present Illness 66 year old male with CHF/AICD , ESRD Additional Remarks seen at HD Objective Data Data Vital Signs Date Time Temp Pulse Resp B/P (MAP) Pulse Ox O2 Delivery O2 Flow Rate FiO2 02/11/17 10:07 93 02/11/17 08:00 96.6 116 15 99/71 (80) 93 02/11/17 00:00 96.2 108 17 98/62 (74) 94 02/10/17 20:00 96.8 116 18 96/67 (77) 93 02/10/17 13:50 110 20 102/66 (78) 92 02/10/17 13:20 117 20 94/65 (75) 92 02/10/17 13:05 115 20 101/66 (78) 95 02/10/17 12:50 97.5 117 20 107/88 (94) 92 -: 02/11/17 0425 02/11/17 0425 Physical Exam General Appearance: Well Developed Pulmonary Resp Exam: Crackles, Decreased Bases Cardiology CV Exam: Irregular Gastrointestinal/Abdomen GI Exam: Soft, Non-Tender Extremeties Extremities Exam: Trace Edema Neurologic Neuro Exam: Alert, Awake, Oriented Assessment/Plan Problem List: (1) ESRD (end stage renal disease) ICD Codes: N18.6 - End stage renal disease Status: Acute Plan: Patient seen at hemodialysis AVF declotted working well UF [address] Amado patient not ready for hospice dc plans per Dr. Priest more awake wants to go home HD again in am (2) Pulmonary edema ICD Codes: J81.1 - Chronic pulmonary edema Status: Acute Plan: Patient changed his mind about hospice Problem Qualifiers (1) Pulmonary edema: Qualified Codes: J81.0 - Acute pulmonary edema Ara Suarez MD Feb 11, 2017 11:49
[2017-02-11] MEDS: DOCUSATE SODIUM 50 MG/SENNA 8.6 MG TAB PO SCH (12:47)
[2017-02-11 13:02] VITALS: BP 101/61; PULSE 98; RESP 16; TEMP 96.7; O2SAT 94
--- NOTE | 2017-02-11 14:04 | HHI.PR ---
Subjective Remarks Follow-up 66-year-old with PMH ESRD, CHF, pulmonary edema, who presented to the ED after progressive SOB. Patient is non-compliant with cardiology follow up. Patient seen and examined in room resting in no acute distress. He is more awake and alert today compared to yesterday. He denies any pain, SOB, nausea, or vomiting. Wants to know if he can speak to his daughter. Patient is also concerned that his rent is due today and he will lose his apartment. I asked if anyone has come in to speak to him regarding [facility] as a possibility when discharged, states no one has talked to him. He would like to talk to the shelter case manager about this. Objective Vitals Vital Signs Date Time Temp Pulse Resp B/P (MAP) Pulse Ox O2 Delivery O2 Flow Rate FiO2 02/11/17 13:02 96.7 98 16 101/61 (74) 94 02/11/17 10:07 93 02/11/17 08:00 96.6 116 15 99/71 (80) 93 02/11/17 00:00 96.2 108 17 98/62 (74) 94 02/10/17 20:00 96.8 116 18 96/67 (77) 93 I/O 02/10/17 02/10/17 02/10/17 02/11/17 02/11/17 02/11/17 07:00 15:00 23:00 07:00 15:00 23:00 Intake Total 0 ml 0 ml Output Total 1000 ml Balance 0 ml -1000 ml 0 ml Intake Oral 0 ml 0 ml Hemodialysis 1000 ml # Voids 2 0 Result Diagram: 02/11/17 0425 02/11/17 0425 Objective Remarks GENERAL: Awake answering questions. NECK: Trachea midline. CARDIOVASCULAR: Regular rate and rhythm. RESPIRATORY: No accessory muscle use. clear to auscultation decrease at the base. GASTROINTESTINAL: Abdomen soft, non-tender, nondistended. MUSCULOSKELETAL: Extremities without edema. No obvious deformities. Left AVF + bruit and thrill. NEUROLOGICAL: Moves all extremities spontaneously. No obvious cranial nerve deficits. Normal speech. Procedures Hemodialysis A/P Problem List: (1) Noncompliance with renal dialysis ICD Code: Z91.15 - Patient's noncompliance with renal dialysis (2) Fluid overload ICD Code: E87.70 - Fluid overload, unspecified (3) ESRD (end stage renal disease) ICD Code: N18.6 - End stage renal disease Status: Acute (4) Pulmonary edema ICD Code: J81.1 - Chronic pulmonary edema Status: Acute (5) New onset atrial flutter ICD Code: I48.92 - Unspecified atrial flutter Status: Acute Assessment and Plan Patient is a 66-year-old male who presents to the emergency department via EMS for evaluation of shortness of breath. Reports of progressive worsening dyspnea. Patient reports history of end-stage renal disease and liver disease and history of 5 cardiac stents and diabetes and pacemaker AICD. End-stage renal disease with noncompliance with fluid intake and dialysis - Nephrology consulted and following. - Underwent HD today, removal of 1L, continue HD per nephrology - Palliative care following, has spoke to family who are not yet ready for Hospice. Family did agree to make patient a DNR, no code status. - CM trying to arrange meeting with [facility] staff. CHF with reduced EF is 25-30%. - Secondary to non-compliance with cardiology follow up as well as medications. - Continue fluid restrict at 1500ml/day. avoid IVFs - Continue home Coreg. Hyperkalemia resolved post HD. nephrology following. Pulmonary edema due to noncompliance. - HD today - Avoid IVFs, fluid restrictions. Hypertension/A. fib/flutter by history - Continue on Coreg VTE SCD's and TEDs Discharge Planning CM working on setting up meeting between patient and [facility] staff for placement. Spoke with CM who will try and help facilitate this. Problem Qualifiers (1) Pulmonary edema: Qualified Codes: J81.0 - Acute pulmonary edema Bon Austin Feb 11, 2017 14:04
[2017-02-11 16:00] VITALS: BP 98/68; PULSE 118; RESP 18; TEMP 95.8; O2SAT 94
[2017-02-11] MEDS: LORazepam 2 MG TAB PO PRN (16:08)
--- NOTE | 2017-02-11 17:07 | HHI.DS ---
Discharge Summary Admission Date Feb 03, 2017 at 15:05 Discharge Date: Feb 11, 2017 Admitting Diagnosis ESRD on hemodialysis; hyperkalemia, pulmonary edema, atrial flutter (1) Noncompliance with renal dialysis ICD Code: Z91.15 - Patient's noncompliance with renal dialysis (2) Fluid overload ICD Code: E87.70 - Fluid overload, unspecified (3) ESRD (end stage renal disease) ICD Code: N18.6 - End stage renal disease Status: Acute (4) Pulmonary edema ICD Code: J81.1 - Chronic pulmonary edema Status: Acute (5) New onset atrial flutter ICD Code: I48.92 - Unspecified atrial flutter Status: Acute Procedures Hemodialysis Brief History - From Admission Patient is a 66-year-old male who presents to the emergency department via EMS for evaluation of shortness of breath. He is felt short of breath for at least a month. Has had progressive worsening dyspnea. Patient reports history of end -stage renal disease and liver disease and history of 5 cardiac stents and diabetes and pacemaker AICD. Patient denies any fever, chills, patient denies any chest pain, and states his abdomen is getting distended states he's had a paracentesis and thoracentesis in the past 5-6 months. Patient has been feeling generally weak on 2 L by nasal cannula of oxygen at home supposed to wear 24/7 does not wear it all the time. He states he has not been eating much does not want to have his abdomen get "salcido." Patient is on hemodialysis via a fistula to the left upper extremity. He is supposed to get dialysis on Thursday, , and Thursday but was due to get it today. He Missed a day last week has been poorly compliant with his dialysis Patient states he is considering hospice but not on hospice yet CBC/BMP: 02/11/17 0425 02/11/17 0425 Significant Findings Laboratory Tests Test 02/10/17 07:27 02/11/17 04:25 Red Blood Count 4.25 MIL/MM3 (4.50-5.90) 3.91 MIL/MM3 (4.50-5.90) Neutrophils (%) (Auto) 70.1 % (16.0-70.0) 78.0 % (16.0-70.0) Lymphocytes (%) (Auto) 8.2 % (9.0-44.0) 5.9 % (9.0-44.0) Monocytes (%) (Auto) 16.0 % (0.0-8.0) 11.2 % (0.0-8.0) Eosinophils (%) (Auto) 4.4 % (0.0-4.0) Lymphocytes # (Auto) 0.9 TH/MM3 (1.0-4.8) 0.4 TH/MM3 (1.0-4.8) Monocytes # (Auto) 1.7 TH/MM3 (0-0.9) Eosinophils # (Auto) 0.5 TH/MM3 (0-0.4) Blood Urea Nitrogen 77 MG/DL (7-18) 51 MG/DL (7-18) Creatinine 7.29 MG/DL (0.60-1.30) 5.46 MG/DL (0.60-1.30) Random Glucose 128 MG/DL (74-106) Phosphorus Level 5.7 MG/DL (2.5-4.9) Sodium Level 132 MEQ/L (136-145) 134 MEQ/L (136-145) Chloride Level 96 MEQ/L (98-107) 96 MEQ/L (98-107) Estimat Glomerular Filtration Rate 8 ML/MIN (>89) 11 ML/MIN (>89) Hemoglobin 12.2 GM/DL (13.0-17.0) Hematocrit 36.7 % (39.0-51.0) Platelet Count 128 TH/MM3 (150-450) Basophils (%) (Auto) 2.3 % (0.0-2.0) Albumin 3.2 GM/DL (3.4-5.0) Total Bilirubin 1.1 MG/DL (0.2-1.0) Imaging Last Impressions Shunt Study 02/10/17 0000 Signed Impressions: Service Date/Time: Friday, February 10, 2017 10:51 - CONCLUSION: 1. Successful declotting of the patient's occluded arteriovenous fistula in the left wrist. Post procedure, there was good flow evident. Matthew Slater MD Chest X-Ray 02/03/17 1301 Signed Impressions: Service Date/Time: Friday, February 03, 2017 12:17 - CONCLUSION: Intra-alveolar pulmonary edema. Chico Ray Jr., MD PE at Discharge GENERAL: Awake answering questions. NECK: Trachea midline. CARDIOVASCULAR: Regular rate and rhythm. RESPIRATORY: No accessory muscle use. clear to auscultation decrease at the base. GASTROINTESTINAL: Abdomen soft, non-tender, nondistended. MUSCULOSKELETAL: Extremities without edema. No obvious deformities. Left AVF + bruit and thrill. NEUROLOGICAL: Moves all extremities spontaneously. No obvious cranial nerve deficits. Normal speech. Pt update on day of discharge Follow-up 66-year-old with PMH ESRD, CHF, pulmonary edema, who presented to the ED after progressive SOB. Patient is non-compliant with cardiology follow up. Patient seen and examined in room resting in no acute distress. He is more awake and alert today compared to yesterday. He denies any pain, SOB, nausea, or vomiting. Wants to know if he can speak to his daughter. Patient is also concerned that his rent is due today and he will lose his apartment. I asked if anyone has come in to speak to him regarding [facility] as a possibility when discharged, states no one has talked to him. He would like to talk to the supportive employment case manager about this. Hospital Course 66-year-old male with past medical history of HTN, DM, [id number] disease on HD, CAD with stenting X5 in the past with implanted pacer/AICD, and liver disease who presented to the ED on 02/03 via [facility] for evaluation of progressive SOB for the past month. Patient has a history of being non-compliance. Was admitted and treated for pulmonary edema, echo showed EF 25-30%, BNP on admission was 2901. Patient was seen by nephrology and HD initiated for fluid overload. At one point patient during his dialysis treatment patient voiced wanting to sign out AMA and going home with Hospice, partial treatment was provided. Patient later changed his mind and Palliative care was consulted to cookie mixer helper in treatment plan. Palliative care met with daughters who decided to make patient a DNR. During patients hospitalization he also underwent declotting of AV fistula for continuation of HD. He is now hemodynamically stable on room air with good oxygen saturation and no complaints of SOB. Case management has spoke to daughter who is agreeable with discharging patient to [facility]. He will continue HD as outpatient. Pt Condition on Discharge: Stable Discharge Disposition: Discharge to SNF Discharge Time: <= 30 minutes Discharge Instructions DIET: Follow Instructions for: Renal Failure Diet Fluid Restrictions: 1500 ml/day Activities you can perform: Regular-No Restrictions Follow up Referrals: Appointment for Follow Up - 1 Week with Ara Suarez MD Cardiology - 1 Week Nephrology - 02/09/17 PCP Follow-up - 2 Weeks Bon Austin Feb 11, 2017 17:06
--- NOTE | 2017-02-11 17:22 | HHI.DCPOC ---
Discharge Care Plan Diagnosis: (1) CHF (NYHA class IV, ACC/AHA stage D) (2) ESRD (end stage renal disease) Your Health Problems Are: Shortness of Breath Goals to Promote Your Health * To prevent worsening of your condition and complications * To maintain your health at the optimal level Directions to Meet Your Goals Take your medications as prescribed Follow your dietary instruction Follow activity as directed Keep your appointments as scheduled Take your immunizations and boosters as scheduled If your symptoms worsen call your PCP, if no PCP go to Urgent Care Center or Emergency Room Smoking is Dangerous to Your Health. Avoid second hand smoke Call the 24-hour hour crisis hotline for domestic abuse at Bon Austin Feb 11, 2017 17:22
== END 2017-02-11 18:42 | DRG 628 ==
LOC: NEPE 12:48 → NEDA 15:05 → NEDH 15:30 → NEDA 15:31 → N07A 18:28
PROVIDERS: ADMIT Hospitalist; ATTEND Hospitalist
PROC: 5A1D70Z Performance of Urinary Filtration, Intermittent, Less than 6 Hours Per Day (ICD-10-PCS; 2017-02-04)
PROC: 037Y3ZZ Dilation of Upper Artery, Percutaneous Approach (ICD-10-PCS; principal; 2017-02-10)
PROC: 057Y3ZZ Dilation of Upper Vein, Percutaneous Approach (ICD-10-PCS; 2017-02-10)
PROC: B51W1ZZ Fluoroscopy of Dialysis Shunt/Fistula using Low Osmolar Contrast (ICD-10-PCS; 2017-02-10)
PROC: B5181ZZ Fluoroscopy of Superior Vena Cava using Low Osmolar Contrast (ICD-10-PCS; 2017-02-10)
PROC: 3E03317 Introduction of Other Thrombolytic into Peripheral Vein, Percutaneous Approach (ICD-10-PCS; 2017-02-10)
DX: E87.70 Fluid overload, unspecified (principal); N18.6 End stage renal disease; I13.2 Hypertensive heart and chronic kidney disease with heart failure and with stage 5 chronic kidney disease, or end stage renal disease; I42.9 Cardiomyopathy, unspecified; T82.868A Thrombosis due to vascular prosthetic devices, implants and grafts, initial encounter; I95.9 Hypotension, unspecified; E11.22 Type 2 diabetes mellitus with diabetic chronic kidney disease; I48.92 Unspecified atrial flutter; I50.9 Heart failure, unspecified; E87.5 Hyperkalemia; F41.9 Anxiety disorder, unspecified; F32.9 Major depressive disorder, single episode, unspecified; E87.1 Hypo-osmolality and hyponatremia; K76.9 Liver disease, unspecified; G89.29 Other chronic pain; Y82.8 Other medical devices associated with adverse incidents; I25.10 Atherosclerotic heart disease of native coronary artery without angina pectoris; K42.9 Umbilical hernia without obstruction or gangrene; W19.XXXA Unspecified fall, initial encounter; Z66 Do not resuscitate; Z91.19 Patient's noncompliance with other medical treatment and regimen; Z91.15 Patient's noncompliance with renal dialysis; Z99.2 Dependence on renal dialysis; Z95.810 Presence of automatic (implantable) cardiac defibrillator; Z95.5 Presence of coronary angioplasty implant and graft; I25.2 Old myocardial infarction; Z99.81 Dependence on supplemental oxygen
CPT/HCPCS: 36905; 71010; 76937; 80048; 80053; 80069; 82550; 82948; 83036; 83735; 83880; 84100; 84439; 84443; 84484; 85025; 85610; 85730; 90935; 93005; 93306; 96374; 96375; 99152; 99153; C1725; C1769; C1887; C1894; J1644; J1815; J2150; J2250; J2997; J3010; J7030; J7050; Q4081; Q9967

== ENCOUNTER 2017-03-17 05:19 | Emergency (ER) | payer MEDICARE, MEDICAID ==
[~2017-03-17] VITALS: Ht 165.1 cm; Wt 70.0 kg
[~2017-03-17 05:19] MED LIST changes: -AMLO10TA2 PO; +CARV6.252 PO; +NORC5TAB PO
[2017-03-17 05:22] VITALS: BP 126/81; PULSE 111; RESP 20; TEMP 98.2; O2SAT 95; O2SAT 98
[2017-03-17] MEDS ORDERED: ONDANSETRON HCL 4 MG/2 ML VIAL IV PUSH ONE (05:30)
[2017-03-17] MEDS ORDERED: MORPHINE SULFATE 2 MG/ML INJ IV PUSH ONE (05:30)
[2017-03-17 05:36] VITALS: RESP 16
--- NOTE | 2017-03-17 05:36 | PD ---
HPI Chief Complaint: Abdominal Pain Time Seen by Provider: 05:25 Travel History International Travel<30 days: No Contact w/Intl Traveler<30days: No Traveled to known affect area: No History of Present Illness HPI 66-year-old male complains of abdominal pain. Patient states that he has history of recurrent abdominal pain and the pain is worse tonight. Patient denies any nausea vomiting. Patient states that he has intermittent diarrhea. Patient denies any blood or mucus in the stool. Patient has history end-stage renal disease on dialysis. Patient states that he missed 2 dialysis appointment recently. Patient has history of noncompliance with renal dialysis in the past. Patient supposed to get dialysis Thursday and Thursday. Patient has history of pulmonary edema, atrial flutter, CAD status post stent placement, diabetes, pacemaker placement/AICD placement. PFSH Past Medical History Anemia: Yes Arthritis: No Asthma: No Anxiety: Yes Depression: No Heart Rhythm Problems: Yes (Pt. has pacemaker with defibrillator ) Cancer: No Cardiac Catheterization: Yes (stents X 5) Cardiovascular Problems: Yes High Cholesterol: No Chest Pain: No Congestive Heart Failure: Yes COPD: No Cerebrovascular Accident: No Diabetes: Yes Dialysis: Yes Endocrine: Yes Gastrointestinal Disorders: Yes (RELUX, DIVERTICULOSIS) GERD: Yes Genitourinary: Yes Hepatitis: No Hiatal Hernia: No Hypertension: Yes Immune Disorder: No Kidney Stones: No Musculoskeletal: Yes Neurologic: Yes Psychiatric: Yes Reproductive: No Respiratory: Yes Migraines: No Myocardial Infarction: Yes Renal Failure: Yes (ESRD) Seizures: No Sleep Apnea: No Thyroid Disease: No Ulcer: Yes Past Surgical History Abdominal Surgery: Yes (gallbladder) AICD: Yes Arteriovenous Shunt: No Body Medical Devices: LEFT ARM FISTULA Cardiac Surgery: Yes (Cardiac cath with 5 stents, pacemaker with defibrillator) Cholecystectomy: Yes Ear Surgery: No Endocrine Surgery: No Eye Surgery: Yes (Cataracts removed from Left eye) Genitourinary Surgery: No Gynecologic Surgery: No Insulin Pump: No Joint Replacement: No Oral Surgery: Yes (Teeth removed) Pacemaker: No Thoracic Surgery: No Other Surgery: Yes (LUE fistula and R port) Social History Alcohol Use: No Tobacco Use: No Substance Use: No Allergies-Medications (Allergen,Severity, Reaction): Coded Allergies: penicillin G (Verified Allergy, Severe, "WENT CRAZY" - NOT SURE OF REACTION, 03/17/17) Reported Meds & Prescriptions Reported Meds & Active Scripts Active Carvedilol 6.25 Mg Tab 6.25 Mg PO BID [place] (Hydrocodone-Acetaminophen) 5 Mg-325 Mg Tab 1 Tab PO BID PRN Ativan (Lorazepam) 2 Mg Tab 2 Mg PO DAILY PRN Reported Protonix (Pantoprazole Sodium) 40 Mg Tab 1 Tab PO DAILY Review of Systems General / Constitutional: No: Fever Eyes: No: Visual changes HENT: No: Headaches Cardiovascular: No: Chest Pain or Discomfort Respiratory: No: Shortness of Breath Gastrointestinal: Positive: Abdominal Pain Genitourinary: No: Dysuria Musculoskeletal: No: Pain Skin: No Rash Neurologic: No: Weakness Psychiatric: No: Depression Endocrine: No: Polydipsia Hematologic/Lymphatic: No: Easy Bruising Physical Exam Narrative GENERAL: Well-nourished, well-developed patient. SKIN: Focused skin assessment warm/dry. HEAD: Normocephalic. EYES: No scleral icterus. No injection or drainage. NECK: Supple, trachea midline. No JVD or lymphadenopathy. CARDIOVASCULAR: Regular rate and rhythm without murmurs, gallops, or rubs. RESPIRATORY: Breath sounds equal bilaterally. No accessory muscle use. Patient has mild diffuse rhonchi bilaterally. No wheezes. GASTROINTESTINAL: Abdomen soft, moderately distended. Patient has moderate diffuse tenderness over the abdomen. No rebound tenderness. MUSCULOSKELETAL: No cyanosis, or edema. BACK: Nontender without obvious deformity. No CVA tenderness. Neurologic exam normal. Data Data Last Documented VS Vital Signs Date Time Temp Pulse Resp B/P (MAP) Pulse Ox O2 Delivery O2 Flow Rate FiO2 03/17/17 05:48 18 03/17/17 05:22 98.2 111 126/81 (96) 98 Orders Orders Electrocardiogram (03/17/17 05:28) Complete Blood Count With Diff (03/17/17 05:28) Comprehensive Metabolic Panel (03/17/17 05:28) Prothrombin Time / Inr (Pt) (03/17/17 05:28) Act Partial Throm Time (Ptt) (03/17/17 05:28) Lipase (03/17/17 05:28) Magnesium (Mg) (03/17/17 05:28) Phosphorus (Po4) (03/17/17 05:28) Chest, Single Ap (03/17/17 05:28) Ct Abd/Pel W/O Iv Contrast (03/17/17 05:28) Iv Access Insert/Monitor (03/17/17 05:28) Ecg Monitoring (03/17/17 05:28) Oximetry (03/17/17 05:28) Morphine Inj (Morphine Inj) (03/17/17 05:30) Ondansetron Inj (Zofran Inj) (03/17/17 05:30) Potassium, Serum (K) (03/17/17 06:36) Labs Laboratory Tests Test 03/17/17 05:45 03/17/17 06:20 03/17/17 06:35 White Blood Count 7.9 TH/MM3 Red Blood Count 4.17 MIL/MM3 Hemoglobin 13.0 GM/DL Hematocrit 39.6 % Mean Corpuscular Volume 94.8 FL Mean Corpuscular Hemoglobin 31.1 PG Mean Corpuscular Hemoglobin Concent 32.8 % Red Cell Distribution Width 17.3 % Platelet Count 115 TH/MM3 Mean Platelet Volume 9.4 FL Neutrophils (%) (Auto) 72.6 % Lymphocytes (%) (Auto) 11.0 % Monocytes (%) (Auto) 12.5 % Eosinophils (%) (Auto) 2.7 % Basophils (%) (Auto) 1.2 % Neutrophils # (Auto) 5.7 TH/MM3 Lymphocytes # (Auto) 0.9 TH/MM3 Monocytes # (Auto) 1.0 TH/MM3 Eosinophils # (Auto) 0.2 TH/MM3 Basophils # (Auto) 0.1 TH/MM3 CBC Comment DIFF FINAL Differential Comment Blood Urea Nitrogen 59 MG/DL Creatinine 6.18 MG/DL Random Glucose 145 MG/DL Total Protein 7.2 GM/DL Albumin 3.0 GM/DL Calcium Level 7.9 MG/DL Phosphorus Level 5.4 MG/DL Magnesium Level 1.8 MG/DL Alkaline Phosphatase 75 U/L Aspartate Amino Transf (AST/SGOT) 27 U/L Alanine Aminotransferase (ALT/SGPT) 20 U/L Total Bilirubin 0.8 MG/DL Sodium Level 138 MEQ/L Potassium Level 5.8 MEQ/L Chloride Level 104 MEQ/L Carbon Dioxide Level 24.4 MEQ/L Anion Gap 10 MEQ/L Estimat Glomerular Filtration Rate 9 ML/MIN Lipase 117 U/L Prothrombin Time 15.8 SEC Prothromb Time International Ratio 1.6 RATIO Activated Partial Thromboplast Time 30.8 SEC [facility] Medical Decision Making Medical Screen Exam Complete: Yes Emergency Medical Condition: Yes Medical Record Reviewed: Yes Interpretation(s) 6:33 AM. Chest x-ray showed pulmonary edema. Unchanged from previous chest x- ray. Patient has history of chronic pulmonary edema. CBC with WBC 7.9. Hemoglobin 13.0 hematocrit 39.6. Platelet 115. Potassium 5.8. BUN 59. Creatinine 6.18. GFR 9. Glucose 145. Last Impressions Chest X-Ray 03/17/17527 Signed Impressions: Service Date/Time: Friday, March 17, 2017 05:33 - CONCLUSION: Pulmonary edema with small effusions. Appearance is similar to the prior study. Chico Ray Jr., MD Abdomen/Pelvis CT 03/17/17527 Signed Impressions: Service Date/Time: Friday, March 17, 2017 06:29 - CONCLUSION: 1. Small bilateral pleural effusions with associated passive atelectasis. 2. Cardiomegaly with small pericardial effusion. 3. Small volume ascites. 4. Atrophic kidneys. 5. Prior cholecystectomy. Chico Ray Jr., MD Differential Diagnosis Differential diagnosis including gastritis, PUD, pancreatitis, cholecystitis, colitis, UTI, pyelonephritis, nephrolithiasis. Narrative Course 66-year-old male with abdominal pain. History of stage renal disease on dialysis. Patient has been noncompliant with his dialysis. Patient's potassium 5.8. Slight hemolysis noted. Repeat potassium level order. Patient advised to call his pantograph i engraver for dialysis today. Diagnosis Primary Impression: Abdominal pain Qualified Codes: R10.9 - Unspecified abdominal pain Additional Impression: End stage renal disease on dialysis Patient Instructions: General Instructions Additional Instructions: Take medication as needed for abdominal pain. Follow-up with personal physician. Follow-up with pantograph i engraver for dialysis. Return if worse. Med/Other Pt SpecificInfo: Prescription(s) given Scripts Dicyclomine (Bentyl) 10 Mg Cap 10 MG PO TID Y for Bowel Management, #21 CAP 0 Refills Prov: Zeferino Jorge MD 03/17/17 Pantoprazole (Protonix) 20 Mg Tab 20 MG PO DAILY for Reflux, #30 TAB 0 Refills Prov: Zeferino Jorge MD 03/17/17 Disposition: 01 DISCHARGE HOME Condition: Stable Zeferino Jorge MD Mar 17, 2017 05:36
--- NOTE | 2017-03-17 05:46 | RADRPT ---
EXAM DATE/TIME: 03/17/2017 05:33 [facility] COMPARISON: CHEST SINGLE AP, February 03, 2017, 12:17. INDICATIONS : Short of breath. MEDICAL HISTORY : Cardiovascular disease. SURGICAL HISTORY : Pacemaker. ENCOUNTER: Initial ACUITY: 1 day PAIN SCORE: 0/10 LOCATION: Bilateral chest FINDINGS: A single portable frontal view of the chest shows cardiomegaly and pulmonary vascular engorgement. Bi lateral pleural effusions which are small with bibasilar intra-alveolar infiltrates. Pacing device ov erlies the right chest. CONCLUSION: Pulmonary edema with small effusions. Appearance is similar to the prior study. Chico Ray Jr., MD on March 17, 2017 at 5:44 Board Certified Radiologist. This report was verified electronically.
[2017-03-17 05:48] VITALS: RESP 18
[2017-03-17 05:54] LABS: AUTOMATED NEUTROPHIL # 5.7 TH/MM3 (1.8-7.7); BASOPHIL # 0.1 TH/MM3 (0-0.2); BASOPHIL % 1.2 % (0.0-2.0); EOSINOPHIL # 0.2 TH/MM3 (0-0.4); EOSINOPHIL % 2.7 % (0.0-4.0); HEMATOCRIT 39.6 % (39.0-51.0); LYMPHOCYTE # 0.9 TH/MM3 (1.0-4.8); MEAN CELL VOLUME 94.8 FL (80.0-100.0); MEAN CORPUSCULAR HEMOGLOBIN 31.1 PG (27.0-34.0); MEAN CORPUSCULAR HGB CONC 32.8 % (32.0-36.0); MEAN PLATELET VOLUME 9.4 FL (7.0-11.0); MONO % 12.5 % (0.0-8.0); NEUT % 72.6 % (16.0-70.0); PLATELET COUNT 115 TH/MM3 (150-450); RED BLOOD COUNT 4.17 MIL/MM3 (4.50-5.90); RED CELL DISTRIBUTION WIDTH 17.3 % (11.6-17.2); WHITE BLOOD COUNT 7.9 TH/MM3 (4.0-11.0)
[2017-03-17 06:19] LABS: ALKALINE PHOSPHATASE 75 U/L (45-117); ALT (GPT) 20 U/L (12-78); AST (GOT) 27 U/L (15-37); BICARBONATE 24.4 MEQ/L (21.0-32.0); BLOOD UREA NITROGEN 59 MG/DL (7-18); CALCIUM 7.9 MG/DL (8.5-10.1); CHLORIDE 104 MEQ/L (98-107); CREATININE 6.18 MG/DL (0.60-1.30); GLOMERULAR FILTRATION RATE 9 ML/MIN (>89); GLUCOSE,RANDOM 145 MG/DL (74-106); LIPASE 117 U/L (73-393); MAGNESIUM 1.8 MG/DL (1.5-2.5); PHOSPHORUS 5.4 MG/DL (2.5-4.9); SODIUM (NA) 138 MEQ/L (136-145); TOTAL BILIRUBIN ADULT 0.8 MG/DL (0.2-1.0); TOTAL PROTEIN 7.2 GM/DL (6.4-8.2)
--- NOTE | 2017-03-17 06:43 | RADRPT ---
EXAM DATE/TIME: 03/17/2017 06:29 [facility] COMPARISON: No previous studies available for comparison. INDICATIONS : Diffuse abdominal pain with nausea and diarrhea. ORAL CONTRAST: No oral contrast ingested. RADIATION DOSE: 7.50 CTDIvol (mGy) MEDICAL HISTORY : Renal disease, end stage. Hypertension. Hepatitis C.GERD. Diabetes. Diverticulosis SURGICAL HISTORY : Cholecystectomy. Pacemaker. ENCOUNTER: Initial ACUITY: 1 day PAIN SCALE: 5/10 LOCATION: Bilateral abdomen TECHNIQUE: Volumetric scanning of the abdomen and pelvis was performed. Using automated exposure control and ad justment of the mA and/or kV according to patient size, radiation dose was kept as low as reasonably achievable to obtain optimal diagnostic quality images. DICOM format image data is available electro nically for review and comparison. FINDINGS: LOWER LUNGS: Small bilateral pleural effusions. The left is larger than the right. There is associated passive ate lectasis. Heart is enlarged. Coronary artery atherosclerotic calcifications are extensive. Small peter cardial effusion. LIVER: Homogeneous density without lesion. There is no dilation of the biliary tree. The gallbladder is petros gically absent. SPLEEN: Normal size without lesion. PANCREAS: Within normal limits. KIDNEYS: Kidneys are atrophic bilaterally. There is no mass, stone, or hydronephrosis. ADRENAL GLANDS: Within normal limits. VASCULAR: There is no aortic aneurysm. Diffuse calcified plaque. BOWEL/MESENTERY: The stomach, small bowel, and colon demonstrate no acute abnormality. There is no free intraperitone al air. Moderate volume ascites. ABDOMINAL WALL: Within normal limits. RETROPERITONEUM: There is no lymphadenopathy. BLADDER: No wall thickening or mass. REPRODUCTIVE: Within normal limits. INGUINAL: There is no lymphadenopathy or hernia. MUSCULOSKELETAL: Within normal limits for patient age. CONCLUSION: 1. Small bilateral pleural effusions with associated passive atelectasis. 2. Cardiomegaly with small pericardial effusion. 3. Small volume ascites. 4. Atrophic kidneys. 5. Prior cholecystectomy. Chico Ray Jr., MD on March 17, 2017 at 6:38 Board Certified Radiologist. This report was verified electronically.
[2017-03-17 06:53] LABS: INTERNATIONAL NORMALIZED RATIO 1.6 RATIO; PROTHROMBIN TIME - PATIENT 15.8 SEC (9.8-11.6)
[2017-03-17] MEDS ORDERED: PANT20 PO (07:11)
[2017-03-17] MEDS ORDERED: DICY10 PO (07:11)
[2017-03-17 08:22] VITALS: BP 136/79
--- NOTE | 2017-03-17 17:27 | EKG ---
Date Performed: 03/17/2017 Time Performed: 05:40:51 PTAGE: 66 years EKG: SINUS TACHYCARDIA LOW QRS VOLTAGE IN EXTREMITY LEADS PATTERN CONSISTENT WITH PULMONARY DISE ASE SEPTAL MYOCARDIAL INFARCTION. When compared to previous tracing, patient has now converted To sin us tachycardia verses ectopic atrial tachicardia / atrial Flutter With a rapid ventricular response. ABNORMAL ECG PREVIOUS TRACING : 02/03/2017 15.14.58 DOCTOR: Taylor Gonzalez Interpretating Date/Time 03/17/2017 17:26:20
== END 2017-03-17 08:24 | disposition home or self-care (01) ==
LOC: NEPC 05:19
DX: R10.9 Unspecified abdominal pain (principal); I13.2 Hypertensive heart and chronic kidney disease with heart failure and with stage 5 chronic kidney disease, or end stage renal disease; I50.9 Heart failure, unspecified; E11.22 Type 2 diabetes mellitus with diabetic chronic kidney disease; N18.6 End stage renal disease; K21.9 Gastro-esophageal reflux disease without esophagitis; Z91.15 Patient's noncompliance with renal dialysis; Z99.2 Dependence on renal dialysis
CPT/HCPCS: 71045; 74176; 80053; 83690; 83735; 84100; 84132; 85025; 85610; 85730; 93005; 96374; 96375; 99285; J2270; J2405

== ENCOUNTER 2017-03-19 10:29 | Emergency (ER) | payer MEDICARE, MEDICAID ==
[~2017-03-19] VITALS: Ht 180.3 cm; Wt 68.0 kg
[~2017-03-19 10:29] MED LIST changes: +DICY10 PO; +PANT20 PO
[2017-03-19] MEDS ORDERED: CALCIUM CHLORIDE 10% SOLN 1 GRAM/10 ML SYR IV ONE (10:30)
[2017-03-19] MEDS ORDERED: DEXTROSE 50% IN WATER 50 ML SYRINGE IV ONE (10:30)
[2017-03-19] MEDS ORDERED: NALOXONE HCL 4 MG/10 ML MDV IV ONE (10:30)
[2017-03-19] MEDS ORDERED: EPINEPHrine HCL (1:10,000) 1 MG/10 ML SYRINGE IV ONE (10:30)
[2017-03-19] MEDS ORDERED: SODIUM BICARBONATE 8.4% INJ 50 MEQ/50 ML SYR IV ONE (10:30)
[2017-03-19] MEDS ORDERED: DEXTROSE 50% IN WATER 50 ML SYRINGE ONE (10:33)
[2017-03-19] MEDS ORDERED: DEXTROSE 50% IN WATER 50 ML VIAL(D50) IV PUSH PRN (10:45)
[2017-03-19] MEDS ORDERED: SODIUM CHLORIDE 0.9% FLUSH 10 ML FLUSH IV FLUSH PRN (10:45)
--- NOTE | 2017-03-19 11:37 | PD ---
HPI Chief Complaint: Code Blue Time Seen by Provider: 10:32 Travel History International Travel<30 days: No Contact w/Intl Traveler<30days: No History of Present Illness HPI 66-year-old male patient with previous history of multiple medical issues, end- stage renal disease on dialysis, noncompliant with dialysis, was recently seen for abdominal pain with elevated potassium levels and was told to follow-up for dialysis, here today because he was found unresponsive and EMS was called. When EMS arrived, found the his blood sugar was 20, gave him D50, and patient became a bit more responsive but was lethargic on my evaluation in the ER on arrival. He seems to be quite disoriented initially. Blood sugar was 60 in the ER and an additional dose of D50 was ordered. However, as I was beginning to do a workup on him, patient's breathing became agonal and he stopped breathing in the ER, he initially had a carotid pulse and that stopped as well, and CPR was initiated. Initial epinephrine and bicarbonate was ordered for him , [id number] was initiated. However, as I started to do CPR on him, additional paperwork with the DNR on record was found and CPR was stopped. Modifying Factors: None Associated Signs & Symptoms: Altered mental status, CODE BLUE Risk Factors: Elderly, end-stage renal disease on dialysis PFSH Past Medical History Anemia: Yes Arthritis: No Asthma: No Anxiety: Yes Depression: No Heart Rhythm Problems: Yes (Pt. has pacemaker with defibrillator ) Cancer: No Cardiac Catheterization: Yes (stents X 5) High Cholesterol: No Chest Pain: No Congestive Heart Failure: Yes COPD: No Dialysis: Yes Endocrine: Yes Gastrointestinal Disorders: Yes (RELUX, DIVERTICULOSIS) GERD: Yes Genitourinary: Yes Headaches: No Hepatitis: No Hiatal Hernia: No Hypertension: Yes Immune Disorder: No Kidney Stones: No Musculoskeletal: Yes Neurologic: Yes Psychiatric: Yes Reproductive: No Immunizations Current: Yes Migraines: No Myocardial Infarction: Yes Renal Failure: Yes (ESRD) Seizures: No Sleep Apnea: No Thyroid Disease: No Ulcer: Yes Past Surgical History Abdominal Surgery: Yes (gallbladder) AICD: Yes Arteriovenous Shunt: No Body Medical Devices: LEFT ARM FISTULA Cardiac Surgery: Yes (Cardiac cath with 5 stents, pacemaker with defibrillator) Cholecystectomy: Yes Ear Surgery: No Endocrine Surgery: No Eye Surgery: Yes (Cataracts removed from Left eye) Genitourinary Surgery: No Gynecologic Surgery: No Insulin Pump: No Joint Replacement: No Neurologic Surgery: No Oral Surgery: Yes (Teeth removed) Pacemaker: No Thoracic Surgery: No Other Surgery: Yes (LUE fistula and R port) Social History Alcohol Use: No Tobacco Use: No Substance Use: No Allergies-Medications (Allergen,Severity, Reaction): Coded Allergies: penicillin G (Verified Allergy, Severe, "WENT CRAZY" - NOT SURE OF REACTION, 03/17/17) Reported Meds & Prescriptions Reported Meds & Active Scripts Active Bentyl (Dicyclomine HCl) 10 Mg Cap 10 Mg PO TID PRN Protonix (Pantoprazole Sodium) 20 Mg Tab 20 Mg PO DAILY Carvedilol 6.25 Mg Tab 6.25 Mg PO BID [place] (Hydrocodone-Acetaminophen) 5 Mg-325 Mg Tab 1 Tab PO BID PRN Ativan (Lorazepam) 2 Mg Tab 2 Mg PO DAILY PRN Reported Protonix (Pantoprazole Sodium) 40 Mg Tab 1 Tab PO DAILY Review of Systems ROS Limitations: Altered Mental Status Physical Exam Narrative GENERAL: Well-developed elderly male patient currently and moderate distress, lethargic, disoriented, poorly responsive to pain. Initially had a poor but present gag response, airway patent. SKIN: Focused skin assessment warm/dry. HEAD: Notable for facial edema. Normocephalic. EYES: Pupils equal and round. No scleral icterus. No injection or drainage. ENT: No nasal bleeding or discharge. Mucous membranes pink and moist. NECK: Trachea midline. No JVD. CARDIOVASCULAR: Irregularly irregular. RESPIRATORY: No accessory muscle use. Clear to auscultation. Breath sounds equal bilaterally. GASTROINTESTINAL: Abdomen soft, non-tender, mildly distended. Hepatic and splenic margins not palpable. MUSCULOSKELETAL: No obvious deformities. No clubbing. No cyanosis. No edema. NEUROLOGICAL: Lethargic, poorly responsive to pain. PSYCHIATRIC: Lethargic, poorly responsive. Data Data Last Documented VS Vital Signs Date Time Temp Pulse Resp B/P (MAP) Pulse Ox O2 Delivery O2 Flow Rate FiO2 03/19/17 10:35 15.00 100 Orders Orders Dextrose 50% [place] (Syr) Inj (D50w (Syr (03/19/17 10:33) Electrocardiogram (03/19/17 10:32) Dextrose 50% [place] (Vial) Inj (D50w (Vi (03/19/17 10:45) Sodium Chloride 0.9% Flush (Ns Flush) (03/19/17 10:45) MDM Medical Decision Making Medical Screen Exam Complete: Yes Emergency Medical Condition: Yes Medical Record Reviewed: Yes Differential Diagnosis ICH versus severe dehydration versus metabolic issues versus hyperkalemia versus renal failure versus sepsis Narrative Course I was called into the room because the patient's breathing became agonal and he became unresponsive. They were not able to obtain a good saturation on him and good pulses on him. CPR was initiated but was called after DNR paperwork arrived. Patient minutes later in the ER, cardiac standstill confirmed by ultrasound. Patient's daughter was notified by clergy on-call. Suspected cause could be related to end-stage renal disease, possible hyperkalemia. Procedures Procedure Narrative Transthoracic cardiac ultrasound was done by me which shows cardiac standstill. There is a small amount of pleural effusion notable on ultrasound. This is likely to be old, likely secondary to uremia considering the end-stage renal patient. Diagnosis Primary Impression: Altered mental status Additional Impression: Pulseless electrical activity Disposition: 20 Condition: Elli Ledesma MD Mar 19, 2017 11:37
== END 2017-03-19 15:55 | disposition expired ==
LOC: NEPE 10:29 → NEPI 15:55
DX: R41.82 Altered mental status, unspecified (principal); I46.9 Cardiac arrest, cause unspecified; I12.0 Hypertensive chronic kidney disease with stage 5 chronic kidney disease or end stage renal disease; I13.2 Hypertensive heart and chronic kidney disease with heart failure and with stage 5 chronic kidney disease, or end stage renal disease; I50.9 Heart failure, unspecified; D63.8 Anemia in other chronic diseases classified elsewhere; K21.9 Gastro-esophageal reflux disease without esophagitis; I25.2 Old myocardial infarction; Z87.19 Personal history of other diseases of the digestive system
CPT/HCPCS: 92950; 99285; J0171; J2310